=== PATIENT | female | born 1955 | race Caucasian/White ===

== ENCOUNTER 2016-10-18 09:25 | Inpatient (IN) | payer OTHER, MEDICARE ==
[2016-10-18] VITALS (17 sets, daily range): BP systolic 113–183; BP diastolic 75–126; PULSE 92–142; RESP 14–24; TEMP 97.6; O2SAT 98–100
[~2016-10-18] VITALS: Ht 157.5 cm; Wt 59.6 kg
[2016-10-18] MEDS ORDERED: ROCURONIUM INJ 50 MG/5 ML VIAL ONE (09:30)
[2016-10-18] MEDS ORDERED: ETOMIDATE 20 MG/10 ML VIAL ONE (09:30)
[2016-10-18] MEDS ORDERED: PIPERACIL-TAZO 4.5 GM PREMIX 100 ML IV STA (09:40)
[2016-10-18] MEDS ORDERED: SODIUM CHLOR 0.9% 1000 ML INJ 1,000 ML IV SCH (09:40)
[2016-10-18] MEDS ORDERED: VANCOMYCIN INJ 1,000 MG in SODIUM CHLOR 0.9% 250 ML INJ 250 ML IV STA (09:40)
[2016-10-18] MEDS ORDERED: NALOXONE HCL 2 MG/2 ML VIAL IV ONE (09:45)
[2016-10-18] MEDS ORDERED: SODIUM CHLORIDE 0.9% FLUSH 5 ML FLUSH IVF PRN ×2 (09:45)
[2016-10-18] MEDS ORDERED: ETOMIDATE 20 MG/10 ML VIAL IVP ONE (09:45)
[2016-10-18 10:07] LABS: I-STAT POTASSIUM 4.4 MMOL/L (3.5-4.9)
--- NOTE | 2016-10-18 10:07 | RADRPT ---
EXAM DATE/TIME: 10/18/2016 09:43 [facility] COMPARISON: No previous studies available for comparison. INDICATIONS : Post intubation. MEDICAL HISTORY : Unobtainable. SURGICAL HISTORY : Unobtainable. ENCOUNTER: Initial ACUITY: 1 day PAIN SCORE: Non-responsive. LOCATION: Bilateral chest FINDINGS: Hyperinflation. Endotracheal tube tip terminates 1.8 cm above the da. NG tube tip terminates in t he stomach. No consolidation or effusion. Heart size normal. Osseous structures are intact. CONCLUSION: Clear lungs. Evangelist Hurley MD on October 18, 2016 at 10:05 Board Certified Radiologist. This report was verified electronically.
[2016-10-18] MEDS ORDERED: IOHEXOL 350 MG/ML 10 ML VIAL (for RAD DIAG) IV ONE (10:08)
[2016-10-18 10:20] LABS: APTT (PATIENT) 26.6 SEC (24.3-30.1); PROTHROMBIN TIME - PATIENT 11.1 SEC (9.8-11.6)
[2016-10-18 10:22] LABS: AUTOMATED NEUTROPHIL # 17.2 TH/MM3 (1.8-7.7); BASOPHIL # 0.2 TH/MM3 (0-0.2); BASOPHIL % 1.2 % (0.0-2.0); EOSINOPHIL % 0.2 % (0.0-4.0); HEMATOCRIT 49.2 % (35.0-46.0); HEMO FLAGS DIFF FINAL; LYMPH % 5.5 % (9.0-44.0); LYMPHOCYTE # 1.1 TH/MM3 (1.0-4.8); MEAN CELL VOLUME 97.1 FL (80.0-100.0); MEAN CORPUSCULAR HEMOGLOBIN 32.8 PG (27.0-34.0); MEAN CORPUSCULAR HGB CONC 33.7 % (32.0-36.0); MONO % 5.6 % (0.0-8.0); NEUT % 87.5 % (16.0-70.0); PLATELET COUNT 502 TH/MM3 (150-450); RED BLOOD COUNT 5.07 MIL/MM3 (4.00-5.30); RED CELL DISTRIBUTION WIDTH 13.3 % (11.6-17.2); WHITE BLOOD COUNT 19.6 TH/MM3 (4.0-11.0)
[2016-10-18 10:25] LABS: ALT (GPT) 35 U/L (10-53)
[2016-10-18 10:28] LABS: AST (GOT) 49 U/L (15-37)
--- NOTE | 2016-10-18 10:29 | RADRPT ---
EXAM DATE/TIME: 10/18/2016 10:00 [facility] COMPARISON: No previous studies available for comparison. INDICATIONS : Altered mental status. RADIATION DOSE: 56.35 CTDIvol (mGy) MEDICAL HISTORY : Non-responsive. SURGICAL HISTORY : Non-responsive. ENCOUNTER: Initial ACUITY: 1 day PAIN SCALE: Non-responsive LOCATION: cranial TECHNIQUE: Multiple contiguous axial images were obtained of the head. Using automated exposure control and adj ustment of the mA and/or kV according to patient size, radiation dose was kept as low as reasonably a chievable to obtain optimal diagnostic quality images. FINDINGS: CEREBRUM: The ventricles are normal for age. No evidence of midline shift, mass lesion, hemorrhage or acute in farction. No extra-axial fluid collections are seen. POSTERIOR FOSSA: The cerebellum and brainstem are intact. The 4th ventricle is midline. The cerebellopontine angle i s unremarkable. EXTRACRANIAL: The visualized portion of the orbits is intact. SKULL: The calvaria is intact. No evidence of skull fracture. CONCLUSION: Normal examination. Eavngelist Hurley MD on October 18, 2016 at 10:27 Board Certified Radiologist. This report was verified electronically.
[2016-10-18 10:37] LABS: ACETAMINOPHEN LESS THAN 2.0 MCG/ML (10.0-30.0)
[2016-10-18 10:38] LABS: ALKALINE PHOSPHATASE 103 U/L (45-117); CREATINE KINASE 397 U/L (26-192); INDIRECT BILIRUBIN 0.5 MG/DL (0.0-0.8); TOTAL BILIRUBIN ADULT 0.6 MG/DL (0.2-1.0)
--- NOTE | 2016-10-18 10:39 | RADRPT ---
EXAM DATE/TIME: 10/18/2016 10:08 [facility] COMPARISON: No previous studies available for comparison. INDICATIONS : Evaluate for aortic dissection. IV CONTRAST: 75 cc Omnipaque 350 (iohexol) IV RADIATION DOSE: 6.45 CTDIvol (mGy) MEDICAL HISTORY : Non-responsive. SURGICAL HISTORY : Non-responsive. ENCOUNTER: Initial ACUITY: 1 day PAIN SCALE: Non-responsive LOCATION: Abdomen TECHNIQUE: Volumetric scanning was performed using a multi-row detector CT scanner. The data was post processed with a variety of visualization algorithms including full volume maximum intensity projection, multi -planar sliding thin slab reformation, curved planar reformation, and surface rendering techniques. Using automated exposure control and adjustment of the mA and/or kV according to patient size, radiat ion dose was kept as low as reasonably achievable to obtain optimal diagnostic quality images. FINDINGS: LUNGS: There is a mild infiltrate left lower lobe and mild atelectasis at the right lung base. MEDIASTINUM: No abnormally enlarged lymph nodes by CT criteria. No axillary or hilar abnormalities are identified. ABDOMEN: The liver and spleen are free of focal defects however there is mild nodular hepatic contour and left lobe hypertrophy. Cirrhosis suspected.. The gallbladder and pancreas demonstrate no abnormality. The adrenal glands are normal. The kidneys demonstrate no evidence of solid renal mass or hydronephrosis . No free fluid or abdominal masses are identified. No para-aortic adenopathy is seen. Cholelithiasis is identified. PELVIS: No evidence of free fluid or pelvic mass. No abnormally enlarged inguinal or retroperitoneal lymph no karie are present. The bladder is unremarkable. THORACIC AORTA: The thoracic aortic root is normal with normal branching of the great vessels. There is no evidence of aneurysm or dissection. ABDOMINAL AORTA: There is no aneurysm or dissection. Celiac, superior mesenteric artery, inferior mesenteric artery an d renal arteries are patent bilaterally. There is mild atherosclerotic plaquing identified throughout the abdomen and pelvis. PELVIC VESSELS: The internal iliac and external iliac vessels are patent without aneurysm or stenosis. CONCLUSION: 1. No evidence for aortic dissection. 2. Tree in bud infiltrate left lower lobe. Evangelist Hurley MD on October 18, 2016 at 10:34 Board Certified Radiologist. This report was verified electronically.
[2016-10-18 10:40] LABS: BLOOD GAS BASE EXCESS -7.4 mmol/L (-2-2); BLOOD GAS CARBOXYHEMOGLOBIN 1.8 % (0-4); BLOOD GAS HCO3 18 mmol/L (22-26); BLOOD GAS METHEMOGLOBIN 1.9 % (0-2); BLOOD GAS O2 HGB SATURATION 96 % (90-100); BLOOD GAS OXYGEN CONTENT 22.3 Vol % (12.0-20.0); BLOOD GAS PCO2 35 mmHg (38-42); BLOOD GAS PO2 250 mmHG (61-120); BLOOD GAS TOTAL HGB 16.2 G/DL (12.0-16.0); TEMP CORR TO 98.6
[2016-10-18 10:41] LABS: CRITICAL VALUE NO; DRAW SITE RT RADIAL; FIO2 50 %; NUMBER OF ARTERIAL PUNCTURES 1; OXYGEN DEVICE VENTILATOR; STAT YES; ULNAR PULSE PRESENT; VENT SETTINGS AC14/500/PEEP5
[2016-10-18] MEDS ORDERED: HEPARIN SODIUM - IV 10,000 UNITS/10 ML VIAL IV ONE (10:45)
[2016-10-18 10:53] LABS: CKMB 13.9 NG/ML (0.5-3.6)
[2016-10-18] MEDS ORDERED: DEXTROSE 50% IN WATER 50 ML VIAL(D50) IV PUSH PRN (11:00)
[2016-10-18] MEDS ORDERED: POTASSIUM PHOSPHATE MONOBASIC 500 MG TAB PO/TUBE PRN (11:00)
[2016-10-18] MEDS ORDERED: MAGNESIUM SULFATE INJ 4 GM in SODIUM CHLORIDE 0.9% INJ 92 ML IV PRN (11:00)
[2016-10-18] MEDS ORDERED: SODIUM PHOSPHATE INJ 30 MMOL in SODIUM CHLOR 0.9% 250 ML INJ 240 ML IV PRN (11:00)
[2016-10-18] MEDS ORDERED: MISCELLANEOUS NURSING INFORMATION XX SCH (11:00)
[2016-10-18] MEDS ORDERED: MAGNESIUM OXIDE 400 MG TAB PO PRN (11:00)
[2016-10-18] MEDS ORDERED: POTASSIUM CL 40 MEQ/30 ML LIQ UDC PO/TUBE PRN ×2 (11:00)
[2016-10-18] MEDS ORDERED: MAGNESIUM SULFATE INJ 2 GM in SODIUM CHLORIDE 0.9% INJ 96 ML IV PRN (11:00)
[2016-10-18] MEDS ORDERED: ONDANSETRON HCL 4 MG/2 ML VIAL IV PRN (11:00)
[2016-10-18] MEDS ORDERED: CHLORHEXIDINE GLUCONATE 2 % 1 PACK (2 CLOTHS) TOP PRN (11:00)
[2016-10-18] MEDS ORDERED: POTASSIUM CHLOR 40 MEQ PREMIX 100 ML IV PRN ×2 (11:00)
[2016-10-18] MEDS ORDERED: SODIUM CHLORIDE 0.9% FLUSH 5 ML FLUSH IV FLUSH PRN (11:00)
[2016-10-18] MEDS ORDERED: POTASSIUM PHOSPHATE MONOBASIC 500 MG TAB PO PRN (11:00)
[2016-10-18] MEDS ORDERED: POTASSIUM PHOSPHATE INJ 30 MMOL in SODIUM CHLOR 0.9% 250 ML INJ 250 ML IV PRN (11:00)
[2016-10-18] MEDS ORDERED: METOPROLOL TARTRATE 5 MG/5 ML VIAL IV PUSH ONE ×2 (11:15→17:00)
[2016-10-18 11:19] LABS: BACTERIA, URINE RARE /hpf; BLOOD, URINE SMALL (NEG); COMMENT (UR) CATH-CULTURE IND; CULTURE IF INDICATED CATH CULTURE IND; GLUCOSE,URINE NEG (NEG); HYALINE CAST, URINE 7 /lpf (RARE); KETONE, URINE TRACE mg/dL (NEG); MUCUS URINE FEW /lpf (OCC); NITRITE,URINE NEG (NEG); PH, URINE 6.5 (5.0-8.5); SQUAMOUS EPITHELIAL CELL URINE 1 /hpf (0-5); URINE COLOR LIGHT-YELLOW (YELLW/STRAW)
[2016-10-18 11:31] LABS: AMPHETAMINE, URINE NEG (NEG); BARBITURATES, URINE NEG (NEG); COCAINE, URINE NEG (NEG)
[2016-10-18] MEDS: PROPOFOL 1000 MG/100 ML INJ 100 ML IV SCH (11:45)
--- NOTE | 2016-10-18 11:48 | PD ---
HPI Chief Complaint: Altered Mental Status Time Seen by Provider: 09:40 Travel History International Travel<30 days: No Contact w/Intl Traveler<30days: No Traveled to known affect area: No History of Present Illness HPI Patient is a 61-year-old female presents emergency department via EMS with altered mental status. Patient found by a friend unresponsive in her home this morning. Unknown when she was last seen normal. Vital signs stable per EMS en route, but GCS 3. Friends state that she apparently wears morphine patches, but no patches were found on patient. Pupils 3 per EMS. No Narcan administered prior to arrival. EMS noted dried vomitus around the mouth and hair. No family present at this time. [facility] Past Medical History Medical History: Unable to Obtain Influenza Vaccination: No ?: Unknown Past Surgical History Surgical History: Unable to Obtain Social History Alcohol Use: No (UNKNOWN) Tobacco Use: No (UNKNOWN ) Substance Use: No (UNKNOWN) Allergies-Medications (Allergen,Severity, Reaction): Coded Allergies: UNOBTAINABLE (Unverified , 10/18/16) Review of Systems ROS Limitations: Clinical Condition, Altered Mental Status Physical Exam Exam Limitations: Clinical Condition, Altered Mental Status Narrative GENERAL: Adult female appearing older than stated age, thin in no acute distress SKIN: Warm and dry. HEAD: Atraumatic. Normocephalic. EYES: Pupils equal and round. 2-3 mm, reactive bilaterally. No scleral icterus. No injection or drainage. ENT: Poor dentition. No gag reflex. NECK: Supple CARDIOVASCULAR: Regular rate and rhythm. No murmur appreciated. Hypertensive. RESPIRATORY: No accessory muscle use. Clear to auscultation. Breath sounds equal bilaterally. GASTROINTESTINAL: Abdomen soft, non-tender, nondistended. MUSCULOSKELETAL: No obvious deformities. No clubbing. No cyanosis. No edema. NEUROLOGICAL: GCS 3. No gag reflex. PSYCHIATRIC: Deferred given mental status Data Data Last Documented VS Vital Signs Date Time Temp Pulse Resp B/P Pulse Ox O2 Delivery O2 Flow Rate FiO2 10/18/16 10:39 119 14 183/126 99 Ventilator 50 10/18/16 09:28 97.6 Orders Etomidate Inj (Amidate Inj) (10/18/16 09:30) Rocuronium Inj (Zemuron Inj) (10/18/16 09:30) Electrocardiogram (10/18/16 09:40) Alcohol (Ethanol) (10/18/16 09:40) Ammonia (10/18/16 09:40) Complete Blood Count With Diff (10/18/16 09:40) Creatine Kinase (Cpk) (10/18/16 09:40) Drug Screen, Random Urine (10/18/16 09:40) Prothrombin Time / Inr (Pt) (10/18/16 09:40) Act Partial Throm Time (Ptt) (10/18/16 09:40) Salicylates (Aspirin) (10/18/16 09:40) Troponin I (10/18/16 09:40) Tylenol (Acetaminophen) (10/18/16 09:40) Thyroid Stimulating Hormone (10/18/16 09:40) Lactic Acid Sepsis Protocol (10/18/16 09:40) Urinalysis - C+S If Indicated (10/18/16 09:40) Arterial Blood Gas (Abg) (10/18/16 09:40) Blood Culture (10/18/16 09:40) Chest, Single Ap (10/18/16 09:40) Ct Brain W/O Iv Contrast(Rout) (10/18/16 09:40) Ecg Monitoring (10/18/16 09:40) Iv Access Insert/Monitor (10/18/16 09:40) Oximetry (10/18/16 09:40) Urinary Catheter Insert/Apply (10/18/16 09:40) Naloxone Inj (Narcan Inj) (10/18/16 09:45) Sodium Chloride 0.9% Flush (Ns Flush) (10/18/16 09:45) Sodium Chlor 0.9% 1000 Ml Inj (Ns 1000 M (10/18/16 09:40) Ng Gastric Tube Insert/Monitor (10/18/16 09:40) Etomidate Inj (Amidate Inj) (10/18/16 09:45) Sodium Chloride 0.9% Flush (Ns Flush) (10/18/16 09:45) Restraints Non-Violent JOHN.Q3H (10/18/16 09:40) Lipase (10/18/16 09:40) Vancomycin Inj (Vancomycin Inj) (10/18/16 09:40) Piperacil-Tazo 4.5 Gm Premix (Zosyn 4.5 (10/18/16 09:40) Cta Thor Abd Aorta W Iv C W3d (10/18/16 09:45) I-Stat Profile (10/18/16 09:45) I-Stat Creatinine (10/18/16 09:45) Iohexol 350 Inj (Omnipaque 350 Inj) (10/18/16 10:08) Hepatic Functional Panel (10/18/16 09:35) CKMB (10/18/16 09:35) CKMB% (10/18/16 09:35) Heparin Infusion JOHN.Q1H (10/18/16 10:42) Heparin Inj (Heparin Inj) (10/18/16 10:45) Heparin Inj (Heparin Inj) (10/18/16 16:45) Heparin Inj (Heparin Inj) (10/18/16 16:45) Heparin-D5w Inj (Heparin-D5w Inj) (10/18/16 10:45) Cbc No Diff, Includes Plts (10/21/16 06:00) Act Partial Throm Time (Ptt) (10/18/16 17:42) Occult Blood (Hemoccult) Stool (10/18/16 10:42) Electrocardiogram (10/18/16 ) Admit Order (Ed Use Only) (10/18/16 11:00) Labs Laboratory Tests Test 10/18/16 10/18/16 10/18/16 09:35 10:30 10:50 White Blood Count 19.6 TH/MM3 Red Blood Count 5.07 MIL/MM3 Hemoglobin 16.6 GM/DL Bedside Hemoglobin 18.0 G/DL Hematocrit 49.2 % Bedside Hematocrit 53.0 % Mean Corpuscular Volume 97.1 FL Mean Corpuscular Hemoglobin 32.8 PG Mean Corpuscular Hemoglobin 33.7 % Concent Red Cell Distribution Width 13.3 % Platelet Count 502 TH/MM3 Mean Platelet Volume 7.3 FL Neutrophils (%) (Auto) 87.5 % Lymphocytes (%) (Auto) 5.5 % Monocytes (%) (Auto) 5.6 % Eosinophils (%) (Auto) 0.2 % Basophils (%) (Auto) 1.2 % Neutrophils # (Auto) 17.2 TH/MM3 Lymphocytes # (Auto) 1.1 TH/MM3 Monocytes # (Auto) 1.1 TH/MM3 Eosinophils # (Auto) 0.0 TH/MM3 Basophils # (Auto) 0.2 TH/MM3 CBC Comment DIFF FINAL Differential Comment Prothrombin Time 11.1 SEC Prothromb Time International 1.0 RATIO Ratio Activated Partial 26.6 SEC Thromboplast Time Bedside Sodium 131 MMOL/L Bedside Potassium 4.4 MMOL/L Bedside Chloride 105 MMOL/L Bedside Blood Urea Nitrogen 13 MG/DL Bedside Creatinine 1.3 MG/DL Bedside Glucose 142 MG/DL Total Bilirubin 0.6 MG/DL Direct Bilirubin 0.1 MG/DL Indirect Bilirubin 0.5 MG/DL Aspartate Amino Transf 49 U/L (AST/SGOT) Alanine Aminotransferase 35 U/L (ALT/SGPT) Alkaline Phosphatase 103 U/L Total Creatine Kinase 397 U/L Creatine Kinase MB 13.9 NG/ML Creatine Kinase MB % 3.5 % Troponin I 4.80 NG/ML Total Protein 7.6 GM/DL Albumin 3.9 GM/DL Lipase 145 U/L Thyroid Stimulating Hormone 0.269 uIU/ML 3rd Gen Salicylates Level 4.5 MG/DL Acetaminophen Level LESS THAN 2.0 MCG/ML Ethyl Alcohol Level LESS THAN 3 MG/DL Blood Gas Puncture Site RT RADIAL Blood Gas Patient Temperature 98.6 Blood Gas HCO3 18 mmol/L Blood Gas Base Excess -7.4 mmol/L Blood Gas Oxygen Saturation 96 % Arterial Blood pH 7.32 Arterial Blood Partial 35 mmHg Pressure CO2 Arterial Blood Partial 250 mmHG Pressure O2 Arterial Blood Oxygen Content 22.3 Vol % Arterial Blood 1.8 % Carboxyhemoglobin Arterial Blood Methemoglobin 1.9 % Blood Gas Hemoglobin 16.2 G/DL Oxygen Delivery Device VENTILATOR Blood Gas Ventilator Setting AC14/500/PEEP5 Blood Gas Inspired Oxygen 50 % Urine Color LIGHT-YELLOW Urine Turbidity CLEAR Urine pH 6.5 Urine Specific [place] 1.050 Urine Protein 30 mg/dL Urine Glucose (UA) NEG mg/dL Urine Ketones TRACE mg/dL Urine Occult Blood SMALL Urine Nitrite NEG Urine Bilirubin NEG Urine Urobilinogen LESS THAN 2.0 MG/DL Urine Leukocyte Esterase NEG Urine RBC 3 /hpf Urine WBC 5 /hpf Urine Squamous Epithelial 1 /hpf Cells Urine Bacteria RARE /hpf Urine Hyaline Casts 7 /lpf Urine Mucus FEW /lpf Microscopic Urinalysis Comment CATH-CULTURE IND Urine Opiates Screen NEG Urine Barbiturates Screen NEG Urine Amphetamines Screen NEG Urine Benzodiazepines Screen POS Urine Cocaine Screen NEG Urine Cannabinoids Screen NEG MDM Medical Decision Making Medical Screen Exam Complete: Yes Emergency Medical Condition: Yes Medical Record Reviewed: Yes Differential Diagnosis 61-year-old female here with altered mental status, unknown when she was last seen normal. Patient is GCS 3. Differential includes ICH, ischemic CVA, elect to light abnormality, hyperammonemia, alcohol intoxication, overdose, benzodiazepine versus opioid versus other, arrhythmia, electrolyte abnormality, ACS. No evidence of hypoxic versus hypercapnic respiratory failure at this time. Narrative Course Patient met by myself upon emergency department arrival. Placed on monitor, IV established and blood obtained. Given her pupils are 2-3 mm she was given 2 mg of Narcan with no improvement. Patient remains GCS 3 with no gag reflex. Intubated by myself, please see procedure note. Patient tolerated procedure well. Post procedure chest x-ray shows endotracheal tube in good position. OG and Garces were placed. Twelve-lead EKG was obtained showing sinus rhythm with ST elevation in leads V2, V3, V4. No reciprocal changes were seen. STEMI alert was activated given her altered mental status and inability to tell me whether she is or is not having chest pain. With her altered mental status or for she would be anticoagulated we would need a head CT in addition to a CT dissection study to rule out dissection because of her altered mental status. Patient was expedited to CT. CT of the brain was negative. CT of the chest abdomen and pelvis were unremarkable. Patient was given heparin bolus and drip. On CT she did also have a lower lobe pulmonary infiltrate and so was covered with vancomycin and Zosyn. This very well may be aspiration related given her vomitus on the face and hair. I spoke with Dr. Cruz of cardiology, and given patient's clinical picture, we decided to obtain troponin and stat echocardiogram as her EKG does not show any evolving changes, no reciprocal changes and is not classic for STEMI. A stat bedside echo was performed, results remain pending at the time this dictation, but preliminarily she does appear to have some apical hypokinesis but this does not appear to be focal to anterior vessel distribution. Decision made with myself, Dr. Cruz, and Dr. Purvis and svp business development to monitor her and treat her medically. Patient therefore was not brought to the cardiac catheterization lab. She was given 1 L normal saline bolus. Laboratory workup notable for WBC 19.6, hemoglobin 8.0, CPK 397, CK-MB percentage 3.5, troponin 4.8. Positive benzodiazepines in the urine. Critical Care Narrative Aggregate critical care time was 55 minutes. Time to perform other separately billable procedures was not included in the critical care time. My time did not include minutes spent treating any other patients simultaneously or on activities that did not directly contribute to the patient's treatment. The services I provided to this patient were to treat and/or prevent clinically significant deterioration that could result in: Neurologic decompensation, cardiopulmonary decompensation, , disability I provided critical care services requiring my management, as noted below: Chart data review, documentation time, medication orders and management, vital sign assessments/reviewing monitor data, ordering and reviewing lab tests, ordering and interpreting/reviewing x-rays and diagnostic studies, care of the patient and discussion of the patient with the admitting physicians. Procedures Procedure Narrative Risks and benefits were not discussed as patient is altered procedure was deemed emergent INTUBATION: The patient was put in optimal position for the procedure. Rapid sequence intubation was initiated by me using 15 milligrams of etomidate IV and 55 milligrams of rocuronium IV. The patient was intubated with a 7-5 cuffed endotracheal tube. Tube placement was confirmed by visualization of the tube and balloon passing through the cords, capnometry and subsequent chest x-ray. Breath sounds were equal and well aerated bilaterally postintubation. No breath sounds over stomach. Patient tolerated procedure well. Sepsis Criteria SIRS Criteria (2 or more): Heart rate over 90, RR > 20 or PaCO2 < 32, WBC > 09030, < 4000 or > 10% bands Sepsis Criteria (SIRS+source): Infect source susp/known Criteria Outcome: Meets SIRS criteria, Meets sepsis criteria Diagnosis Primary Impression: Altered mental status Qualified Code: R40.2431 - [place] coma scale total score 3-8, in the field ( EMT or ambulance) Additional Impressions: Leukocytosis Qualified Code: D72.829 - Leukocytosis, unspecified type Left lower lobe pneumonia Qualified Code: J18.1 - Pneumonia of left lower lobe due to infectious organism ST elevation OR (STEMI) Qualified Code: I21.3 - ST elevation myocardial infarction (STEMI), unspecified artery Elevated troponin Sepsis Qualified Code: A41.9 - Sepsis, due to unspecified organism Admitting Information Admitting Physician Requests: Admit Elba Gonzalez MD Oct 18, 2016 11:48
--- NOTE | 2016-10-18 11:51 | EC ---
Study Study Date:10/18/2016 STUDY CONCLUSIONS SUMMARY - Left ventricle: The cavity size was normal. Wall thickness was normal. Systolic function was mildly to moderately reduced. The estimated ejection fraction was in the range of 40% to 45%. Diffuse hypokinesis in all mid to distal territories. There is also some thinning suggestive of a more chronic process. - Mitral valve: Mildly calcified annulus. If LV function is below 40, please consider prescribing an ACEI or ARB or document rationale for non-use. PROCEDURE DATA STUDY STATUS: Elective. Procedure: Transthoracic echocardiography. Image quality was good. Scanning was performed from the parasternal, apical, and subcostal acoustic windows. Study completion: The patient tolerated the procedure well. Transthoracic echocardiography. M-mode, complete 2D, complete spectral Doppler, and color Doppler. Patient status: Inpatient. CARDIAC ANATOMY LEFT VENTRICLE: The cavity size was normal. Wall thickness was normal. Systolic function was mildly to moderately reduced. The estimated ejection fraction was in the range of 40% to 45%. Diffuse hypokinesis in all mid to distal territories. There is also some thinning suggestive of a more chronic process. AORTIC VALVE: Trileaflet; normal thickness leaflets. Doppler: Transvalvular velocity was within the normal range. There was no stenosis. No regurgitation. AORTA: Aortic root: The aortic root was normal in size. MITRAL VALVE: Mildly calcified annulus. Doppler: Transvalvular velocity was within the normal range. There was no evidence for stenosis. Trace to mild regurgitation. LEFT ATRIUM: The atrium was normal in size. RIGHT VENTRICLE: The cavity size was normal. Wall thickness was normal. PULMONIC VALVE: Doppler: Transvalvular velocity was within the normal range. There was no evidence for stenosis. No regurgitation. TRICUSPID VALVE: Structurally normal valve. Doppler: Transvalvular velocity was within the normal range. No regurgitation. PULMONARY ARTERY: The main pulmonary artery was normal-sized. Systolic pressure was within the normal range. RIGHT ATRIUM: The atrium was normal in size. PERICARDIUM: There was no pericardial effusion. SYSTEMIC VEINS: Inferior vena cava: The vessel was normal in size. BASIC MEASUREMENTS ADULT NORMAL Left ventricle LV internal dimension, ED, chordal level, 43.1 mm 43-52 PLAX LV internal dimension, ES, chordal level, 36.5 mm 23-38 PLAX Fractional shortening, chordal level, PLAX *15 % >29 LV posterior wall thickness, ED 9.63 mm IVS/LVPW ratio, ED 1.24 <1.3 Ventricular septum Septal thickness, ED 11.9 mm Aortic valve Leaflet separation 22 mm 15-26 Right ventricle RV internal dimension, ED, PLAX *15.4 mm 19-38 BASIC MEASUREMENTS ADULT NORMAL Aortic valve Leaflet separation 22 mm 15-26 Aorta Root diameter, ED 28 mm 20-37 Left atrium Anterior-posterior dimension, ES 36 mm 19-40 LA/aortic root ratio 1.29 LEGEND: Mean values are shown as u=mean value. Asterisk (*) mcnamara values outside specified normal range. Prepared and signed by Cait Cruz [id number]
[2016-10-18] MEDS: INSULIN NovoLIN REGULAR SUPPLEMENTAL SCALE SQ SCH ×2 (12:00→19:30)
[2016-10-18] MEDS: HEPARIN-D5W INJ 250 ML IV SCH (12:26)
--- NOTE | 2016-10-18 12:40 | HHI.HP ---
[facility] Service Critical Care Medicine Primary Care Physician Unknown Admission Diagnosis AMS, acute resp failure, STEMI Diagnosis: Chief Complaint: altered mental status Travel History International Travel<30 Days: No Contact w/Intl Traveler <30 Da: No Traveled to Known Affected Are: No History of Present Illness This is a 61-year-old female with an unknown past medical history who was found down and unresponsive by a friend this morning. We do not know when she was last seen normal. We do not know anything about her past medical history. Per EMS, her vital signs were stable. Initially she was a GCS of 3 on scene. Narcan did not improve her mental status. There are significant dried emesis around her mouth. She was brought in by EMS and was intubated. In the emergency department, it was noted that the patient had significant ST elevations in lead V2 through V4. Cardiology was stat consulted. A stat echo was performed. Her labs are remarkable for a troponin of almost 5, but a normal MB ratio. A white count of 19,000. The patient is intubated and obtunded, and unable to provide any history. Critical care medicines were consulted to evaluate and manage her altered mental status, her possible acute coronary syndrome. Review of Systems ROS Limitations: Clinical Condition, Intubated, Altered Mental Status, Unresponsive Past Family Social History Allergies: Coded Allergies: UNOBTAINABLE (Unverified , 10/18/16) Past Medical History Unknown and unobtainable secondary to patient's clinical condition Past Surgical History Unknown and unobtainable secondary to patient's clinical condition Reported Medications Unknown and unobtainable secondary to patient's clinical condition Active Ordered Medications See MAR Family History Unknown and unobtainable secondary to patient's clinical condition Social History Unknown and unobtainable secondary to patient's clinical condition Physical Exam Vital Signs Vital Signs Date Time Temp Pulse Resp B/P Pulse Ox O2 Delivery O2 Flow Rate FiO2 10/18/16 11:46 97 19 157/100 100 50 10/18/16 10:39 119 14 183/126 99 Ventilator 50 10/18/16 10:24 100 100 10/18/16 09:45 98 50 10/18/16 09:45 50 10/18/16 09:36 142 24 168/119 100 10/18/16 09:28 97.6 125 24 180/90 98 Physical Exam GENERAL: Middle-aged female, appears older than stated age, intubated, sedated, very critically ill. HEENT: Normocephalic. Atraumatic. Pupils 3-4 mm, minimally reactive, equal, conjugate. Mucous membranes are moist NECK: Trachea is midline. There is no JVD. Orotracheally intubated CHEST: Equal chest rise. Clear to auscultation. CARDIOVASCULAR: Normal rate, regular rhythm. S1 and S2 without appreciable murmurs. ABDOMEN: Common nontender, nondistended. No guarding. MUSCULOSKELETAL: No peripheral edema. Distal pulses 2+. NEUROLOGICAL: RASS -3. CAM +. GCS 6 (E1V1M4). Moves all extremity spontaneously. Does not follow commands. Does not withdraw to pain. Does not open eyes to painful stimuli. Laboratory Laboratory Tests Test 10/18/16 10/18/16 10/18/16 09:35 10:30 10:50 White Blood Count 19.6 Red Blood Count 5.07 Hemoglobin 16.6 Bedside Hemoglobin 18.0 Hematocrit 49.2 Bedside Hematocrit 53.0 Mean Corpuscular Volume 97.1 Mean Corpuscular Hemoglobin 32.8 Mean Corpuscular Hemoglobin 33.7 Concent Red Cell Distribution Width 13.3 Platelet Count 502 Mean Platelet Volume 7.3 Neutrophils (%) (Auto) 87.5 Lymphocytes (%) (Auto) 5.5 Monocytes (%) (Auto) 5.6 Eosinophils (%) (Auto) 0.2 Basophils (%) (Auto) 1.2 Neutrophils # (Auto) 17.2 Lymphocytes # (Auto) 1.1 Monocytes # (Auto) 1.1 Eosinophils # (Auto) 0.0 Basophils # (Auto) 0.2 CBC Comment DIFF FINAL Differential Comment Prothrombin Time 11.1 Prothromb Time International 1.0 Ratio Activated Partial 26.6 Thromboplast Time Bedside Sodium 131 Bedside Potassium 4.4 Bedside Chloride 105 Bedside Blood Urea Nitrogen 13 Bedside Creatinine 1.3 Bedside Glucose 142 Total Bilirubin 0.6 Direct Bilirubin 0.1 Indirect Bilirubin 0.5 Aspartate Amino Transf 49 (AST/SGOT) Alanine Aminotransferase 35 (ALT/SGPT) Alkaline Phosphatase 103 Total Creatine Kinase 397 Creatine Kinase MB 13.9 Creatine Kinase MB % 3.5 Troponin I 4.80 Total Protein 7.6 Albumin 3.9 Lipase 145 Thyroid Stimulating Hormone 0.269 3rd Gen Salicylates Level 4.5 Acetaminophen Level LESS THAN 2.0 Ethyl Alcohol Level LESS THAN 3 Blood Gas Puncture Site RT RADIAL Blood Gas Patient Temperature 98.6 Blood Gas HCO3 18 Blood Gas Base Excess -7.4 Blood Gas Oxygen Saturation 96 Arterial Blood pH 7.32 Arterial Blood Partial 35 Pressure CO2 Arterial Blood Partial 250 Pressure O2 Arterial Blood Oxygen Content 22.3 Arterial Blood 1.8 Carboxyhemoglobin Arterial Blood Methemoglobin 1.9 Blood Gas Hemoglobin 16.2 Oxygen Delivery Device VENTILATOR Blood Gas Ventilator Setting AC14/500/PEEP5 Blood Gas Inspired Oxygen 50 Urine Color LIGHT-YELLOW Urine Turbidity CLEAR Urine pH 6.5 Urine Specific [place] 1.050 Urine Protein 30 Urine Glucose (UA) NEG Urine Ketones TRACE Urine Occult Blood SMALL Urine Nitrite NEG Urine Bilirubin NEG Urine Urobilinogen LESS THAN 2.0 Urine Leukocyte Esterase NEG Urine RBC 3 Urine WBC 5 Urine Squamous Epithelial 1 Cells Urine Bacteria RARE Urine Hyaline Casts 7 Urine Mucus FEW Microscopic Urinalysis Comment CATH-CULTURE IND Urine Opiates Screen NEG Urine Barbiturates Screen NEG Urine Amphetamines Screen NEG Urine Benzodiazepines Screen POS Urine Cocaine Screen NEG Urine Cannabinoids Screen NEG Date/Time Procedure Status Source Growth 10/18/16 10:50 Urine Culture Received Urine Catheterized Urine Pending Result Diagram: 10/18/16 0935 Assessment and Plan Assessment and Plan Assessment: This is a 61-year-old female with an unknown past medical history who was found down for an unknown period of time. Per report, both EMS and the ER, she has remained hemodynamically stable throughout her time. There is no evidence that she had any prior ACLS or cardiac event. I had a long conversation with Dr. Cruz, on-call body make up artist. We both agreed that given the unknown clinical course, the atypical EKG findings, the echo which is equivocal, and a normal MB ratio, the risk-benefit ratio of left heart catheterization emergently probably weighs in favor of conservative measures and against emergent catheterization. For her altered mental status, certainly metabolic causes such as sepsis or hepatic dysfunction should be considered. From an infectious etiology, viral or bacterial meningitis could also be a cause , however, given that we are treating her conservatively for possible acute coronary syndrome, I do not think that the risk-benefit ratio of a diagnostic lumbar puncture is warranted at this time while she is on therapeutic heparin for her acute coronary syndrome. If this is still a diagnostic possibility after we have investigated her acute coronary syndrome, we will pursue lumbar puncture at that time. We will also attempt to obtain any health records from the patient. For now, she remains very critically ill. Active problems: Acute coronary syndrome Acute encephalopathyunknown type Acute hypoxic and hypercarbic respiratory failure Plan: Admit to the ICU Trend troponins every 6 --heparin infusion for ACS, goal PTT 60 - 80 Goal heart rate less than 90 Continue heparin infusion for possible acute coronary syndrome Cardiology following Every hour neuro checks Portable EEG Propofol as needed for vent synchrony and sedation. Goal RASS -1 We will hold long-acting sedating meds Mckay culture including blood, urine, sputum Continue vancomycin with pharmacy dosing We will switch from Zosyn to Rocephin 2 g IV every 12 for meningitic empiric coverage We will add Flagyl to cover anaerobes in the setting of probable aspiration Daily CBC, BMP check ammonia level We will give her an aspirin now and start 325 mg daily Nothing by mouth for now Strict I's and O's with Garces catheter placement for accurate monitoring SCDs for DVT prophylaxis, Protonix for GI prophylaxis. She remains critically ill. This patient remains critically ill with one or more organ systems which are or may become a threat to life. I have spent in excess of 50 minutes discontinuously in the care and management of this patient. This time is exclusive of procedures, and includes, but is not limited to, evaluation of the patient, review of the medical record, discussions with family, consultants, nursing staff, or respiratory therapy, and documentation in the medical record. Code Status Full Code Discussed Condition With Dr. Cruz, Dr. Loc Thakur,Edgardo Lopez MD Oct 18, 2016 12:40
--- NOTE | 2016-10-18 13:02 | MB ---
cc: DEX SALGUERO MD DATE OF CONSULTATION: 10/18/2016 REASON FOR CONSULTATION: Possible STEMI alert HISTORY OF PRESENT ILLNESS Ms. Stanton is a 61-year-old female who was found down by a neighbor. They called 911 and she was brought to the emergency room. The patient is not responsive, intubated on the ventilator. Thus, she is unable to give any history. OUTPATIENT MEDICATIONS, FAMILY HISTORY, SOCIAL HISTORY, REVIEW OF SYSTEMS: Unobtainable, secondary to altered mental status. PHYSICAL EXAMINATION Vital signs: Initially heart rate 125, respiratory rate 24, blood pressure 180/90. GENERAL: She is a thin female, who is in no apparent distress on the ventilator. LUNGS: Some scattered rhonchi. CARDIOVASCULAR: She has a normal S1-S2. There are no murmurs, rubs, or gallops. ABDOMEN: Soft. EXTREMITIES: Free from edema. The left leg is moving, otherwise she is fairly flaccid. CTA of the aorta shows no evidence for aortic dissection and there is left lower lobe infiltrate. LABORATORY VALUES: Significant for white count of 19.6, hemoglobin of 18, hematocrit of 49. The creatinine is 1.3 with a troponin of 4.8. The CK total is 397 with MB of 13.9 and MB% of 3.5. EKG shows sinus tachycardia with a short NE interval. There is NE depression and notched J-waves with anterior ST elevation. IMPRESSION Elevated troponin and abnormal EKG. The patient was found down without a clear etiology. The head CT and aortic CT were negative for an etiology for the patient's current situation. Her cardiac enzymes have shown an elevated troponin with a negative MB percent. The EKG changes are not typical for ST elevation [place], rather more consistent with pericarditis type of pattern. Given her unknown down time, altered mental status with low GCS score, and atypical EKG changes for STEMI, I have requested a stat echocardiogram. At this point I think conservative measures with ICU evaluation and possible cool protocol may be more appropriate. Dex Salguero M.D. ALMA/CHRISTY /11:13 AM /12:52 PM
--- NOTE | 2016-10-18 13:40 | EKG ---
Date Performed: 10/18/2016 Time Performed: 09:43:03 PTAGE: 61 years EKG: SINUS TACHYCARDIA SEPTAL MYOCARDIAL INFARCTION ST ELEVATION, CONSIDER ANTERIOR INJURY AC JYOTI CA THERE IS NO PRIOR TRACING FOR COMPARISON SO IN THE ABSENSE OF RECIPROCAL CHANGE THE ANTEROL ATERAL ST ELEVATION IS LESS DIAGNOSTIC BUT IT IS CLEARLY CONSISTENT WITH AN ST SEGMENT ELEVATION INFA RCTION AND CLINICAL CORRELATION WILL BE IMPORTANT. THE PATIENT ALSO HAS EVIDENCE OF RIGHT ATRIAL STRA IN SO PULMONARY EMBOLIS SHOULD BE CONSIDERED AND EXCLUDED IN THE SETTING OF THE SINUS TACHYCARDIA. NO PREVIOUS TRACING DOCTOR: Anita Guevara Interpretating Date/Time 10/18/2016 13:36:23
--- NOTE | 2016-10-18 13:40 | EKG ---
Date Performed: 10/18/2016 Time Performed: 10:47:49 PTAGE: 61 years EKG: SINUS TACHYCARDIA RIGHT ATRIAL ENLARGEMENT ST ELEVATION CONSISTENT WITH INJURY, PERICARDITI S, OR EARLY REPOLARIZATION NONSPECIFIC ST & T-WAVE ABNORMALITY ABNORMAL ECG Compared to PREVIOUS TRACING , there has been no significant serial change. Clinical correlation jania ins important. PREVIOUS TRACIN10/18/2016 09.43 DOCTOR: Anita Guevara Interpretating Date/Time 10/18/2016 13:37:08
[2016-10-18] MEDS ORDERED: PIPERACIL-TAZO 3.375 GM PREMIX 50 ML IV SCH (15:15)
[2016-10-18] MEDS ORDERED: Vancomycin Consult Pharmacy 1 EA OTHER SCH (15:15)
[2016-10-18] MEDS ORDERED: ASPIRIN 325 MG TAB PO ONE (15:30)
[2016-10-18 16:20] LABS: CKMB 22.1 NG/ML (0.5-3.6)
[2016-10-18] MEDS: RESP: ALBUTEROL 2.5 MG/IPRATROPIUM 0.5 MG NEB (SCH) INH ×2 (16:41→22:04)
[2016-10-18] MEDS ORDERED: HEPARIN SODIUM - IV 10,000 UNITS/10 ML VIAL IV PRN ×2 (16:45)
[2016-10-18] MEDS: cefTRIAXone INJ 2,000 MG in SODIUM CHLORIDE 0.9% INJ 100 ML IV SCH (17:00)
[2016-10-18] MEDS: metroNIDAZOLE 500 MG INJ 100 ML IV SCH ×2 (17:12→23:32)
[2016-10-18 19:45] LABS: APTT (PATIENT) 54.7 SEC (24.3-30.1)
[2016-10-18] MEDS: CHLORHEXIDINE 0.12% (ORAL KIT) 15 ML CUP MT SCH (20:00)
[2016-10-18] MEDS ORDERED: NOREPINEPHRINE-DEXTROSE DRIP 250 ML IV ONE (20:44)
[2016-10-18] MEDS: DOCUSATE SODIUM 50 MG/SENNA 8.6 MG TAB PO SCH (21:00)
[2016-10-18] MEDS: SODIUM CHLORIDE 0.9% FLUSH 5 ML FLUSH IV FLUSH SCH (21:00)
[2016-10-18] MEDS: POLYETHYLENE GLYCOL 17 GM PKG PO SCH (21:00)
[2016-10-18] MEDS ORDERED: NOREPINEPHRINE-DEXTROSE DRIP 250 ML IV SCH (21:15)
[2016-10-18] MEDS ORDERED: TERBUTALINE INJ 1 MG/ML AMP SQ PRN (21:15)
[2016-10-18] MEDS ORDERED: LACTULOSE SYRUP 20 GM/30 ML CUP PO ONE (21:15)
[2016-10-18] MEDS ORDERED: SODIUM CHLOR 0.9% 250 ML INJ 250 ML IV ONE (21:15)
[2016-10-18 21:24] LABS: LACTIC ACID GHOST NOT REPORTABLE
[2016-10-18] MEDS ORDERED: fentaNYL DRIP 250 ML IV SCH (21:30)
[2016-10-18 21:39] LABS: AMPHETAMINE, URINE NEG (NEG); BARBITURATES, URINE NEG (NEG); COCAINE, URINE NEG (NEG)
[2016-10-18 22:40] LABS: AUTOMATED NEUTROPHIL # 16.5 TH/MM3 (1.8-7.7); BASOPHIL # 0.1 TH/MM3 (0-0.2); BASOPHIL % 0.3 % (0.0-2.0); EOSINOPHIL % 0.1 % (0.0-4.0); HEMATOCRIT 48.3 % (35.0-46.0); HEMO FLAGS DIFF FINAL; LYMPH % 6.6 % (9.0-44.0); LYMPHOCYTE # 1.2 TH/MM3 (1.0-4.8); MEAN CELL VOLUME 96.8 FL (80.0-100.0); MEAN CORPUSCULAR HEMOGLOBIN 32.7 PG (27.0-34.0); MEAN CORPUSCULAR HGB CONC 33.8 % (32.0-36.0); MONO % 5.3 % (0.0-8.0); NEUT % 87.7 % (16.0-70.0); PLATELET COUNT 465 TH/MM3 (150-450); RED BLOOD COUNT 4.99 MIL/MM3 (4.00-5.30); RED CELL DISTRIBUTION WIDTH 13.5 % (11.6-17.2); WHITE BLOOD COUNT 18.8 TH/MM3 (4.0-11.0)
[2016-10-18 22:50] LABS: APTT (PATIENT) 75.2 SEC (24.3-30.1); INTERNATIONAL NORMALIZED RATIO 1.1 RATIO; PROTHROMBIN TIME - PATIENT 12.4 SEC (9.8-11.6)
[2016-10-18 22:56] LABS: ALKALINE PHOSPHATASE 88 U/L (45-117); ALT (GPT) 42 U/L (10-53); ANION GAP 15 MEQ/L (5-15); AST (GOT) 83 U/L (15-37); BICARBONATE 19.1 MEQ/L (21.0-32.0); BLOOD UREA NITROGEN 18 MG/DL (7-18); CHLORIDE 108 MEQ/L (98-107); CREATINE KINASE 707 U/L (26-192); GLOMERULAR FILTRATION RATE 40 ML/MIN (>89); POTASSIUM 3.4 MEQ/L (3.5-5.1); SODIUM (NA) 142 MEQ/L (136-145); TOTAL BILIRUBIN ADULT 0.7 MG/DL (0.2-1.0)
[2016-10-18 23:05] LABS: BLOOD GAS VENOUS BASE EXCESS -8.5 mmol/L (-2-2); BLOOD GAS VENOUS HCO3 17 mmol/L (22-26); BLOOD GAS VENOUS O2 CONTENT 14.9 Vol % (9.0-17.0); BLOOD GAS VENOUS O2 HGB SAT 63 % (70-76); BLOOD GAS VENOUS PCO2 40 mmHg (44-48); BLOOD GAS VENOUS PO2 41 mmHg (35-40); BLOOD GAS VENOUS pH 7.26 (7.360-7.400); CRITICAL VALUE YES; OXYGEN DEVICE VENTILATOR; TEMP CORR TO 98.6
[2016-10-18 23:06] LABS: DRAW SITE CENTRAL LINE; FIO2 40 %; STAT NO; VENT SETTINGS PRVC/AC/500/
[2016-10-18 23:12] LABS: CKMB 25.5 NG/ML (0.5-3.6)
[2016-10-18] MEDS ORDERED: ROCURONIUM INJ 50 MG/5 ML VIAL IV ONE (23:15)
[2016-10-18] MEDS ORDERED: POTASSIUM CHLOR 20 MEQ PREMIX 100 ML IV ONE (23:15)
[2016-10-18] MEDS ORDERED: SODIUM BICARBONATE 8.4% INJ 50 ML ONE (23:22)
[2016-10-18] MEDS ORDERED: SODIUM BICARBONATE 8.4% INJ 50 MEQ/50 ML SYR ONE (23:22)
--- NOTE | 2016-10-18 23:26 | RADRPT ---
EXAM DATE/TIME: 10/18/2016 23:06 [facility] COMPARISON: CHEST SINGLE AP, October 18, 2016, 9:43. INDICATIONS : Pleasse evaluate for central line placement. MEDICAL HISTORY : None. SURGICAL HISTORY : None. ENCOUNTER: Initial ACUITY: 1 day PAIN SCORE: Non-responsive. LOCATION: Bilateral chest FINDINGS: 2 portable frontal views of the chest show a left-sided central line. Tip at the cavoatrial junction. No pneumothorax. Endotracheal tube tip is approximately 3 cm proximal to the da. Nasogastric tub e is coiled within the fundus of the stomach. Tiny bilateral pleural effusions. No discrete infiltrat es. Heart is normal in size. CONCLUSION: 1. Lines and tubes as detailed above without pneumothorax. 2. Tiny bilateral pleural effusions. Sandoval Purvis Jr., MD on October 18, 2016 at 23:23 Board Certified Radiologist. This report was verified electronically.
[2016-10-18] MEDS: LACTATED RINGER'S 1000 ML INJ 1,000 ML IV SCH (23:35)
[2016-10-18] MEDS ORDERED: SODIUM CHLORID 0.9% 500 ML INJ 500 ML IV ONE (23:45)
[2016-10-18] MEDS ORDERED: SODIUM BICARBONATE 8.4% INJ 50 MEQ/50 ML SYR IV PUSH ONE (23:45)
[2016-10-19] VITALS (20 sets, daily range): BP systolic 72–174; BP diastolic 50–98; PULSE 89–135; RESP 16–32; TEMP 96–98.8; O2SAT 98–100
--- NOTE | 2016-10-19 00:58 | PD.PROCEDR ---
Procedure Note Procedure DATE: 10/18/16 around 9:30PM CENTRAL LINE PLACEMENT: Left internal jugular vein. Ultrasound-guided INDICATION: Central venous access CONSENT Residual was done emergently as patient had no measurable cuff blood pressure and very poor perfusion and was in need of emergent IV access. DESCRIPTION OF THE PROCEDURE The patient was placed in supine position, Trendelenburg. The skin was cleansed with Chloraprep 3. Additional barrier precautions included large sterile drape, sterile gloves, sterile gown, face mask, and hat. 1 % lidocaine was used for local anesthesia. Under direct ultrasound guidance and on single attempt, the vein was accessed with an introducer needle. The guide wire was advanced and the tract was dilated. Using Seldinger technique a 7 German 20 cm antimicrobial coated triple-lumen catheter was advanced to a depth of 18 centimeters. The guide wire was removed. All ports had good return of dark venous blood and flushed easily with saline. The central line was secured with 2.0 silk. A sterile dressing with antibiotic disc was applied. ESTIMATED BLOOD LOSS: Minimal COMPLICATIONS: No apparent complications. STAT chest x-ray demonstrates as Dr. central venous line position without apparent complication. Thalia Ng MD Oct 19, 2016 00:58
--- NOTE | 2016-10-19 01:18 | PD.PROCEDR ---
Procedure Note Procedure DATE: 10/18/16 PROCEDURE: Left femoral arterial catheter placement INDICATION: Shock DETAILS OF PROCEDURE The patient was placed in supine position. The skin was cleansed with Chloraprep. Additional barrier precautions included large sterile drape, sterile gloves, sterile gown, face mask, and hat. 1% lidocaine was used for local anesthesia. Under direct ultrasound guidance and on the first attempt, the artery was accessed with an introducer needle. The guide wire was advanced. Using Seldinger technique 16 gauge arterial catheter was placed. The guide wire was removed. The catheter was connected to a transducer line and flushed with saline. The video monitor displayed normal arterial wave forms. The catheter was secured with 2-0 silk. A sterile dressing with antibiotic disc was applied. ESTIMATED BLOOD LOSS: minimal COMPLICATIONS: None Thalia Ng MD Oct 19, 2016 01:18
[2016-10-19] MEDS ORDERED: NITROGLYCERIN 2% OINT 1 GM PACKET TOPICAL SCH (02:30)
[2016-10-19] MEDS: CHLORHEXIDINE GLUCONATE 2 % 1 PACK (2 CLOTHS) TOP SCH (04:00)
[2016-10-19] MEDS: RESP: ALBUTEROL 2.5 MG/IPRATROPIUM 0.5 MG NEB (SCH) INH ×4 (04:15→22:15)
[2016-10-19 04:33] LABS: HEMATOCRIT 43.1 % (35.0-46.0); MEAN CELL VOLUME 98.2 FL (80.0-100.0); MEAN CORPUSCULAR HEMOGLOBIN 32.8 PG (27.0-34.0); MEAN CORPUSCULAR HGB CONC 33.4 % (32.0-36.0); PLATELET COUNT 357 TH/MM3 (150-450); RED BLOOD COUNT 4.39 MIL/MM3 (4.00-5.30); RED CELL DISTRIBUTION WIDTH 13.5 % (11.6-17.2); REVIEW FLAG FINAL; WHITE BLOOD COUNT 18.3 TH/MM3 (4.0-11.0)
[2016-10-19] MEDS ORDERED: SODIUM CHLOR 0.9% 250 ML INJ 250 ML IV ONE ×2 (04:45→05:45)
--- NOTE | 2016-10-19 04:53 | HHI.CCPN ---
Subjective Remarks/Hospital Course Called to patients bedside due to diaphoresis, oliguria with urine output less than 15 mL per hour for last 2 hours. (previously recorded 750 for last shift, hourly urine output before 2 hours ago unknown). She was tachypneic on mechanical ventilation with respiratory rate in the 30s and was profoundly diaphoretic, peripherally cool. Was able to palpate a pulse but unable to obtain blood pressure measurement. Emergently placed left central venous line bolused NS 250 mL IV and started levophed at 5 mcg/m and SBP was in 130s. Place left femoral art line and placed on Gamal Trac monitoring and CVP monitoring. Bedside cardiac ultrasound demonstrated LV dysfunction but RV appeared dynamic with inadequate filling. No significant pericardial effusion. EKG with anterior lateral ST elevation as seen previously and T wave inversions. CVP 6, CI 2.7 SVV 20, poor skin turgor, dry mucous membranes, collapsible IJ pointed towards volume responsiveness despite elevated BNP and diagnosis of UT. She responded to initial NS 250 bolus at which point levophed was weaned completely off. Started on gentle fluids with LR 100 ml/hr and UOP subsequently 50 ml/hr. CBC demonstrates stable hgb without evidence of bleeding. Being managed conservatively for subacute STEMI with ASA/heparin drip. Troponin increased, CK fraction remains normal. Objective Vital Signs Date Time Temp Pulse Resp B/P Pulse Ox O2 Delivery O2 Flow Rate FiO2 10/19/16 04:15 99 40 10/19/16 04:00 97 10/18/16 11:46 19 10/18/16 10:39 Ventilator 10/18/16 09:28 97.6 Result Diagram: 10/19/16 0410 10/18/16 9416 Other Results Laboratory Tests Test 10/18/16 10/18/16 10:30 22:55 Blood Gas Puncture Site RT RADIAL CENTRAL LINE Blood Gas Patient Temperature 98.6 98.6 Blood Gas HCO3 18 mmol/L (22-26) Blood Gas Base Excess -7.4 mmol/L (-2-2) Blood Gas Oxygen Saturation 96 % (90-100) Arterial Blood pH 7.32 (7.380-7.420) Arterial Blood Partial 35 mmHg (38-42) Pressure CO2 Arterial Blood Partial 250 mmHG Pressure O2 (61-120) Arterial Blood Oxygen Content 22.3 Vol % (12.0-20.0) Arterial Blood 1.8 % (0-4) Carboxyhemoglobin Arterial Blood Methemoglobin 1.9 % (0-2) Blood Gas Hemoglobin 16.2 G/DL (12.0-16.0) Oxygen Delivery Device VENTILATOR VENTILATOR Blood Gas Ventilator Setting AC14/500/PEEP5 PRVC/AC/500/ Blood Gas Inspired Oxygen 50 % 40 % Venous Blood pH 7.26 (7.360-7.400) Venous Blood Partial Pressure 40 mmHg (44-48) CO2 Venous Blood Partial Pressure 41 mmHg (35-40) O2 Venous Blood HCO3 17 mmol/L (22-26) Venous Blood Oxygen Saturation 63 % (70-76) Venous Blood Oxygen Content 14.9 Vol % (9.0-17.0) Venous Blood Base Excess -8.5 mmol/L (-2-2) Thalia Ng MD Oct 19, 2016 04:53 HEENT: Normocephalic. Atraumatic. Pupils 3-4 mm, minimally reactive, equal, conjugate. Mucous membranes are moist NECK: Trachea is midline. There is no JVD. Orotracheally intubated CHEST: Equal chest rise. Clear to auscultation. CARDIOVASCULAR: Normal rate, regular rhythm. S1 and S2 without appreciable murmurs. ABDOMEN: Common nontender, nondistended. No guarding. MUSCULOSKELETAL: No peripheral edema. Distal pulses 2+. NEUROLOGICAL: RASS -3. CAM +. GCS 6 (E1V1M4). Moves all extremity spontaneously. Does not follow commands. Does not withdraw to pain. Does not open eyes to painful stimuli. A/P Assessment and Plan Assessment: This is a 61-year-old female with an unknown past medical history who was found down for an unknown period of time. Per report, both EMS and the ER, she has remained hemodynamically stable throughout her time. There is no evidence that she had any prior ACLS or cardiac event. I had a long conversation with Dr. Cruz, on-call childrens club attendant. We both agreed that given the unknown clinical course, the atypical EKG findings, the echo which is equivocal, and a normal MB ratio, the risk-benefit ratio of left heart catheterization emergently probably weighs in favor of conservative measures and against emergent catheterization. For her altered mental status, certainly metabolic causes such as sepsis or hepatic dysfunction should be considered. From an infectious etiology, viral or bacterial meningitis could also be a cause , however, given that we are treating her conservatively for possible acute coronary syndrome, I do not think that the risk-benefit ratio of a diagnostic lumbar puncture is warranted at this time while she is on therapeutic heparin for her acute coronary syndrome. If this is still a diagnostic possibility after we have investigated her acute coronary syndrome, we will pursue lumbar puncture at that time. We will also attempt to obtain any health records from the patient. For now, she remains very critically ill. Active problems: Acute coronary syndrome Acute encephalopathyunknown type Acute hypoxic and hypercarbic respiratory failure Plan: Admit to the ICU Trend troponins every 6 --heparin infusion for ACS, goal PTT 60 - 80 Goal heart rate less than 90 Continue heparin infusion for possible acute coronary syndrome Cardiology following Every hour neuro checks Portable EEG Propofol as needed for vent synchrony and sedation. Goal RASS -1 We will hold long-acting sedating meds Mckay culture including blood, urine, sputum Continue vancomycin with pharmacy dosing We will switch from Zosyn to Rocephin 2 g IV every 12 for meningitic empiric coverage We will add Flagyl to cover anaerobes in the setting of probable aspiration Daily CBC, BMP check ammonia level We will give her an aspirin now and start 325 mg daily Nothing by mouth for now Strict I's and O's with Garces catheter placement for accurate monitoring SCDs for DVT prophylaxis, Protonix for GI prophylaxis. She remains critically ill. This patient remains critically ill with one or more organ systems which are or may become a threat to life. I have spent in excess of 50 minutes discontinuously in the care and management of this patient. This time is exclusive of procedures, and includes, but is not limited to, evaluation of the patient, review of the medical record, discussions with family, consultants, nursing staff, or respiratory therapy, and documentation in the medical record. Thalia gN MD Oct 19, 2016 04:53
[2016-10-19] MEDS: metroNIDAZOLE 500 MG INJ 100 ML IV SCH ×4 (04:57→23:05)
[2016-10-19 05:05] LABS: APTT (PATIENT) 123.2 SEC (24.3-30.1)
[2016-10-19 05:12] LABS: CKMB 28.1 NG/ML (0.5-3.6)
[2016-10-19 05:23] LABS: BICARBONATE 19.5 MEQ/L (21.0-32.0); POTASSIUM 3.6 MEQ/L (3.5-5.1)
[2016-10-19] MEDS: INSULIN NovoLIN REGULAR SUPPLEMENTAL SCALE SQ SCH ×4 (05:25→17:54)
[2016-10-19] MEDS: PROPOFOL 1000 MG/100 ML INJ 100 ML IV SCH (05:40)
[2016-10-19] MEDS: cefTRIAXone INJ 2,000 MG in SODIUM CHLORIDE 0.9% INJ 100 ML IV SCH ×2 (05:41→20:07)
--- NOTE | 2016-10-19 06:59 | RADRPT ---
EXAM DATE/TIME: 10/19/2016 05:22 [facility] COMPARISON: CHEST SINGLE AP, October 18, 2016, 23:06. INDICATIONS : Respiratory failure. MEDICAL HISTORY : None. SURGICAL HISTORY : None. ENCOUNTER: Subsequent ACUITY: 2 days PAIN SCORE: Non-responsive. LOCATION: Bilateral chest FINDINGS: A single portable frontal view of the chest omits the left costophrenic angle. Endotracheal tube tip is 3 cm from the da. Left-sided central line in good position. Nasogastric tube courses off the i nferior portion of the film. No pneumothorax. Patchy consolidation within the left lung base is new. A tiny right effusion. Left effusion cannot be assessed. Heart is normal in size. CONCLUSION: 1. Lines and tubes. 2. No infiltrate left lower lobe. 3. Tiny effusions. Sandoval Purvis Jr., MD on October 19, 2016 at 6:55 Board Certified Radiologist. This report was verified electronically.
[2016-10-19] MEDS: CHLORHEXIDINE 0.12% (ORAL KIT) 15 ML CUP MT SCH ×2 (08:15→20:26)
[2016-10-19 08:41] LABS: APTT (PATIENT) 54.1 SEC (24.3-30.1)
[2016-10-19] MEDS: SODIUM CHLORIDE 0.9% FLUSH 5 ML FLUSH IV FLUSH SCH ×2 (08:41→20:24)
[2016-10-19] MEDS: DOCUSATE SODIUM 50 MG/SENNA 8.6 MG TAB PO SCH ×2 (08:46→20:23)
[2016-10-19] MEDS: POLYETHYLENE GLYCOL 17 GM PKG PO SCH ×2 (08:46→20:23)
[2016-10-19] MEDS ORDERED: PANTOPRAZOLE SODIUM 40 MG VIAL IV SCH (09:00)
[2016-10-19] MEDS ORDERED: ASPIRIN 325 MG TAB PO SCH (09:00)
[2016-10-19] MEDS ORDERED: LORazepam 2 MG/ML VIAL ONE (11:29)
[2016-10-19 11:51] LABS: CKMB 21.2 NG/ML (0.5-3.6)
[2016-10-19] MEDS ORDERED: levETIRAcetam 1000 MG INJ 100 ML IV ONE (12:00)
[2016-10-19] MEDS ORDERED: LORazepam 2 MG/ML VIAL IV ONE (12:00)
[2016-10-19] MEDS ORDERED: METOPROLOL TARTRATE 5 MG/5 ML VIAL ONE (12:01)
[2016-10-19] MEDS: VANCOMYCIN 1,000 MG/NS 250 ML IV SCH ×2 (12:09)
--- NOTE | 2016-10-19 12:37 | HHI.CCPN ---
Subjective Remarks/Hospital Course Hospital Course: This is a 61-year-old female with an unknown past medical history who was found down and unresponsive by a friend this morning. We do not know when she was last seen normal. We do not know anything about her past medical history. Per EMS, her vital signs were stable. Initially she was a GCS of 3 on scene. Narcan did not improve her mental status. There are significant dried emesis around her mouth. She was brought in by EMS and was intubated. In the emergency department, it was noted that the patient had significant ST elevations in lead V2 through V4. Cardiology was stat consulted. A stat echo was performed. Her labs are remarkable for a troponin of almost 5, but a normal MB ratio. A white count of 19,000. The patient is intubated and obtunded, and unable to provide any history. Critical care medicines were consulted to evaluate and manage her altered mental status, her possible acute coronary syndrome. 1:2: Called to patients bedside due to diaphoresis, oliguria with urine output less than 15 mL per hour for last 2 hours. (previously recorded 750 for last shift, hourly urine output before 2 hours ago unknown). She was tachypneic on mechanical ventilation with respiratory rate in the 30s and was profoundly diaphoretic, peripherally cool. Was able to palpate a pulse but unable to obtain blood pressure measurement. Emergently placed left central venous line bolused NS 250 mL IV and started levophed at 5 mcg/m and SBP was in 130s. Place left femoral art line and placed on Gamal Trac monitoring and CVP monitoring. Bedside cardiac ultrasound demonstrated LV dysfunction but RV appeared dynamic with inadequate filling. No significant pericardial effusion. EKG with anterior lateral ST elevation as seen previously and T wave inversions. CVP 6, CI 2.7 SVV 20, poor skin turgor, dry mucous membranes, collapsible IJ pointed towards volume responsiveness despite elevated BNP and diagnosis of CT. She responded to initial NS 250 bolus at which point levophed was weaned completely off. Started on gentle fluids with LR 100 ml/hr and UOP subsequently 50 ml/hr. CBC demonstrates stable hgb without evidence of bleeding. Being managed conservatively for subacute STEMI with ASA/heparin drip. Troponin increased, CK fraction remains normal. Subjective: 1/2: worsening instability overnight, but clinically appears to be volume responsive. troponins uptrending. still persistently GCS 6 and significantly encephalopathic. battery technician at bedside for portable EEG, prelim possible ictal activity. Objective Vital Signs Date Time Temp Pulse Resp B/P Pulse Ox O2 Delivery O2 Flow Rate FiO2 10/19/16 08:00 110 10/19/16 08:00 40 10/19/16 07:43 99 10/19/16 05:00 97.0 10/19/16 04:00 10/18/16 11:46 19 10/18/16 10:39 Ventilator Result Diagram: 10/19/16 0410 10/19/16 0410 Other Results Laboratory Tests Test 10/18/16 22:55 Blood Gas Puncture Site CENTRAL LINE Blood Gas Patient Temperature 98.6 Venous Blood pH 7.26 (7.360-7.400) Venous Blood Partial Pressure 40 mmHg (44-48) CO2 Venous Blood Partial Pressure 41 mmHg (35-40) O2 Venous Blood HCO3 17 mmol/L (22-26) Venous Blood Oxygen Saturation 63 % (70-76) Venous Blood Oxygen Content 14.9 Vol % (9.0-17.0) Venous Blood Base Excess -8.5 mmol/L (-2-2) Oxygen Delivery Device VENTILATOR Blood Gas Ventilator Setting PRVC/AC/500/ Blood Gas Inspired Oxygen 40 % Objective Remarks GENERAL: Middle-aged female, appears older than stated age, intubated, sedated, critically ill. HEENT: Normocephalic. Atraumatic. Pupils 3-4 mm, minimally reactive, equal, conjugate. Mucous membranes are moist NECK: Trachea is midline. There is no JVD. Orotracheally intubated CHEST: Equal chest rise. Clear to auscultation. CARDIOVASCULAR: Normal rate, regular rhythm. S1 and S2 without appreciable murmurs. ABDOMEN: Common nontender, nondistended. No guarding. MUSCULOSKELETAL: No peripheral edema. Distal pulses 2+. NEUROLOGICAL: RASS -3. CAM +. GCS 6 ([id number]). Moves all extremity spontaneously. Does not follow commands. Does not withdraw to pain. Does not open eyes to painful stimuli. A/P Assessment and Plan Assessment: This is a 61-year-old female with a reported history in the medical record of alcoholic cirrhosis, hypothyroidism, chronic morphine use who was found down for an unknown period of time. Her course has been complicated by acute coronary syndrome and myocardial infarction and now persistent encephalopathy. Certainly, with these preliminary possible ictal findings on EEG , status epilepticus could be a cause of her encephalopathy. I will consult neurology and additionally give her ativan 2mg iv x 1 now and keppra 1gm iv x 1 now. We will continue frequent neuro checks. I will discuss with cardiology: I do think she needs a left heart catheterizaiton at some point, but now given possible ongoing active seizures, I think it may be prudent to hold off until she is more stable. From a hemodynamic standpoint, she is still volume responsive, and I think we should continue gentle ivf hydration as long as it continues to improve hemodynamics. Per Dr. Ng' repeat bedside echocardiogram , RV function still remains preserved and hyperdynamic, and she responds to a straight-leg raise, so I think it is safe to continue fluid resuscitation. For now, she remains very critically ill. Active problems: Possible seizures Chronic opiate use Acute coronary syndrome Acute encephalopathyunknown type Alcoholic Cirrhosis Acute hypoxic and hypercarbic respiratory failure Plan: --q1h neuro checks --ativan 2mg iv x1 now and prn for any witnessed seizure activity --keppra 1gm iv x 1 now. then keppra 500mg iv q12h -- neurology consult for possible seizures and altered mental status --will work towards obtaining MRI brain. this may not be possible if we cannot determine if she is safe to undergo MRI. -- will f/u formal EEG results. -- RASS goal 0. -- propofol and fentanyl as needed for goal RASS. -- hold long-acting sedating meds. Trend troponins every 6 --ASA 325mg daily --heparin infusion for ACS, goal PTT 60 - 80 Goal heart rate less than 90 Cardiology following --C when more stable, will continue to discuss with cardiology --500cc LR bolus for fluid responsive hypotension --continue LR @ 125cc/hr mivf. --Vent bundle --low tidal volume ventilation targeting 6cc/kg IBW --wean fio2 for goal Spo2 > 90% --does not meet SBT criteria today given encephalopathy. --nebs q6h and q2n prn --HOB at 30deg --place OG tube and start TF --BMP daily --nutrition consult --thiamine 100mg iv daily --ammonia 35. unlikely to be the cause of her encephalopathy blood, sputum, urine cultures 10/18: pending. Continue vancomycin with pharmacy dosing Rocephin 2 g IV every 12 for meningitic empiric coverage Flagyl to cover anaerobes in the setting of probable aspiration Daily CBC, BMP Strict I's and O's with Garces catheter placement for accurate monitoring SCDs for DVT prophylaxis, Protonix for GI prophylaxis. She remains critically ill. This patient remains critically ill with one or more organ systems which are or may become a threat to life. I have spent in excess of 44 minutes discontinuously in the care and management of this patient. This time is exclusive of procedures, and includes, but is not limited to, evaluation of the patient, review of the medical record, discussions with family, consultants, nursing staff, or respiratory therapy, and documentation in the medical record. Edgardo Thakur MD Oct 19, 2016 12:37
--- NOTE | 2016-10-19 14:29 | PD.CARD.PN ---
Subjective Subjective Remarks sedated on vent Objective Medications Current Medications Medications (Trade) Dose Ordered Sig/Renita Route Start Time Stop Time Status Last Admin (Heparin Inj) 5,000 units UNSCH PRN IV 10/18/16 16:45 Heparin Sodium (Porcine) 2500 units 2,500 units UNSCH PRN IV 10/18/16 16:45 (Heparin-D5W Inj) 250 ml @ 0 mls/hr TITRATE IV 10/18/16 10:45 10/18/16 12:26 Magnesium Oxide 800 mg 800 mg UNSCH PRN PO 10/18/16 11:00 Magnesium Sulfate 4 gm/Sodium Chloride 100 ml @ 50 mls/hr UNSCH PRN IV 10/18/16 11:00 Magnesium Sulfate 2 gm/Sodium Chloride 100 ml @ 50 mls/hr UNSCH PRN IV 10/18/16 11:00 Potassium Chloride 100 ml @ 50 mls/hr Q2H PRN IV 10/18/16 11:00 Potassium Chloride 100 ml @ 50 mls/hr Q2H PRN IV 10/18/16 11:00 Potassium Chloride 100 ml @ 50 mls/hr Q2H PRN IV 10/18/16 11:00 (KCl 40 Meq Premix Inj) 100 ml @ 25 mls/hr UNSCH PRN IV 10/18/16 11:00 (KCl 40 Meq/30 ml Liq) 40 meq UNSCH PRN PO/TUBE 10/18/16 11:00 (KCl 40 Meq/30 ml Liq) 40 meq UNSCH PRN PO/TUBE 10/18/16 11:00 (K-Phos) 2,000 mg Q4H PRN PO 10/18/16 11:00 Potassium Phosphate 2000 mg 2,000 mg UNSCH PRN PO/TUBE 10/18/16 11:00 Potassium Phosphate 30 mmol/ Sodium Chloride 260 ml @ 42 mls/hr UNSCH PRN IV 10/18/16 11:00 (Sodium Phosphate Inj/NS 250 ml Inj) 250 ml @ 42 mls/hr UNSCH PRN IV 10/18/16 11:00 (D50w (Vial) Inj) 25 ml UNSCH PRN IV PUSH 10/18/16 11:00 Insulin Human Regular 1 1 Q6HR SQ 10/18/16 12:00 (Diprivan 1000 Mg/100ml Inj) 100 ml @ 0 mls/hr TITRATE IV 10/18/16 11:00 10/19/16 05:40 (NS Flush) 2 ml UNSCH PRN IV FLUSH 10/18/16 11:00 (NS Flush) 2 ml BID IV FLUSH 10/18/16 21:00 10/19/16 08:41 (Protonix Inj) 40 mg DAILY IV 10/19/16 09:00 10/19/16 08:46 (Zofran Inj) 4 mg Q6H PRN IV 10/18/16 11:00 (Litzy-Colace) 2 tab BID PO 10/18/16 21:00 10/19/16 08:46 Miscellaneous Information 1 Q361D XX 10/18/16 11:00 (Chlorhexidine 2% Cloth) 3 pack Taper DAILY@04 TOP 10/19/16 04:00 10/15/17 03:59 10/19/16 04:00 (Chlorhexidine 2% Cloth) 3 pack UNSCH PRN TOP 10/18/16 11:00 (Peridex 0.12% Liq) 15 ml BID@08,20 MT 10/18/16 20:00 10/19/16 08:15 Polyethylene Glycol 17 gm 17 gm BID PO 10/18/16 21:00 10/19/16 08:46 Pharmacy Profile Note 0 ml @ 0 mls/hr UNSCH OTHER 10/18/16 15:15 Ceftriaxone Sodium 2000 mg/ Sodium Chloride 100 ml @ 200 mls/hr Q12H IV 10/18/16 17:00 10/19/16 05:41 (Flagyl 500 Mg Inj) 100 ml @ 100 mls/hr Q6H IV 10/18/16 16:00 10/19/16 10:09 Aspirin 325 mg 325 mg DAILY PO 10/19/16 09:00 10/19/16 08:46 (Vancomycin Inj/ NS 250 ml Inj) 250 ml @ 250 mls/hr Q24H IV 10/19/16 11:00 10/19/16 12:09 Miscellaneous Information SPECIFIC LAB TO BE DRAWN:VANCO TROUGH DATE... ONCE ONCE XX 10/21/16 10:45 10/21/16 10:46 (Levophed-Dextrose Drip) 250 ml @ 0 mls/hr TITRATE IV 10/18/16 21:15 10/19/16 05:53 Terbutaline Sulfate 1 mg 1 mg UNSCH PRN SQ 10/18/16 21:15 Fentanyl Citrate 250 ml @ 0 mls/hr TITRATE IV 10/18/16 21:30 Lactated Ringer's 1,000 ml @ 125 mls/hr Q8H IV 10/18/16 23:30 10/18/16 23:35 (Keppra 500 Mg Premix Inj) 100 ml @ 400 mls/hr Q12H IV 10/20/16 00:00 Vital Signs / I&O Vital Signs Date Time Temp Pulse Resp B/P Pulse Ox O2 Delivery O2 Flow Rate FiO2 10/19/16 12:15 99 40 10/19/16 08:00 110 10/19/16 08:00 40 10/19/16 07:43 99 40 10/19/16 05:13 40 10/19/16 05:00 97.0 10/19/16 04:15 99 40 10/19/16 04:00 96.0 10/19/16 04:00 97 10/19/16 03:00 95 10/19/16 03:00 95 112/80 146/72 10/19/16 02:00 93 126/80 147/76 10/19/16 01:40 98 40 10/19/16 01:13 40 10/19/16 01:00 89 129/86 160/75 10/19/16 00:00 95 139/98 174/85 10/18/16 23:30 40 10/18/16 23:12 99 40 10/18/16 23:01 101 10/18/16 23:00 101 10/18/16 23:00 100 113/87 145/75 10/18/16 22:19 99 40 10/18/16 21:30 103 125/96 10/18/16 20:05 98 40 10/18/16 19:30 40 10/18/16 19:30 107 10/18/16 16:00 106 10/18/16 15:40 98 40 I/O 10/18/16 10/18/16 10/18/16 10/19/16 10/19/16 10/19/16 07:00 15:00 23:00 07:00 15:00 23:00 Intake Total 1794 ml Output Total 446 ml Balance 1348 ml Intake Oral 0 ml IV Total 1794 ml Output Urine Total 346 ml Gastric Drainage Total 100 ml # Bowel Movements 0 Physical Exam GENERAL: Well developed, well nourished. No acute distress. HEENT: Jugular venous pressure is normal. CHEST: Lungs decreased and clear to auscultation bilaterally. Unlabored respiratory effort. CARDIAC: Regular rate and rhythm without S3, S4, or murmur. ABDOMEN: Soft, nontender, no hepatosplenomegaly. Bowel sounds present. EXTREMITIES: No clubbing, cyanosis, or edema. Laboratory Laboratory Tests Test 10/18/16 10/18/16 10/18/16 10/18/16 15:00 15:10 19:18 21:56 Urine Opiates Screen NEG Urine Barbiturates Screen NEG Urine Amphetamines Screen NEG Urine Benzodiazepines Screen POS Urine Cocaine Screen NEG Urine Cannabinoids Screen NEG Total Creatine Kinase 889 U/L 707 U/L Creatine Kinase MB 22.1 NG/ML 25.5 NG/ML Creatine Kinase MB % 2.5 % 3.6 % Troponin I 5.52 NG/ML 9.08 NG/ML Activated Partial 54.7 SEC 75.2 SEC Thromboplast Time Lactic Acid Level 3.2 mmol/L 2.6 mmol/L Ammonia 35 MCMOL/L Free Thyroxine 1.26 NG/DL White Blood Count 18.8 TH/MM3 Red Blood Count 4.99 MIL/MM3 Hemoglobin 16.3 GM/DL Hematocrit 48.3 % Mean Corpuscular Volume 96.8 FL Mean Corpuscular Hemoglobin 32.7 PG Mean Corpuscular Hemoglobin 33.8 % Concent Red Cell Distribution Width 13.5 % Platelet Count 465 TH/MM3 Mean Platelet Volume 7.9 FL Neutrophils (%) (Auto) 87.7 % Lymphocytes (%) (Auto) 6.6 % Monocytes (%) (Auto) 5.3 % Eosinophils (%) (Auto) 0.1 % Basophils (%) (Auto) 0.3 % Neutrophils # (Auto) 16.5 TH/MM3 Lymphocytes # (Auto) 1.2 TH/MM3 Monocytes # (Auto) 1.0 TH/MM3 Eosinophils # (Auto) 0.0 TH/MM3 Basophils # (Auto) 0.1 TH/MM3 CBC Comment DIFF FINAL Differential Comment Prothrombin Time 12.4 SEC Prothromb Time International 1.1 RATIO Ratio Sodium Level 142 MEQ/L Potassium Level 3.4 MEQ/L Chloride Level 108 MEQ/L Carbon Dioxide Level 19.1 MEQ/L Anion Gap 15 MEQ/L Blood Urea Nitrogen 18 MG/DL Creatinine 1.36 MG/DL Estimat Glomerular Filtration 40 ML/MIN Rate Random Glucose 127 MG/DL Calcium Level 8.8 MG/DL Total Bilirubin 0.7 MG/DL Aspartate Amino Transf 83 U/L (AST/SGOT) Alanine Aminotransferase 42 U/L (ALT/SGPT) Alkaline Phosphatase 88 U/L Total Protein 6.5 GM/DL Albumin 3.2 GM/DL B-Type Natriuretic Peptide 1551 PG/ML Test 10/18/16 10/19/16 10/19/16 10/19/16 22:55 04:10 08:00 10:26 Blood Gas Puncture Site CENTRAL LINE Blood Gas Patient Temperature 98.6 Venous Blood pH 7.26 Venous Blood Partial Pressure 40 mmHg CO2 Venous Blood Partial Pressure 41 mmHg O2 Venous Blood HCO3 17 mmol/L Venous Blood Oxygen Saturation 63 % Venous Blood Oxygen Content 14.9 Vol % Venous Blood Base Excess -8.5 mmol/L Oxygen Delivery Device VENTILATOR Blood Gas Ventilator Setting PRVC/AC/500/ Blood Gas Inspired Oxygen 40 % White Blood Count 18.3 TH/MM3 Red Blood Count 4.39 MIL/MM3 Hemoglobin 14.4 GM/DL Hematocrit 43.1 % Mean Corpuscular Volume 98.2 FL Mean Corpuscular Hemoglobin 32.8 PG Mean Corpuscular Hemoglobin 33.4 % Concent Red Cell Distribution Width 13.5 % Platelet Count 357 TH/MM3 Mean Platelet Volume 7.7 FL Activated Partial 123.2 SEC 54.1 SEC Thromboplast Time Sodium Level 146 MEQ/L Potassium Level 3.6 MEQ/L Chloride Level 111 MEQ/L Carbon Dioxide Level 19.5 MEQ/L Anion Gap 16 MEQ/L Blood Urea Nitrogen 17 MG/DL Creatinine 1.07 MG/DL Estimat Glomerular Filtration 52 ML/MIN Rate Random Glucose 135 MG/DL Lactic Acid Level 3.0 mmol/L Calcium Level 7.9 MG/DL Total Creatine Kinase 496 U/L 310 U/L Creatine Kinase MB 28.1 NG/ML 21.2 NG/ML Creatine Kinase MB % 5.7 % 6.8 % Troponin I 6.51 NG/ML 6.10 NG/ML Imaging Last 72 hours Impressions Aorta CTA 10/18/16 0945 Signed Impressions: Service Date/Time: Tuesday, October 18, 2016 10:08 - CONCLUSION: 1. No evidence for aortic dissection. 2. Tree in bud infiltrate left lower lobe. Evangelist Hurley MD Head CT 10/18/16 0940 Signed Impressions: Service Date/Time: Tuesday, October 18, 2016 10:00 - CONCLUSION: Normal examination. Evangelist Hurley MD Chest X-Ray 10/18/16 0940 Signed Impressions: Service Date/Time: Tuesday, October 18, 2016 09:43 - CONCLUSION: Clear lungs. Evangelist Hurley MD Chest X-Ray 10/18/16 0000 Signed Impressions: Service Date/Time: Tuesday, October 18, 2016 23:06 - CONCLUSION: 1. Lines and tubes as detailed above without pneumothorax. 2. Tiny bilateral pleural effusions. Sandoval Purvis Jr., MD Assessment and Plan Assessment and Plan NSTEMI- continue conservative measure - still not clear if primary or secondary DE, though negative CK MB% suggests not cardiac Cardiomyopathy- global HK with EF 40-45% - add metoprolol and lisinopril Resp Failure on vent AMS- Renal Insufficiency- Cait Cruz MD Oct 19, 2016 14:29
[2016-10-19] MEDS ORDERED: PILL SPLITTER OTHER PRN (14:45)
[2016-10-19] MEDS ORDERED: LISINOPRIL 5 MG TAB PO SCH (15:00)
--- NOTE | 2016-10-19 15:09 | PD.CONS ---
Consult Service Palliative Care . Consult Requested By Dr. Thakur . Primary Care Physician Unknown . Reason for Consultation a. To assist with evaluation and management of symptoms including: pain, dyspnea b. To assist medical decision maker(s) with: better understanding of current medical conditions; weighing benefits/burdens of medical treatment options; making medical treatment decisions. . HPI History of Present Illness Ms. Stanton is a 61-year-old female who presented to [facility] ED in [place] on 10/18/16 for evaluation of altered mental status. Patient was found unresponsive in her home by a friend who called EMS. It was unknown when she was last seen normal. Per EMS, the patient's vital signs were stable, GCS of 3 on scene. There was significant dried emesis around the patient's mouth and in her hair. Narcan was administered without neurological improvement. Patient was emergently intubated. Additional findings while in the ED include: * Vital signs: Pulse 125, respirations 24, BP 180/90, rectal temperature 97.6 * WBC: 19.6, hemoglobin 16.6, hematocrit 49.2, platelets 502, neutrophils 87.5% * Sodium: 131, potassium 4.4, chloride 105, glucose 142 * BUN: 13, creatinine 1.3 * Total bilirubin: 0.6, direct bilirubin 0.1, indirect bilirubin 0.5, AST 49, ALT 35, alkaline phosphatase 101 * Total creatine kinase: 397 * CK-MB: 13.9 * CK-MB%: 3.5 * Troponin: 4.80 * BNP: 340 * Total protein: 7.6, albumin 3.9 * Lipase: 145 * PT: 11.1, INR 1.0, APTT 26.6 * Toxicology: ethyl alcohol <3, + benzodiazepines * Urinalysis: Positive for occult blood, bacteria and mucus. * Urine culture: Pending. * Chest x-ray: Tiny bilateral pleural effusions * EKG: Sinus rhythm with ST elevations in leads V2, V3, V4. No reciprocal changes were seen. Twelve-lead EKG was obtained and showed sinus rhythm with ST elevation in leads V2, V3, V4. No reciprocal changes were seen. Given the patient's altered mental status and inability indicate whether or not she was experiencing chest pain, a STEMI alert was activated. CT of the brain was negative. Aorta CTA showed no evidence for aortic dissection. Patient was subsequently started on a heparin bolus and drip. On CT patient was noted to have a lower lobe pulmonary infiltrate possibly secondary to aspiration given the emesis on her face and hair. Cardiology, Dr. Cruz, was consulted. Given the patient's clinical picture, recommendations were made to obtain a troponin and staff echocardiogram as the patient's EKG did not show any evolving changes, no reciprocal changes and is not classic for STEMI. Echocardiogram with EF 40% to 45%. Patient was admitted for further evaluation and medical management. The following day the patient became became tachypneic (respirations 30) and was diaphoretic, peripherally cool. Decreased urine output. Unable to palpate a pulse but able to obtain a blood pressure measurement. A left central venous line was emergently placed The patient was bolused with 250mL normal saline and started levophed at 5 mcg/m. Placed left femoral art line and placed on Gamal Trac monitoring and CVP monitoring.A cardiac ultrasound, at bedside, demonstrated LV dysfunction but RV appeared dynamic with inadequate filling. No significant pericardial effusion. EKG with anterior lateral ST elevation as seen previously and T wave inversions. The patient responded to the normal saline bolus and Levophed was weaned. Patient becoming increasingly unstable overnight. Troponins trending upward. Patient remains encephalopathic, GCS 6. Palliative Care was consulted to assist with symptom management and to discuss with the patient/family the benefits and burdens of her current illnesses and the options regarding future care. . Review of Systems ROS Limitations: Clinical Condition (unable to participate and ROS), Intubated , Altered Mental Status Past Family Social History Coded Allergies: UNOBTAINABLE (Unverified , 10/18/16) Past Medical History EtOH Cirrhosis/liver failure Hepatitis C History of EtOH abuse and polysubstance abuse Hypothyroidism . Past Surgical History Rectal fistula repair 1980 Right wrist surgery Carpal tunnel surgery Tonsillectomy . . Current Medications Medications (Trade) Dose Ordered Sig/Renita Route Start Time Stop Time Status Last Admin (Heparin Inj) 5,000 units UNSCH PRN IV 10/18/16 16:45 Heparin Sodium (Porcine) 2500 units 2,500 units UNSCH PRN IV 10/18/16 16:45 (Heparin-D5W Inj) 250 ml @ 0 mls/hr TITRATE IV 10/18/16 10:45 10/18/16 12:26 Magnesium Oxide 800 mg 800 mg UNSCH PRN PO 10/18/16 11:00 Magnesium Sulfate 4 gm/Sodium Chloride 100 ml @ 50 mls/hr UNSCH PRN IV 10/18/16 11:00 Magnesium Sulfate 2 gm/Sodium Chloride 100 ml @ 50 mls/hr UNSCH PRN IV 10/18/16 11:00 Potassium Chloride 100 ml @ 50 mls/hr Q2H PRN IV 10/18/16 11:00 Potassium Chloride 100 ml @ 50 mls/hr Q2H PRN IV 10/18/16 11:00 Potassium Chloride 100 ml @ 50 mls/hr Q2H PRN IV 10/18/16 11:00 (KCl 40 Meq Premix Inj) 100 ml @ 25 mls/hr UNSCH PRN IV 10/18/16 11:00 (KCl 40 Meq/30 ml Liq) 40 meq UNSCH PRN PO/TUBE 10/18/16 11:00 (KCl 40 Meq/30 ml Liq) 40 meq UNSCH PRN PO/TUBE 10/18/16 11:00 (K-Phos) 2,000 mg Q4H PRN PO 10/18/16 11:00 Potassium Phosphate 2000 mg 2,000 mg UNSCH PRN PO/TUBE 10/18/16 11:00 Potassium Phosphate 30 mmol/ Sodium Chloride 260 ml @ 42 mls/hr UNSCH PRN IV 10/18/16 11:00 (Sodium Phosphate Inj/NS 250 ml Inj) 250 ml @ 42 mls/hr UNSCH PRN IV 10/18/16 11:00 (D50w (Vial) Inj) 25 ml UNSCH PRN IV PUSH 10/18/16 11:00 Insulin Human Regular 1 1 Q6HR SQ 10/18/16 12:00 (Diprivan 1000 Mg/100ml Inj) 100 ml @ 0 mls/hr TITRATE IV 10/18/16 11:00 10/19/16 05:40 (NS Flush) 2 ml UNSCH PRN IV FLUSH 10/18/16 11:00 (NS Flush) 2 ml BID IV FLUSH 10/18/16 21:00 10/19/16 08:41 (Protonix Inj) 40 mg DAILY IV 10/19/16 09:00 10/19/16 08:46 (Zofran Inj) 4 mg Q6H PRN IV 10/18/16 11:00 (Litzy-Colace) 2 tab BID PO 10/18/16 21:00 10/19/16 08:46 Miscellaneous Information 1 Q361D XX 10/18/16 11:00 (Chlorhexidine 2% Cloth) 3 pack Taper DAILY@04 TOP 10/19/16 04:00 10/15/17 03:59 10/19/16 04:00 (Chlorhexidine 2% Cloth) 3 pack UNSCH PRN TOP 10/18/16 11:00 (Peridex 0.12% Liq) 15 ml BID@08,20 MT 10/18/16 20:00 10/19/16 08:15 Polyethylene Glycol 17 gm 17 gm BID PO 10/18/16 21:00 10/19/16 08:46 Pharmacy Profile Note 0 ml @ 0 mls/hr UNSCH OTHER 10/18/16 15:15 Ceftriaxone Sodium 2000 mg/ Sodium Chloride 100 ml @ 200 mls/hr Q12H IV 10/18/16 17:00 10/19/16 05:41 (Flagyl 500 Mg Inj) 100 ml @ 100 mls/hr Q6H IV 10/18/16 16:00 10/19/16 10:09 Aspirin 325 mg 325 mg DAILY PO 10/19/16 09:00 10/19/16 08:46 (Vancomycin Inj/ NS 250 ml Inj) 250 ml @ 250 mls/hr Q24H IV 10/19/16 11:00 10/19/16 12:09 Miscellaneous Information SPECIFIC LAB TO BE DRAWN:VANCO TROUGH DATE... ONCE ONCE XX 10/21/16 10:45 10/21/16 10:46 (Levophed-Dextrose Drip) 250 ml @ 0 mls/hr TITRATE IV 10/18/16 21:15 10/19/16 05:53 Terbutaline Sulfate 1 mg 1 mg UNSCH PRN SQ 10/18/16 21:15 Fentanyl Citrate 250 ml @ 0 mls/hr TITRATE IV 10/18/16 21:30 Lactated Ringer's 1,000 ml @ 125 mls/hr Q8H IV 10/18/16 23:30 10/18/16 23:35 (Keppra 500 Mg Premix Inj) 100 ml @ 400 mls/hr Q12H IV 10/20/16 00:00 (Lopressor) 12.5 mg Q12HR PO/TUBE 10/19/16 21:00 (Prinivil) 2.5 mg DAILY PO 10/19/16 15:00 (Pill Splitter) 1 ea UNSCH PRN OTHER 10/19/16 14:45 Family History Grandmother had rest cancer. Mother had COPD and heart disease. Father's history positive for Parkinson's disease. . Substance Use Tobacco: 30- 40 pack-year smoking history Alcohol: History of EtOH abuse Prescription med abuse: None known Illicits: Remote history of intravenous drug use; cocaine use . Psychosocial History Patient was born in [place]. She lived in [place] and [place]. She was but is now . She has 3 adult children. 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 Spiritual/Cultural Factors Christianity galen . Ethical and Legal Issues Per [place] statutes, in the absence of written advanced directives healthcare proxy decision making fall to the majority of the patient's 3 adult children. . Physical Exam Vital Signs Date Time Temp Pulse Resp B/P Pulse Ox O2 Delivery O2 Flow Rate FiO2 10/19/16 12:15 99 40 10/19/16 08:00 110 10/19/16 08:00 40 10/19/16 07:43 99 40 10/19/16 05:13 40 10/19/16 05:00 97.0 10/19/16 04:15 99 40 10/19/16 04:00 96.0 10/19/16 04:00 97 10/19/16 03:00 95 10/19/16 03:00 95 112/80 146/72 10/19/16 02:00 93 126/80 147/76 10/19/16 01:40 98 40 10/19/16 01:13 40 10/19/16 01:00 89 129/86 160/75 10/19/16 00:00 95 139/98 174/85 10/18/16 23:30 40 10/18/16 23:12 99 40 10/18/16 23:01 101 10/18/16 23:00 101 10/18/16 23:00 100 113/87 145/75 10/18/16 22:19 99 40 10/18/16 21:30 103 125/96 10/18/16 20:05 98 40 10/18/16 19:30 40 10/18/16 19:30 107 10/18/16 16:00 106 10/18/16 15:40 98 40 . 10/18/16 10/19/16 19:00 07:00 Intake Total 1794 ml Output Total 446 ml Balance 1348 ml Intake Oral 0 ml IV Total 1794 ml Output Urine Total 346 ml Gastric Drainage Total 100 ml # Bowel Movements 0 . Exam CONSTITUTIONAL/GENERAL: This is an adequately nourished patient, in no apparent distress. TUBES/LINES/DRAINS: SKIN: No jaundice, rashes, or lesions. Ecchymoses on upper extremities. No wounds seen anteriorly. Skin temperature appropriate. Not diaphoretic. HEAD: Atraumatic. Normocephalic. EYES: Pupils equal and round and reactive. Extraocular motions intact. No scleral icterus. No injection or drainage. Fundi not examined. ENT: Hearing grossly normal. Nose without bleeding or purulent drainage. Throat without visible erythema, exudates, masses, or lesions. NECK: Trachea midline. Supple, nontender. No palpable thyroid enlargement or nodularity. CARDIOVASCULAR: Regular rate and rhythm without murmurs, gallops, or rubs. No JVD. Peripheral pulses symmetric. RESPIRATORY/CHEST: Symmetric, unlabored respirations. Clear to auscultation. Breath sounds equal bilaterally. No wheezes, rales, or rhonchi. GASTROINTESTINAL: Abdomen soft, non-tender, nondistended. No hepato-splenomegaly , or palpable masses. No guarding. Bowel sounds present. GENITOURINARY: Without palpable bladder distension. Garces catheter in place. MUSCULOSKELETAL: Extremities without clubbing, cyanosis, or edema. No joint tenderness or effusion noted. No calf tenderness. No mottling or clubbing. LYMPHATICS: No palpable cervical or supraclavicular adenopathy. NEUROLOGICAL: Awake and alert. Motor and sensory grossly within normal limits. Follows commands. Cognitively sharp. Moves all extremities. PSYCHIATRIC: No obvious anxiety/depression. no apparent hallucinations or other psychotic thought process. Diagnostic Tests Laboratory Laboratory Tests Test 10/18/16 10/18/16 10/18/16 10/18/16 09:35 10:30 10:50 15:00 White Blood Count 19.6 TH/MM3 (4.0-11.0) Red Blood Count 5.07 MIL/MM3 (4.00-5.30) Hemoglobin 16.6 GM/DL (11.6-15.3) Bedside Hemoglobin 18.0 G/DL (12.0-17.0) Hematocrit 49.2 % (35.0-46.0) Bedside Hematocrit 53.0 % (38.0-51.0) Mean Corpuscular Volume 97.1 FL (80.0-100.0) Mean Corpuscular Hemoglobin 32.8 PG (27.0-34.0) Mean Corpuscular Hemoglobin 33.7 % Concent (32.0-36.0) Red Cell Distribution Width 13.3 % (11.6-17.2) Platelet Count 502 TH/MM3 (150-450) Mean Platelet Volume 7.3 FL (7.0-11.0) Neutrophils (%) (Auto) 87.5 % (16.0-70.0) Lymphocytes (%) (Auto) 5.5 % (9.0-44.0) Monocytes (%) (Auto) 5.6 % (0.0-8.0) Eosinophils (%) (Auto) 0.2 % (0.0-4.0) Basophils (%) (Auto) 1.2 % (0.0-2.0) Neutrophils # (Auto) 17.2 TH/MM3 (1.8-7.7) Lymphocytes # (Auto) 1.1 TH/MM3 (1.0-4.8) Monocytes # (Auto) 1.1 TH/MM3 (0-0.9) Eosinophils # (Auto) 0.0 TH/MM3 (0-0.4) Basophils # (Auto) 0.2 TH/MM3 (0-0.2) CBC Comment DIFF FINAL Differential Comment Prothrombin Time 11.1 SEC (9.8-11.6) Prothromb Time International 1.0 RATIO Ratio Activated Partial 26.6 SEC Thromboplast Time (24.3-30.1) Bedside Sodium 131 MMOL/L (138-146) Bedside Potassium 4.4 MMOL/L (3.5-4.9) Bedside Chloride 105 MMOL/L (98-109) Bedside Blood Urea Nitrogen 13 MG/DL (8-26) Bedside Creatinine 1.3 MG/DL (0.6-1.0) Bedside Glucose 142 MG/DL (60-95) Total Bilirubin 0.6 MG/DL (0.2-1.0) Direct Bilirubin 0.1 MG/DL (0.0-0.2) Indirect Bilirubin 0.5 MG/DL (0.0-0.8) Aspartate Amino Transf 49 U/L (15-37) (AST/SGOT) Alanine Aminotransferase 35 U/L (10-53) (ALT/SGPT) Alkaline Phosphatase 103 U/L (45-117) Total Creatine Kinase 397 U/L (26-192) Creatine Kinase MB 13.9 NG/ML (0.5-3.6) Creatine Kinase MB % 3.5 % (0.0-4.0) Troponin I 4.80 NG/ML (0.02-0.05) B-Type Natriuretic Peptide 340 PG/ML (0-100) Total Protein 7.6 GM/DL (6.4-8.2) Albumin 3.9 GM/DL (3.4-5.0) Lipase 145 U/L (73-393) Thyroid Stimulating Hormone 0.269 uIU/ML 3rd Gen (0.358-3.740) Salicylates Level 4.5 MG/DL (2.8-20.0) Acetaminophen Level LESS THAN 2.0 MCG/ML (10.0-30.0) Ethyl Alcohol Level LESS THAN 3 MG/DL (0-5) Blood Gas Puncture Site RT RADIAL Blood Gas Patient Temperature 98.6 Blood Gas HCO3 18 mmol/L (22-26) Blood Gas Base Excess -7.4 mmol/L (-2-2) Blood Gas Oxygen Saturation 96 % (90-100) Arterial Blood pH 7.32 (7.380-7.420) Arterial Blood Partial 35 mmHg (38-42) Pressure CO2 Arterial Blood Partial 250 mmHG Pressure O2 (61-120) Arterial Blood Oxygen Content 22.3 Vol % (12.0-20.0) Arterial Blood 1.8 % (0-4) Carboxyhemoglobin Arterial Blood Methemoglobin 1.9 % (0-2) Blood Gas Hemoglobin 16.2 G/DL (12.0-16.0) Oxygen Delivery Device VENTILATOR Blood Gas Ventilator Setting AC14/500/PEEP5 Blood Gas Inspired Oxygen 50 % Urine Color LIGHT-YELLOW (YELLW/STRAW) Urine Turbidity CLEAR (CLEAR) Urine pH 6.5 (5.0-8.5) Urine Specific Bruni 1.050 (1.002-1.035) Urine Protein 30 mg/dL (NEG-TRACE) Urine Glucose (UA) NEG mg/dL (NEG) Urine Ketones TRACE mg/dL (NEG) Urine Occult Blood SMALL (NEG) Urine Nitrite NEG (NEG) Urine Bilirubin NEG (NEG) Urine Urobilinogen LESS THAN 2.0 MG/DL (LESS THAN 2.0) Urine Leukocyte Esterase NEG (NEG) Urine RBC 3 /hpf (0-3) Urine WBC 5 /hpf (0-5) Urine Squamous Epithelial 1 /hpf (0-5) Cells Urine Bacteria RARE /hpf (NONE) Urine Hyaline Casts 7 /lpf (RARE) Urine Mucus FEW /lpf (OCC) Microscopic Urinalysis Comment CATH-CULTURE IND Urine Opiates Screen NEG (NEG) NEG (NEG) Urine Barbiturates Screen NEG (NEG) NEG (NEG) Urine Amphetamines Screen NEG (NEG) NEG (NEG) Urine Benzodiazepines Screen POS (NEG) POS (NEG) Urine Cocaine Screen NEG (NEG) NEG (NEG) Urine Cannabinoids Screen NEG (NEG) NEG (NEG) Test 10/18/16 10/18/16 10/18/16 10/18/16 15:10 19:18 21:56 22:55 Total Creatine Kinase 889 U/L 707 U/L (26-192) (26-192) Creatine Kinase MB 22.1 NG/ML 25.5 NG/ML (0.5-3.6) (0.5-3.6) Creatine Kinase MB % 2.5 % (0.0-4.0) 3.6 % (0.0-4.0) Troponin I 5.52 NG/ML 9.08 NG/ML (0.02-0.05) (0.02-0.05) Activated Partial 54.7 SEC 75.2 SEC Thromboplast Time (24.3-30.1) (24.3-30.1) Lactic Acid Level 3.2 mmol/L 2.6 mmol/L (0.4-2.0) (0.4-2.0) Ammonia 35 MCMOL/L (11-32) Free Thyroxine 1.26 NG/DL (0.76-1.46) White Blood Count 18.8 TH/MM3 (4.0-11.0) Red Blood Count 4.99 MIL/MM3 (4.00-5.30) Hemoglobin 16.3 GM/DL (11.6-15.3) Hematocrit 48.3 % (35.0-46.0) Mean Corpuscular Volume 96.8 FL (80.0-100.0) Mean Corpuscular Hemoglobin 32.7 PG (27.0-34.0) Mean Corpuscular Hemoglobin 33.8 % Concent (32.0-36.0) Red Cell Distribution Width 13.5 % (11.6-17.2) Platelet Count 465 TH/MM3 (150-450) Mean Platelet Volume 7.9 FL (7.0-11.0) Neutrophils (%) (Auto) 87.7 % (16.0-70.0) Lymphocytes (%) (Auto) 6.6 % (9.0-44.0) Monocytes (%) (Auto) 5.3 % (0.0-8.0) Eosinophils (%) (Auto) 0.1 % (0.0-4.0) Basophils (%) (Auto) 0.3 % (0.0-2.0) Neutrophils # (Auto) 16.5 TH/MM3 (1.8-7.7) Lymphocytes # (Auto) 1.2 TH/MM3 (1.0-4.8) Monocytes # (Auto) 1.0 TH/MM3 (0-0.9) Eosinophils # (Auto) 0.0 TH/MM3 (0-0.4) Basophils # (Auto) 0.1 TH/MM3 (0-0.2) CBC Comment DIFF FINAL Differential Comment Prothrombin Time 12.4 SEC (9.8-11.6) Prothromb Time International 1.1 RATIO Ratio Sodium Level 142 MEQ/L (136-145) Potassium Level 3.4 MEQ/L (3.5-5.1) Chloride Level 108 MEQ/L (98-107) Carbon Dioxide Level 19.1 MEQ/L (21.0-32.0) Anion Gap 15 MEQ/L (5-15) Blood Urea Nitrogen 18 MG/DL (7-18) Creatinine 1.36 MG/DL (0.50-1.00) Estimat Glomerular Filtration 40 ML/MIN (>89) Rate Random Glucose 127 MG/DL (74-106) Calcium Level 8.8 MG/DL (8.5-10.1) Total Bilirubin 0.7 MG/DL (0.2-1.0) Aspartate Amino Transf 83 U/L (15-37) (AST/SGOT) Alanine Aminotransferase 42 U/L (10-53) (ALT/SGPT) Alkaline Phosphatase 88 U/L (45-117) Total Protein 6.5 GM/DL (6.4-8.2) Albumin 3.2 GM/DL (3.4-5.0) B-Type Natriuretic Peptide 1551 PG/ML (0-100) Blood Gas Puncture Site CENTRAL LINE Blood Gas Patient Temperature 98.6 Venous Blood pH 7.26 (7.360-7.400) Venous Blood Partial Pressure 40 mmHg (44-48) CO2 Venous Blood Partial Pressure 41 mmHg (35-40) O2 Venous Blood HCO3 17 mmol/L (22-26) Venous Blood Oxygen Saturation 63 % (70-76) Venous Blood Oxygen Content 14.9 Vol % (9.0-17.0) Venous Blood Base Excess -8.5 mmol/L (-2-2) Oxygen Delivery Device VENTILATOR Blood Gas Ventilator Setting [facility]/AC/500/ Blood Gas Inspired Oxygen 40 % Test 10/19/16 10/19/16 10/19/16 04:10 08:00 10:26 White Blood Count 18.3 TH/MM3 (4.0-11.0) Red Blood Count 4.39 MIL/MM3 (4.00-5.30) Hemoglobin 14.4 GM/DL (11.6-15.3) Hematocrit 43.1 % (35.0-46.0) Mean Corpuscular Volume 98.2 FL (80.0-100.0) Mean Corpuscular Hemoglobin 32.8 PG (27.0-34.0) Mean Corpuscular Hemoglobin 33.4 % Concent (32.0-36.0) Red Cell Distribution Width 13.5 % (11.6-17.2) Platelet Count 357 TH/MM3 (150-450) Mean Platelet Volume 7.7 FL (7.0-11.0) Activated Partial 123.2 SEC 54.1 SEC Thromboplast Time (24.3-30.1) (24.3-30.1) Sodium Level 146 MEQ/L (136-145) Potassium Level 3.6 MEQ/L (3.5-5.1) Chloride Level 111 MEQ/L (98-107) Carbon Dioxide Level 19.5 MEQ/L (21.0-32.0) Anion Gap 16 MEQ/L (5-15) Blood Urea Nitrogen 17 MG/DL (7-18) Creatinine 1.07 MG/DL (0.50-1.00) Estimat Glomerular Filtration 52 ML/MIN (>89) Rate Random Glucose 135 MG/DL (74-106) Lactic Acid Level 3.0 mmol/L (0.4-2.0) Calcium Level 7.9 MG/DL (8.5-10.1) Total Creatine Kinase 496 U/L 310 U/L (26-192) (26-192) Creatine Kinase MB 28.1 NG/ML 21.2 NG/ML (0.5-3.6) (0.5-3.6) Creatine Kinase MB % 5.7 % (0.0-4.0) 6.8 % (0.0-4.0) Troponin I 6.51 NG/ML 6.10 NG/ML (0.02-0.05) (0.02-0.05) . Result Diagram: 10/19/16 0410 10/19/16 0410 Microbiology Microbiology Date/Time Procedure Status Source Growth 10/18/16 10:50 Urine Culture - Preliminary Resulted Urine Catheterized Urine NO GROWTH IN 24 HOURS. 10/18/16 15:10 Aerobic Blood Culture - Preliminary Resulted Blood Peripheral NO GROWTH IN 1 DAY 10/18/16 15:10 Anaerobic Blood Culture - Preliminary Resulted Blood Peripheral NO GROWTH IN 1 DAY 10/18/16 15:20 Aerobic Blood Culture - Preliminary Resulted Blood Peripheral NO GROWTH IN 1 DAY 10/18/16 15:20 Anaerobic Blood Culture - Preliminary Resulted Blood Peripheral NO GROWTH IN 1 DAY 10/19/16 04:22 Gram Stain - Final Resulted Sputum Endotracheal 10/19/16 04:22 Sputum Culture Resulted Sputum Endotracheal Pending . Imaging Last 48 hours Impressions Aorta CTA 10/18/16 6726 Signed Impressions: Service Date/Time: Tuesday, October 18, 2016 10:08 - CONCLUSION: 1. No evidence for aortic dissection. 2. Tree in bud infiltrate left lower lobe. Evangelist Hurley MD Head CT 10/18/16 0948 Signed Impressions: Service Date/Time: Tuesday, October 18, 2016 10:00 - CONCLUSION: Normal examination. Evangelist Hurley MD Chest X-Ray 10/18/16 0940 Signed Impressions: Service Date/Time: Tuesday, October 18, 2016 09:43 - CONCLUSION: Clear lungs. Evangelist Hurley MD Chest X-Ray 10/18/16 0000 Signed Impressions: Service Date/Time: Tuesday, October 18, 2016 23:06 - CONCLUSION: 1. Lines and tubes as detailed above without pneumothorax. 2. Tiny bilateral pleural effusions. Sandoval Purvis Jr., MD . Procedures 10/18/16: Intubation 10/18/16: NG tube placement 10/19/16: Left IJ central venous access 10/19/16: Left femoral arterial catheter placement . Patient/Family Conference Present at Family Conference: NA Issues Discussed: * FULL CODE * Decision making: Per [place] statutes, in the absence of written advanced directives healthcare proxy decision making would fall to the majority of the patient's 3 adult children. * Goals: Aggressive goals * Palliative care will continue to follow this patient had her hospitalization to establish trust, this was symptom management and clarification of medical treatment goals. . Assessment and Plan Disease Oriented Problem List: (1) Leukocytosis (2) ST elevation MS (STEMI) (3) Sepsis (4) Altered mental status (5) Elevated troponin (6) Left lower lobe pneumonia Symptom Scale: (1) Pain (2) Dyspnea Pertinent Non-Medical Issues Psychosocial:Patient was born in [place]. She lived in [place] and [place]. She was but is now . She has 3 adult children. 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 Spiritual: Christianity galen. Legal: Per [place] statutes, in the absence of written advanced directives healthcare proxy decision making would fall to the majority of the patient's 3 adult children. Ethical issues impacting care: No known ethical issues impacting care at this time. . Important Contacts Possible contacts: Sole Rhodes, friend: [phone] Thank you for the opportunity to participate in the care of Ms. Stanton. . Attestation To help prompt me to consider important information that might be impacting today's encounter and assessment, information from prior notes written by myself or my colleagues may have been "brought forward" into today's note. My signature on this note, however, is an attestation that I personally performed the exam, history, and/or decision-making noted today, and, unless otherwise indicated, the interactions with patient, family, and staff as well as the review of records all occurred today. I also attest that the listed assessment and stated plan reflect my best clinical judgment today based on the combination of historical information, prior notes, and today's exam/ interactions. When time spent is documented, it refers only to time spent today by the signer, or if indicated, combined time spent today by collaborating physician/nurse practitioner. . Moon Boyd Oct 19, 2016 15:09
--- NOTE | 2016-10-19 15:25 | HHI.HCPN ---
Palliative care consulted to assist with goals of care for Ms. Stanton. Through review of patient's medical record, patient is also known as Chikis Molina. Confirmed through SS #, , etc. Was able to obtain further contact information for potential family through past medical records in [facility] and [facility] as patient was previously on hospice service in 2009. Ms. Stanton has 3 adult children, Quyen Molina (daughter), Carolyn Molina (daughter), and Matthew Molina (son). Spoke with daughter Quyen who also confirmed patient being known as Chikis Molina as well. Quyen states she is the most involved with her mother at this time although she has been in contact with her sister, Carolyn, who has also been involved of patient's medical condition. Quyen provided the following contact information for her siblings. Palliative care to speak with family to determine if all children wish to be involved in medical decision making and further address goals of care. Quyen (daughter): #[phone]-- wishes to be involved in medical decision making Carolyn(daughter): #[phone]-- possibly incorrect number as unable to reach-- will need to confirm with Quyen and/or Matthew of correct number Matthew (son): #[phone]-- unable to reach and unable to leave a message at this time No known written advanced directives, in absence of advanced directives, per [place] statutes, medical proxy decision making would fall to the majority of patient's children who are readily available and wish to participate in decision making. Palliative care will speak with family to determine legal proxy(ies) and further clarify goals of care. Tyra Purvis, FLOAT PHLEBOTOMIST Oct 19, 2016 15:25
[2016-10-19 15:57] LABS: APTT (PATIENT) 42.5 SEC (24.3-30.1)
--- NOTE | 2016-10-19 16:50 | HHI.HCPN ---
Palliative care consult received. Discussed with Dr. Thakur. Patient was in radiology when attempted to visit. Spoke with daughter, Quyen to provide medical update and arrange family conference call. Quyen wishes to participate in serving as health care proxy decision making and understands according to [place] law we still need to allow her siblings to participate should they choose. Daughter is appropriately tearful. She is going to speak with her siblings. Carolyn and Matthew to coordinate a time for conference call. Palliative care has attempted to call Matthew and Carolyn, unable to leave messages. Will further clarify goals once we are able to determine if all 3 children wish to participate in decision making. Consult will be completed . STEPHANIE BENTON Oct 19, 2016 16:50
--- NOTE | 2016-10-19 17:20 | RADRPT ---
EXAM DATE/TIME: 10/19/2016 16:31 [facility] COMPARISON: CT BRAIN W/O CONTRAST, October 18, 2016, 10:00. INDICATIONS : Seizures. MEDICAL HISTORY : Diabetes mellitus type 2. Cirrhosis. Hypothyroidism. SURGICAL HISTORY : Fusion, lumbar. Carpal tunnel. ENCOUNTER: Subsequent ACUITY: 2 day PAIN SCORE: Nonresponsive. LOCATION: head TECHNIQUE: Multiplanar, multisequence MRI of the brain was performed without contrast. FINDINGS: CEREBRUM: The ventricles are normal for age. No evidence of midline shift, mass lesion, hemorrhage or acute in farction. No extraaxial fluid collections are seen. The pituitary gland and suprasellar cistern are normal in configuration. WHITE MATTER: No significant signal abnormalities are seen in the white matter. POSTERIOR FOSSA: The cerebellum and brainstem are intact. The 4th ventricle is midline. The cerebellopontine angle is unremarkable. The cerebellar tonsils are normal in position. DIFFUSION IMAGING: No focal areas of restricted diffusion are seen. No evidence of acute infarction. EXTRACRANIAL: There is mucoperiosteal thickening of the visualized sinuses, especially ethmoid and maxillary. CONCLUSION: Noncontrast MRI appearance of the brain within normal limits for a patient this age. No acute intracr anial abnormality is demonstrated. Sinus disease noted. Lucas Montes MD on October 19, 2016 at 17:17 Board Certified Radiologist. This report was verified electronically.
--- NOTE | 2016-10-19 17:54 | EKG ---
Date Performed: 10/18/2016 Time Performed: 11:11:45 PTAGE: 61 years EKG: SINUS TACHYCARDIA WITH SHORT PA INTERVAL ST ELEVATION CONSISTENT WITH INJURY, PERICARDITIS, OR EARLY REPOLARIZATION NONSPECIFIC ST & T-WAVE ABNORMALITY. Since previous tracing, no significant change noted ABNORMAL ECG PREVIOUS TRACING : 10/18/2016 10.47 DOCTOR: Cait Cruz Interpretating Date/Time 10/19/2016 17:52:21
[2016-10-19] MEDS: SODIUM CHLORIDE 0.9% IV SCH (19:02)
[2016-10-19] MEDS: ACYCLOVIR IV SCH (19:02)
--- NOTE | 2016-10-19 19:08 | HHI.PR ---
Objective Vital Signs Date Time Temp Pulse Resp B/P Pulse Ox O2 Delivery O2 Flow Rate FiO2 10/19/16 17:12 99 40 10/19/16 16:15 100 100 10/19/16 16:00 98 10/19/16 16:00 98.8 98 16 99/62 99 125/59 10/19/16 12:15 99 40 10/19/16 12:00 98.8 114 27 72/56 99 97/50 10/19/16 12:00 114 10/19/16 08:00 110 10/19/16 08:00 40 10/19/16 07:43 99 40 10/19/16 05:13 40 10/19/16 05:00 97.0 10/19/16 04:15 99 40 10/19/16 04:00 96.0 10/19/16 04:00 97 10/19/16 03:00 95 10/19/16 03:00 95 112/80 146/72 10/19/16 02:00 93 126/80 147/76 10/19/16 01:40 98 40 10/19/16 01:13 40 10/19/16 01:00 89 129/86 160/75 10/19/16 00:00 95 139/98 174/85 10/18/16 23:30 40 10/18/16 23:12 99 40 10/18/16 23:01 101 10/18/16 23:00 101 10/18/16 23:00 100 113/87 145/75 10/18/16 22:19 99 40 10/18/16 21:30 103 125/96 10/18/16 20:05 98 40 10/18/16 19:30 40 10/18/16 19:30 107 I/O 10/18/16 10/18/16 10/18/16 10/19/16 10/19/16 10/19/16 06:59 14:59 22:59 06:59 14:59 22:59 Intake Total 1794 ml Output Total 446 ml Balance 1348 ml Intake Oral 0 ml IV Total 1794 ml Output Urine Total 346 ml Gastric Drainage Total 100 ml # Bowel Movements 0 Result Diagram: 10/19/1640910/19/16409 Assessment and Plan Assessment and Plan eeg shows sharps not quite pleds will cover with acyclovir and if does not awaken of sedation will need LP and anticoagulants will need to be dced add ampicillin steroid dose Al Su MD Oct 19, 2016 19:08
[2016-10-19] MEDS ORDERED: methylPREDNISolone SOD SUCC 125 MG/2 ML VIAL IV PUSH ONE (19:15)
--- NOTE | 2016-10-19 19:56 | MG ---
cc: JANNY CAMPA Lab No: Date: Age: Sex: F Race: ELECTROENCEPHALOGRAM NUMBER [id number] INTRODUCTION Fentanyl. Diprivan. Hyperventilation not performed. Found unconscious. Vancomycin. Keppra. DESCRIPTION The recording shows diffuse 4 Hz slowing with some sharp wave seen over the midline head region not quite periodic but abnormal. Photic stimulation was performed without significant posterior driving. These sharp waves can occur at about every 2 seconds at some intervals, other times not for 10 seconds. IMPRESSION Some abnormally sharp waves not quite PLEDs but increased epileptiform or increased seizure risk. Herpes encephalitis could be entertained. The patient has been started on acyclovir. MD EDUARDO Alexis/ERASMO /6:58 PM /7:51 PM
--- NOTE | 2016-10-19 20:08 | MB ---
cc: JANNY CAMPA DATE OF CONSULTATION: 10/19/2016 REASON FOR CONSULTATION: HISTORY OF PRESENT ILLNESS: The patient is a 61 year-old woman who was brought in yesterday, found unresponsive at home, possibly flailing her arm, it is unclear. She wears a morphine patch, although no patches were found on the patient. She had dried vomitus around her mouth, was subsequently intubated. She was given a sedation vacation earlier today and sat up, opened her eyes, and then put back on sedatives, now she has been off sedatives for about an hour. She just had an MRI done which I reviewed and was normal without contrast. We do not have any history on her here. She is sedated at this time. She is on Keppra 500 b.i.d., Lopressor, vancomycin, Protonix, 325 of aspirin, ceftriaxone. PHYSICAL EXAMINATION: There were no carotid bruits. Heart: Regular rhythm. I did not detect murmur. Neurologic: Pupils were equal. Deep nasal stimulation has an appropriate response bilaterally. Dolls appear to be normal. Toes are downgoing bilaterally. Tone is normal throughout. There is no ankle clonus. DTRs are trace. LABORATORY DATA: White count is 18,000, hematocrit 43, platelet count 357. Urine drug screen was essentially negative, except positive for benzos. Basic metabolic profile essentially normal. GFR 52, glucose 135. CPK 300. Troponin positive at 6, T4 normal, TSH 0.27. Albumin normal. LFTs normal. Ammonia level normal. MRI of the brain, I reviewed that as normal. CT scan of the brain was normal. EEG: Evidently showed some abnormal activity and Keppra was started. Will review that. I did talk with her daughter and she said she does not know if she was ill for the last few days but she was not taking her usual morphine. PLAN: I think just to cover her until she wakes up, will give her a dose of acyclovir. MD EDUARDO Alexis/CHRISTY /6:22 PM /8:00 PM
[2016-10-19] MEDS: AMPICILLIN INJ 2,000 MG in SODIUM CHLORIDE 0.9% INJ 100 ML IV SCH (20:25)
[2016-10-19] MEDS ORDERED: METOPROLOL TARTRATE 25 MG TAB PO/TUBE SCH (21:00)
[2016-10-19] MEDS: levETIRAcetam 500MG PREMIX INJ 100 ML IV SCH (23:04)
[2016-10-19] MEDS: HEPARIN-D5W INJ 250 ML IV SCH (23:04)
[2016-10-20] VITALS (14 sets, daily range): BP systolic 143–186; BP diastolic 78–104; PULSE 74–123; RESP 26; TEMP 98.6–99.4; O2SAT 99–100
[2016-10-20] MEDS: AMPICILLIN INJ 2,000 MG in SODIUM CHLORIDE 0.9% INJ 100 ML IV SCH ×7 (01:21→23:56)
[2016-10-20] MEDS: LACTATED RINGER'S 1000 ML INJ 1,000 ML IV SCH ×2 (01:23→21:56)
[2016-10-20] MEDS: PROPOFOL 1000 MG/100 ML INJ 100 ML IV SCH ×3 (01:40→20:24)
[2016-10-20] MEDS: CHLORHEXIDINE GLUCONATE 2 % 1 PACK (2 CLOTHS) TOP SCH (04:00)
[2016-10-20] MEDS: metroNIDAZOLE 500 MG INJ 100 ML IV SCH ×4 (04:14→21:55)
[2016-10-20] MEDS: ACYCLOVIR IV SCH ×3 (04:14→20:25)
[2016-10-20] MEDS: SODIUM CHLORIDE 0.9% IV SCH ×3 (04:14→20:25)
[2016-10-20] MEDS: RESP: ALBUTEROL 2.5 MG/IPRATROPIUM 0.5 MG NEB (SCH) INH ×4 (04:20→20:41)
[2016-10-20] MEDS ORDERED: METOPROLOL TARTRATE 5 MG/5 ML VIAL IV PUSH ONE (04:45)
[2016-10-20] MEDS: cefTRIAXone INJ 2,000 MG in SODIUM CHLORIDE 0.9% INJ 100 ML IV SCH ×2 (05:14→18:10)
[2016-10-20 06:03] LABS: MEAN CELL VOLUME 97.4 FL (80.0-100.0); MEAN CORPUSCULAR HEMOGLOBIN 32.5 PG (27.0-34.0); MEAN CORPUSCULAR HGB CONC 33.3 % (32.0-36.0); PLATELET COUNT 257 TH/MM3 (150-450); RED BLOOD COUNT 3.39 MIL/MM3 (4.00-5.30); RED CELL DISTRIBUTION WIDTH 13.3 % (11.6-17.2); REVIEW FLAG FINAL; WHITE BLOOD COUNT 15.7 TH/MM3 (4.0-11.0)
[2016-10-20 06:07] LABS: APTT (PATIENT) 37.4 SEC (24.3-30.1)
[2016-10-20 06:12] LABS: BICARBONATE 23.1 MEQ/L (21.0-32.0)
[2016-10-20] MEDS: INSULIN NovoLIN REGULAR SUPPLEMENTAL SCALE SQ SCH ×4 (06:47→23:56)
--- NOTE | 2016-10-20 07:34 | HHI.PR ---
Objective Vital Signs Date Time Temp Pulse Resp B/P Pulse Ox O2 Delivery O2 Flow Rate FiO2 10/20/16 07:20 99 40 10/20/16 04:28 115 26 155/91 99 186/96 10/20/16 04:22 100 40 10/20/16 03:00 88 10/20/16 03:00 98.9 88 26 158/86 99 10/20/16 01:33 100 40 10/19/16 23:56 40 10/19/16 23:00 120 32 151/83 99 10/19/16 23:00 135 10/19/16 22:15 99 40 10/19/16 21:00 113 10/19/16 21:00 113 26 146/94 99 10/19/16 20:42 99 40 10/19/16 20:00 40 10/19/16 19:00 98.6 96 26 132/88 99 126/74 10/19/16 19:00 96 10/19/16 17:12 99 40 10/19/16 16:15 100 100 10/19/16 16:00 98 10/19/16 16:00 98.8 98 16 99/62 99 125/59 10/19/16 12:15 99 40 10/19/16 12:00 98.8 114 27 72/56 99 97/50 10/19/16 12:00 114 10/19/16 08:00 110 10/19/16 08:00 40 10/19/16 07:43 99 40 I/O 10/19/16 10/19/16 10/19/16 10/20/16 10/20/16 10/20/16 06:59 14:59 22:59 06:59 14:59 22:59 Intake Total 1794 ml 2612 ml 2237 ml Output Total 446 ml 245 ml 480 ml Balance 1348 ml 2367 ml 1757 ml Intake Oral 0 ml 0 ml IV Total 1794 ml 2612 ml 2237 ml Output Urine Total 346 ml 245 ml 380 ml Gastric Drainage Total 100 ml 100 ml # Bowel Movements 0 0 0 Result Diagram: 10/20/1652610/20/16526 Objective Remarks pupil = moves rle flexed to pain not left some ?extnsor bue to pain just off sedatives last pm sat up in bed and purposeful arms but no eye contactand no follow commands accto nurse Assessment and Plan Assessment and Plan eeg shows sharps not quite pleds will cover with acyclovir abt and do LP steroid dose recheck abg some hypoxia on last abg? Al Su MD Oct 20, 2016 07:34
--- NOTE | 2016-10-20 08:11 | PD.CARD.PN ---
Subjective Subjective Remarks Not responsive on vent- sedation off Objective Medications Current Medications Medications (Trade) Dose Ordered Sig/Renita Route Start Time Stop Time Status Last Admin Magnesium Oxide 800 mg 800 mg UNSCH PRN PO 10/18/16 11:00 Magnesium Sulfate 4 gm/Sodium Chloride 100 ml @ 50 mls/hr UNSCH PRN IV 10/18/16 11:00 Magnesium Sulfate 2 gm/Sodium Chloride 100 ml @ 50 mls/hr UNSCH PRN IV 10/18/16 11:00 Potassium Chloride 100 ml @ 50 mls/hr Q2H PRN IV 10/18/16 11:00 Potassium Chloride 100 ml @ 50 mls/hr Q2H PRN IV 10/18/16 11:00 Potassium Chloride 100 ml @ 50 mls/hr Q2H PRN IV 10/18/16 11:00 (KCl 40 Meq Premix Inj) 100 ml @ 25 mls/hr UNSCH PRN IV 10/18/16 11:00 (KCl 40 Meq/30 ml Liq) 40 meq UNSCH PRN PO/TUBE 10/18/16 11:00 (KCl 40 Meq/30 ml Liq) 40 meq UNSCH PRN PO/TUBE 10/18/16 11:00 (K-Phos) 2,000 mg Q4H PRN PO 10/18/16 11:00 Potassium Phosphate 2000 mg 2,000 mg UNSCH PRN PO/TUBE 10/18/16 11:00 Potassium Phosphate 30 mmol/ Sodium Chloride 260 ml @ 42 mls/hr UNSCH PRN IV 10/18/16 11:00 (Sodium Phosphate Inj/NS 250 ml Inj) 250 ml @ 42 mls/hr UNSCH PRN IV 10/18/16 11:00 (D50w (Vial) Inj) 25 ml UNSCH PRN IV PUSH 10/18/16 11:00 Insulin Human Regular 1 1 Q6HR SQ 10/18/16 12:00 10/20/16 06:47 (Diprivan 1000 Mg/100ml Inj) 100 ml @ 0 mls/hr TITRATE IV 10/18/16 11:00 10/20/16 01:40 (NS Flush) 2 ml UNSCH PRN IV FLUSH 10/18/16 11:00 (NS Flush) 2 ml BID IV FLUSH 10/18/16 21:00 10/19/16 20:24 (Zofran Inj) 4 mg Q6H PRN IV 10/18/16 11:00 (Litzy-Colace) 2 tab BID PO 10/18/16 21:00 10/19/16 20:23 Miscellaneous Information 1 Q361D XX 10/18/16 11:00 (Chlorhexidine 2% Cloth) 3 pack Taper DAILY@04 TOP 10/19/16 04:00 10/15/17 03:59 10/20/16 04:00 (Chlorhexidine 2% Cloth) 3 pack UNSCH PRN TOP 10/18/16 11:00 (Peridex 0.12% Liq) 15 ml BID@08,20 MT 10/18/16 20:00 10/19/16 20:26 Polyethylene Glycol 17 gm 17 gm BID PO 10/18/16 21:00 10/19/16 20:23 Pharmacy Profile Note 0 ml @ 0 mls/hr UNSCH OTHER 10/18/16 15:15 Ceftriaxone Sodium 2000 mg/ Sodium Chloride 100 ml @ 200 mls/hr Q12H IV 10/18/16 17:00 10/20/16 05:14 Metronidazole 100 ml @ 100 mls/hr Q6H IV 10/18/16 16:00 10/20/16 04:14 (Vancomycin Inj/ NS 250 ml Inj) 250 ml @ 250 mls/hr Q24H IV 10/19/16 11:00 10/19/16 12:09 Miscellaneous Information SPECIFIC LAB TO BE DRAWN:VANCO TROUGH DATE... ONCE ONCE XX 10/21/16 10:45 10/21/16 10:46 (Levophed-Dextrose Drip) 250 ml @ 0 mls/hr TITRATE IV 10/18/16 21:15 10/19/16 05:53 Terbutaline Sulfate 1 mg 1 mg UNSCH PRN SQ 10/18/16 21:15 Fentanyl Citrate 250 ml @ 0 mls/hr TITRATE IV 10/18/16 21:30 Lactated Ringer's 1,000 ml @ 125 mls/hr Q8H IV 10/18/16 23:30 10/20/16 01:23 (Keppra 500 Mg Premix Inj) 100 ml @ 400 mls/hr Q12H IV 10/20/16 00:00 10/19/16 23:04 (Lopressor) 12.5 mg Q12HR PO/TUBE 10/19/16 21:00 10/19/16 20:23 Miscellaneous 1 ea 1 ea UNSCH PRN OTHER 10/19/16 14:45 Acyclovir Sodium 522 mg/Sodium Chloride 100 ml @ 100 mls/hr Q8H IV 10/19/16 20:00 10/20/16 04:14 (Ampicillin Inj/ NS Inj) 100 ml @ 400 mls/hr Q4H IV 10/19/16 20:00 10/20/16 05:14 (Protonix) 40 mg DAILY PO 10/20/16 09:00 (SoluMEDROL INJ) 500 mg Q24H IV 10/20/16 08:00 10/23/16 07:59 Vital Signs / I&O Vital Signs Date Time Temp Pulse Resp B/P Pulse Ox O2 Delivery O2 Flow Rate FiO2 10/20/16 07:20 99 40 10/20/16 04:28 115 26 155/91 99 186/96 10/20/16 04:22 100 40 10/20/16 03:00 88 10/20/16 03:00 98.9 88 26 158/86 99 10/20/16 01:33 100 40 10/19/16 23:56 40 10/19/16 23:00 120 32 151/83 99 10/19/16 23:00 135 10/19/16 22:15 99 40 10/19/16 21:00 113 10/19/16 21:00 113 26 146/94 99 10/19/16 20:42 99 40 10/19/16 20:00 40 10/19/16 19:00 98.6 96 26 132/88 99 126/74 10/19/16 19:00 96 10/19/16 17:12 99 40 10/19/16 16:15 100 100 10/19/16 16:00 98 10/19/16 16:00 98.8 98 16 99/62 99 125/59 10/19/16 12:15 99 40 10/19/16 12:00 98.8 114 27 72/56 99 97/50 10/19/16 12:00 114 I/O 10/19/16 10/19/16 10/19/16 10/20/16 10/20/16 10/20/16 07:00 15:00 23:00 07:00 15:00 23:00 Intake Total 1794 ml 2612 ml 2237 ml Output Total 446 ml 245 ml 480 ml Balance 1348 ml 2367 ml 1757 ml Intake Oral 0 ml 0 ml IV Total 1794 ml 2612 ml 2237 ml Output Urine Total 346 ml 245 ml 380 ml Gastric Drainage Total 100 ml 100 ml # Bowel Movements 0 0 0 Physical Exam GENERAL: Well developed, well nourished. No acute distress. HEENT: Jugular venous pressure is normal. CHEST: Lungs decreased and clear to auscultation bilaterally. Unlabored respiratory effort. CARDIAC: Regular rate and rhythm without S3, S4, or murmur. ABDOMEN: Soft, nontender, no hepatosplenomegaly. Bowel sounds present. EXTREMITIES: No clubbing, cyanosis, or edema. Laboratory Laboratory Tests Test 10/19/16 10/19/16 10/20/16 10:26 15:00 05:27 Total Creatine Kinase 310 U/L Creatine Kinase MB 21.2 NG/ML Creatine Kinase MB % 6.8 % Troponin I 6.10 NG/ML Activated Partial 42.5 SEC 37.4 SEC Thromboplast Time White Blood Count 15.7 TH/MM3 Red Blood Count 3.39 MIL/MM3 Hemoglobin 11.0 GM/DL Hematocrit 33.0 % Mean Corpuscular Volume 97.4 FL Mean Corpuscular Hemoglobin 32.5 PG Mean Corpuscular Hemoglobin 33.3 % Concent Red Cell Distribution Width 13.3 % Platelet Count 257 TH/MM3 Mean Platelet Volume 7.9 FL Sodium Level 144 MEQ/L Potassium Level 3.0 MEQ/L Chloride Level 111 MEQ/L Carbon Dioxide Level 23.1 MEQ/L Anion Gap 10 MEQ/L Blood Urea Nitrogen 18 MG/DL Creatinine 0.77 MG/DL Estimat Glomerular Filtration 76 ML/MIN Rate Random Glucose 158 MG/DL Calcium Level 7.7 MG/DL Assessment and Plan Assessment and Plan NSTEMI- continue conservative measure - likely secondary KS -poor/not a revascularization candidate with AMS Cardiomyopathy- global HK with EF 40-45% - on metoprolol and lisinopril Resp Failure on vent AMS- ok to stop heparin and aspirin for LP, per neuro request Renal Insufficiency- Cait Cruz MD Oct 20, 2016 08:11
[2016-10-20] MEDS: METOPROLOL TARTRATE 50 MG TAB PO/TUBE SCH ×2 (08:33→20:25)
[2016-10-20] MEDS: CHLORHEXIDINE 0.12% (ORAL KIT) 15 ML CUP MT SCH ×2 (08:34→20:26)
[2016-10-20] MEDS: PANTOPRAZOLE SOD 40 MG DELAYED RELEASE TAB PO SCH (09:00)
--- NOTE | 2016-10-20 09:06 | HHI.CCPN ---
Subjective Remarks/Hospital Course Hospital Course: This is a 61-year-old female with an unknown past medical history who was found down and unresponsive by a friend this morning. We do not know when she was last seen normal. We do not know anything about her past medical history. Per EMS, her vital signs were stable. Initially she was a GCS of 3 on scene. Narcan did not improve her mental status. There are significant dried emesis around her mouth. She was brought in by EMS and was intubated. In the emergency department, it was noted that the patient had significant ST elevations in lead V2 through V4. Cardiology was stat consulted. A stat echo was performed. Her labs are remarkable for a troponin of almost 5, but a normal MB ratio. A white count of 19,000. The patient is intubated and obtunded, and unable to provide any history. Critical care medicines were consulted to evaluate and manage her altered mental status, her possible acute coronary syndrome. 1:2: Called to patients bedside due to diaphoresis, oliguria with urine output less than 15 mL per hour for last 2 hours. (previously recorded 750 for last shift, hourly urine output before 2 hours ago unknown). She was tachypneic on mechanical ventilation with respiratory rate in the 30s and was profoundly diaphoretic, peripherally cool. Was able to palpate a pulse but unable to obtain blood pressure measurement. Emergently placed left central venous line bolused NS 250 mL IV and started levophed at 5 mcg/m and SBP was in 130s. Place left femoral art line and placed on Gamal Trac monitoring and CVP monitoring. Bedside cardiac ultrasound demonstrated LV dysfunction but RV appeared dynamic with inadequate filling. No significant pericardial effusion. EKG with anterior lateral ST elevation as seen previously and T wave inversions. CVP 6, CI 2.7 SVV 20, poor skin turgor, dry mucous membranes, collapsible IJ pointed towards volume responsiveness despite elevated BNP and diagnosis of PA. She responded to initial NS 250 bolus at which point levophed was weaned completely off. Started on gentle fluids with LR 100 ml/hr and UOP subsequently 50 ml/hr. CBC demonstrates stable hgb without evidence of bleeding. Being managed conservatively for subacute STEMI with ASA/heparin drip. Troponin increased, CK fraction remains normal. Subjective: 1/2: worsening instability overnight, but clinically appears to be volume responsive. troponins uptrending. still persistently GCS 6 and significantly encephalopathic. health care technician at bedside for portable EEG, prelim possible ictal activity. 10/20: persistent encephalopathy. hemodynamics have stabilized. now withdraws x 4 , does not open eyes. Dr. Leal added acyclovir and ampicillin last night. recommends LP, which I agree with, now that we have stabilized out from a cardiovascular standpoint. heparin drip on hold. Objective Vital Signs Date Time Temp Pulse Resp B/P Pulse Ox O2 Delivery O2 Flow Rate FiO2 10/20/16 07:20 99 40 10/20/16 04:28 115 26 155/91 186/96 10/20/16 03:00 98.9 10/18/16 10:39 Ventilator Intake and Output 10/19/16 10/19/16 10/20/16 08:00 16:00 00:00 Intake Total 1794 ml 2612 ml Output Total 446 ml 245 ml Balance 1348 ml 2367 ml Result Diagram: 10/20/16 0527 10/20/16 0527 Other Results Microbiology Date/Time Procedure Status Source Growth 10/18/16 10:50 Urine Culture - Final Complete Urine Catheterized Urine NO GROWTH IN 48 HOURS. Objective Remarks GENERAL: Middle-aged female, appears older than stated age, intubated, sedated, critically ill. HEENT: Normocephalic. Atraumatic. Pupils 3-4 mm, minimally reactive, equal, conjugate. Mucous membranes are moist NECK: Trachea is midline. There is no JVD. Orotracheally intubated CHEST: Equal chest rise. Clear to auscultation. CARDIOVASCULAR: tachycardic rate, regular rhythm. S1 and S2 without appreciable murmurs. ABDOMEN: Common nontender, nondistended. No guarding. MUSCULOSKELETAL: No peripheral edema. Distal pulses 2+. NEUROLOGICAL: RASS -3. CAM +. GCS 7 ([id number]). Moves all extremity spontaneously. withdraws to painful stimuli in all 4 extremities. not purposeful. +cough +gag +corneals. Does not open eyes to painful stimuli. A/P Assessment and Plan Assessment: This is a 61-year-old female with a reported history in the medical record of alcoholic cirrhosis, hypothyroidism, chronic morphine use who was found down for an unknown period of time. Her course has been complicated by acute coronary syndrome and myocardial infarction and now persistent encephalopathy. Agree with the plan for LP today. Agree with added acyclovir and ampicillin. We will hold heparin infusion and aspirin today. we will repeat PTT at noon, and if it is baseline, will proceed with LP. She remains very critically ill. Active problems: Possible seizures Chronic opiate use Acute coronary syndrome Acute encephalopathyunknown type Alcoholic Cirrhosis Acute hypoxic and hypercarbic respiratory failure Plan: --q1h neuro checks --ativan 2mg iv prn for any witnessed seizure activity --keppra 500mg iv q12h -- neurology following: Dr. Leal -- 10/19 MRI brain: no acute findings. -- EEG 10/19: epileptiform discharges with spikes, no overt ictal activity. -- RASS goal 0. -- propofol and fentanyl as needed for goal RASS. -- hold long-acting sedating meds. -- LP today. trop's downtrending. ok to stop checking. --ASA 325mg daily, currently on hold for LP, will resume after. --heparin infusion on hold for LP Goal heart rate less than 90 Cardiology following: Dr. Cruz [facility] more stable --continue LR @ 125cc/hr mivf. -- metop 50mg po q8h -- metop 5mg iv q4h prn for HR > 90 or SBP > 160 --Vent bundle --low tidal volume ventilation targeting 6cc/kg IBW --wean fio2 for goal Spo2 > 90% --does not meet SBT criteria today given encephalopathy. --nebs q6h and q2n prn --HOB at 30deg --start TF, Jevity 1.5, goal of 60. --Nutrition consult --BMP daily --thiamine 100mg iv daily --ammonia 35. unlikely to be the cause of her encephalopathy, but will start Lactulose 30mg po qid as a trial to see if this improves mentation. blood, sputum, urine cultures 10/18: pending. Continue vancomycin with pharmacy dosing Rocephin 2 g IV every 12 for meningitic empiric coverage Flagyl to cover anaerobes in the setting of probable aspiration --ampicillin and acyclovir to cover listeria and HSV empirically. Daily CBC, BMP Strict I's and O's with Garces catheter placement for accurate monitoring SCDs for DVT prophylaxis, Protonix for GI prophylaxis. She remains critically ill. This patient remains critically ill with one or more organ systems which are or may become a threat to life. I have spent in excess of 39 minutes discontinuously in the care and management of this patient. This time is exclusive of procedures, and includes, but is not limited to, evaluation of the patient, review of the medical record, discussions with family, consultants, nursing staff, or respiratory therapy, and documentation in the medical record. Edgardo Thakur MD Oct 20, 2016 09:05
[2016-10-20] MEDS: SODIUM CHLORIDE 0.9% FLUSH 5 ML FLUSH IV FLUSH SCH ×2 (10:33→20:26)
[2016-10-20 10:45] LABS: BLOOD GAS BASE EXCESS -2.9 mmol/L (-2-2); BLOOD GAS CARBOXYHEMOGLOBIN 1.3 % (0-4); BLOOD GAS HCO3 20 mmol/L (22-26); BLOOD GAS METHEMOGLOBIN 1.1 % (0-2); BLOOD GAS O2 HGB SATURATION 98 % (90-100); BLOOD GAS OXYGEN CONTENT 14.9 Vol % (12.0-20.0); BLOOD GAS PCO2 25 mmHg (38-42); BLOOD GAS PO2 197 mmHg (61-120); BLOOD GAS TOTAL HGB 10.5 G/DL (12.0-16.0); TEMP CORR TO 98.6
[2016-10-20 10:46] LABS: CRITICAL VALUE YES; DRAW SITE ART LINE; FIO2 40 %; OXYGEN DEVICE VENTILATOR; VENT SETTINGS PRVC/AC
[2016-10-20 10:47] LABS: STAT YES
[2016-10-20] MEDS: LACTULOSE SYRUP 20 GM/30 ML CUP PO SCH ×4 (11:15→20:25)
[2016-10-20] MEDS: POLYETHYLENE GLYCOL 17 GM PKG PO SCH ×2 (11:15→20:25)
[2016-10-20] MEDS: DOCUSATE SODIUM 50 MG/SENNA 8.6 MG TAB PO SCH ×2 (11:16→20:25)
--- NOTE | 2016-10-20 11:16 | PD.CONS ---
Consult Service Palliative Care. . Consult Requested By Dr. Thakur . Primary Care Physician Unknown . Reason for Consultation a. To assist with evaluation and management of symptoms including: pain, dyspnea b. To assist medical decision maker(s) with: better understanding of current medical conditions; weighing benefits/burdens of medical treatment options; making medical treatment decisions. . (STEPHANIE BENTON) HPI History of Present Illness Ms. Stanton is a 61-year-old female with past medical history of alcoholic liver cirrhosis, hepatitis C, hypothyroidism. Patient was previously on [place] [facility] hospice for liver failure in 2009. No written advanced directives found in hospice records. Patient presented to [facility] ED in [place] on 10/18/16 for evaluation of altered mental status. Patient was found unresponsive in her home by a friend who called EMS. It was unknown when she was last seen normal. Per EMS, the patient's vital signs were stable, GCS of 3 on scene. There was significant dried emesis around the patient's mouth and in her hair. Narcan was administered without neurological improvement. Patient was emergently intubated. Additional findings while in the ED include: * Vital signs: Pulse 125, respirations 24, BP 180/90, rectal temperature 97.6 * WBC: 19.6, hemoglobin 16.6, hematocrit 49.2, platelets 502, neutrophils 87.5% * Sodium: 131, potassium 4.4, chloride 105, glucose 142 * BUN: 13, creatinine 1.3 * Total bilirubin: 0.6, direct bilirubin 0.1, indirect bilirubin 0.5, AST 49, ALT 35, alkaline phosphatase 101 * Total creatine kinase: 397 * CK-MB: 13.9 * CK-MB%: 3.5 * Troponin: 4.80 * BNP: 340 * Total protein: 7.6, albumin 3.9 * Lipase: 145 * PT: 11.1, INR 1.0, APTT 26.6 * Toxicology: ethyl alcohol <3, + benzodiazepines * Urinalysis: Positive for occult blood, bacteria and mucus. * Urine culture: Pending. * Chest x-ray: Tiny bilateral pleural effusions * EKG: Sinus rhythm with ST elevations in leads V2, V3, V4. No reciprocal changes were seen. Given the patient's altered mental status and inability indicate whether or not she was experiencing chest pain, STEMI alert was activated. CT of the brain was negative. Aorta CTA showed no evidence for aortic dissection. Patient was subsequently started on a heparin bolus and drip. On CT patient was noted to have a lower lobe pulmonary infiltrate possibly secondary to aspiration given the emesis on her face and hair. Cardiology, Dr. Cruz, was consulted. Given the patient's clinical picture, recommendations were made to obtain a troponin and echocardiogram as the patient's EKG did not show any evolving changes, no reciprocal changes and is not classic for STEMI. Echocardiogram with EF 40% to 45%. Troponin elevated 4.80, 5.52, 9.08 sequentially. Patient was admitted for further evaluation and medical management. On 10/19/15 patient had decreased urine output, unable to palpate a pulse but able to obtain a blood pressure measurement. A left central venous line was emergently placed for IV bolus and pressor support started. Placed left femoral art line, placed on Gamal Trac monitoring and CVP monitoring. Cardiac ultrasound, at bedside demonstrated LV dysfunction but RV appeared dynamic with inadequate filling, no significant pericardial effusion. EKG with anterior lateral ST elevation as seen previously and T wave inversions. The patient responded to the normal saline bolus and Levophed was weaned. Troponin remains elevated. She is not a candidate for revascularization per cardiology. Patient remains encephalopathic off sedation. Dr. Su, neurology was consulted for encephalopathy and possible seizure. EEG showed sharp waves not quite PLEDs but increased epileptiform or increased seizure risk , herpes encephalitis could be entertained. Patient was started on acyclovir. LP recommended, aspirin and heparin have been stopped for LP. Palliative Care was consulted to assist with symptom management and to discuss with the patient/family the benefits and burdens of her current illnesses and the options regarding future care. . (STEPHANIE BENTON) Review of Systems ROS Limitations: Intubated, Altered Mental Status Constitutional: COMPLAINS OF: Fatigue, Change in appetite, Generalized weakness Hematologic/Lymphatics: COMPLAINS OF: Bruising (STEPHANIE BENTON) Past Family Social History Coded Allergies: *MDRO Multi-Drug Resistant Organism (Verified Adverse Reaction, Unknown, MRSA, 11/09/16) MRSA (sputum)-10/19/16 MRSA PCR Screen POSITIVE - 10/23/16 Past Medical History Alcoholic cirrhosis Liver failure Hepatitis C History of EtOH abuse and polysubstance abuse Hypothyroidism Asthma . Past Surgical History Rectal fistula repair 1980 Right wrist surgery Carpal tunnel surgery Tonsillectomy . Reported Medications No known medications on admission as patient was unresponsive. Family lives out of town. . Current Medications Medications (Trade) Dose Ordered Sig/Renita Route Start Time Stop Time Status Last Admin Magnesium Oxide 800 mg 800 mg UNSCH PRN PO 10/18/16 11:00 Magnesium Sulfate 4 gm/Sodium Chloride 100 ml @ 50 mls/hr UNSCH PRN IV 10/18/16 11:00 Magnesium Sulfate 2 gm/Sodium Chloride 100 ml @ 50 mls/hr UNSCH PRN IV 10/18/16 11:00 Potassium Chloride 100 ml @ 50 mls/hr Q2H PRN IV 10/18/16 11:00 Potassium Chloride 100 ml @ 50 mls/hr Q2H PRN IV 10/18/16 11:00 Potassium Chloride 100 ml @ 50 mls/hr Q2H PRN IV 10/18/16 11:00 (KCl 40 Meq Premix Inj) 100 ml @ 25 mls/hr UNSCH PRN IV 10/18/16 11:00 (KCl 40 Meq/30 ml Liq) 40 meq UNSCH PRN PO/TUBE 10/18/16 11:00 (KCl 40 Meq/30 ml Liq) 40 meq UNSCH PRN PO/TUBE 10/18/16 11:00 (K-Phos) 2,000 mg Q4H PRN PO 10/18/16 11:00 Potassium Phosphate 2000 mg 2,000 mg UNSCH PRN PO/TUBE 10/18/16 11:00 Potassium Phosphate 30 mmol/ Sodium Chloride 260 ml @ 42 mls/hr UNSCH PRN IV 10/18/16 11:00 (Sodium Phosphate Inj/NS 250 ml Inj) 250 ml @ 42 mls/hr UNSCH PRN IV 10/18/16 11:00 (D50w (Vial) Inj) 25 ml UNSCH PRN IV PUSH 10/18/16 11:00 Insulin Human Regular 1 1 Q6HR SQ 10/18/16 12:00 10/20/16 06:47 (Diprivan 1000 Mg/100ml Inj) 100 ml @ 0 mls/hr TITRATE IV 10/18/16 11:00 10/20/16 01:40 (NS Flush) 2 ml UNSCH PRN IV FLUSH 10/18/16 11:00 (NS Flush) 2 ml BID IV FLUSH 10/18/16 21:00 10/19/16 20:24 (Zofran Inj) 4 mg Q6H PRN IV 10/18/16 11:00 (Litzy-Colace) 2 tab BID PO 10/18/16 21:00 10/19/16 20:23 Miscellaneous Information 1 Q361D XX 10/18/16 11:00 (Chlorhexidine 2% Cloth) 3 pack Taper DAILY@04 TOP 10/19/16 04:00 10/15/17 03:59 10/20/16 04:00 (Chlorhexidine 2% Cloth) 3 pack UNSCH PRN TOP 10/18/16 11:00 (Peridex 0.12% Liq) 15 ml BID@08,20 MT 10/18/16 20:00 10/20/16 08:34 Polyethylene Glycol 17 gm 17 gm BID PO 10/18/16 21:00 10/19/16 20:23 Pharmacy Profile Note 0 ml @ 0 mls/hr UNSCH OTHER 10/18/16 15:15 Ceftriaxone Sodium 2000 mg/ Sodium Chloride 100 ml @ 200 mls/hr Q12H IV 10/18/16 17:00 10/20/16 05:14 Metronidazole 100 ml @ 100 mls/hr Q6H IV 10/18/16 16:00 10/20/16 04:14 (Vancomycin Inj/ NS 250 ml Inj) 250 ml @ 250 mls/hr Q24H IV 10/19/16 11:00 10/19/16 12:09 Miscellaneous Information SPECIFIC LAB TO BE DRAWN:VANCO TROUGH DATE... ONCE ONCE XX 10/21/16 10:45 10/21/16 10:46 (Levophed-Dextrose Drip) 250 ml @ 0 mls/hr TITRATE IV 10/18/16 21:15 10/19/16 05:53 Terbutaline Sulfate 1 mg 1 mg UNSCH PRN SQ 10/18/16 21:15 Fentanyl Citrate 250 ml @ 0 mls/hr TITRATE IV 10/18/16 21:30 Lactated Ringer's 1,000 ml @ 125 mls/hr Q8H IV 10/18/16 23:30 10/20/16 01:23 (Keppra 500 Mg Premix Inj) 100 ml @ 400 mls/hr Q12H IV 10/20/16 00:00 10/19/16 23:04 Miscellaneous 1 ea 1 ea UNSCH PRN OTHER 10/19/16 14:45 Acyclovir Sodium 522 mg/Sodium Chloride 100 ml @ 100 mls/hr Q8H IV 10/19/16 20:00 10/20/16 04:14 (Ampicillin Inj/ NS Inj) 100 ml @ 400 mls/hr Q4H IV 10/19/16 20:00 10/20/16 08:34 (Protonix) 40 mg DAILY PO 10/20/16 09:00 (SoluMEDROL INJ) 500 mg Q24H IV 10/20/16 08:00 10/23/16 07:59 (Lopressor) 50 mg Q12HR PO/TUBE 10/20/16 09:00 10/20/16 08:33 (Lopressor Inj) 5 mg Q4H PRN IV PUSH 10/20/16 09:00 (Lactulose Liq) 30 ml QID PO 10/20/16 09:00 . Family History Grandmother had breast cancer. Mother had COPD and heart disease. Father's history positive for Parkinson's disease. Daughter with PCOS. . Substance Use Tobacco: currently 1/2 PPD. Has smoked most all her life. Alcohol: Prior alcohol use from old admissions report she historically drank about a pint of vodka / day. Prescription med abuse: unknown. Illicits: unknown. . Psychosocial History Lives in [place]. 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 . Spiritual/Cultural Factors Scientologist galen. . (STEPHANIE BENTON) Living Will: Never completed Health Care Surrogate: Never completed Durable Power of Body Maker: Never completed Ethical and Legal Issues No known written advanced directives. According to [place] statutes health care prxy decision making falls to the majority of adult children. She has 2 daughters and 1 son (Matthew Leon Desirae). . (STEPHANIE BENTON) Physical Exam Vital Signs Date Time Temp Pulse Resp B/P Pulse Ox O2 Delivery O2 Flow Rate FiO2 10/20/16 07:20 99 40 10/20/16 04:28 115 26 155/91 99 186/96 10/20/16 04:22 100 40 10/20/16 03:00 88 10/20/16 03:00 98.9 88 26 158/86 99 10/20/16 01:33 100 40 10/19/16 23:56 40 10/19/16 23:00 120 32 151/83 99 10/19/16 23:00 135 10/19/16 22:15 99 40 10/19/16 21:00 113 10/19/16 21:00 113 26 146/94 99 10/19/16 20:42 99 40 10/19/16 20:00 40 10/19/16 19:00 98.6 96 26 132/88 99 126/74 10/19/16 19:00 96 10/19/16 17:12 99 40 10/19/16 16:15 100 100 10/19/16 16:00 98 10/19/16 16:00 98.8 98 16 99/62 99 125/59 10/19/16 12:15 99 40 10/19/16 12:00 98.8 114 27 72/56 99 97/50 10/19/16 12:00 114 10/19/16 10/20/16 19:00 07:00 Intake Total 2612 ml 2237 ml Output Total 245 ml 480 ml Balance 2367 ml 1757 ml Intake Oral 0 ml IV Total 2612 ml 2237 ml Output Urine Total 245 ml 380 ml Gastric Drainage Total 100 ml # Bowel Movements 0 0 Exam CONSTITUTIONAL/GENERAL: This is an adequately nourished patient, in no apparent distress. TUBES/LINES/DRAINS:ETT, OG, PIVs, Garces, bilateral soft wrist restraints, SCDs SKIN: No jaundice, rashes, or lesions. Ecchymoses on upper extremities. No wounds seen anteriorly. Skin temperature appropriate. Not diaphoretic. HEAD: Atraumatic. Normocephalic. EYES: Pupils equal and round and reactive. ENT: Unable to adequately assess hearing. Nose without bleeding or purulent drainage. Throat difficult to visualize due to tubes. NECK: Trachea midline. CARDIOVASCULAR: tachycardic. No JVD. Peripheral pulses symmetric. RESPIRATORY/CHEST: Symmetric, unlabored respirations on vent. Clear to auscultation. GASTROINTESTINAL: Abdomen soft, non-tender, mildly distended. No guarding. Bowel sounds present. GENITOURINARY: Without palpable bladder distension. Garces catheter in place. MUSCULOSKELETAL: Extremities without clubbing, cyanosis, or edema. No mottling or clubbing. LYMPHATICS: No palpable cervical or supraclavicular adenopathy. NEUROLOGICAL: Sedated in prep for LP. PSYCHIATRIC: Sedated in prep for LP. . (STEPHANIE BENTON) Diagnostic Tests Laboratory Laboratory Tests Test 10/18/16 10/18/16 10/18/16 10/18/16 09:35 10:30 10:50 15:00 White Blood Count 19.6 TH/MM3 (4.0-11.0) Red Blood Count 5.07 MIL/MM3 (4.00-5.30) Hemoglobin 16.6 GM/DL (11.6-15.3) Bedside Hemoglobin 18.0 G/DL (12.0-17.0) Hematocrit 49.2 % (35.0-46.0) Bedside Hematocrit 53.0 % (38.0-51.0) Mean Corpuscular Volume 97.1 FL (80.0-100.0) Mean Corpuscular Hemoglobin 32.8 PG (27.0-34.0) Mean Corpuscular Hemoglobin 33.7 % Concent (32.0-36.0) Red Cell Distribution Width 13.3 % (11.6-17.2) Platelet Count 502 TH/MM3 (150-450) Mean Platelet Volume 7.3 FL (7.0-11.0) Neutrophils (%) (Auto) 87.5 % (16.0-70.0) Lymphocytes (%) (Auto) 5.5 % (9.0-44.0) Monocytes (%) (Auto) 5.6 % (0.0-8.0) Eosinophils (%) (Auto) 0.2 % (0.0-4.0) Basophils (%) (Auto) 1.2 % (0.0-2.0) Neutrophils # (Auto) 17.2 TH/MM3 (1.8-7.7) Lymphocytes # (Auto) 1.1 TH/MM3 (1.0-4.8) Monocytes # (Auto) 1.1 TH/MM3 (0-0.9) Eosinophils # (Auto) 0.0 TH/MM3 (0-0.4) Basophils # (Auto) 0.2 TH/MM3 (0-0.2) CBC Comment DIFF FINAL Differential Comment Prothrombin Time 11.1 SEC (9.8-11.6) Prothromb Time International 1.0 RATIO Ratio Activated Partial 26.6 SEC Thromboplast Time (24.3-30.1) Bedside Sodium 131 MMOL/L (138-146) Bedside Potassium 4.4 MMOL/L (3.5-4.9) Bedside Chloride 105 MMOL/L (98-109) Bedside Blood Urea Nitrogen 13 MG/DL (8-26) Bedside Creatinine 1.3 MG/DL (0.6-1.0) Bedside Glucose 142 MG/DL (60-95) Total Bilirubin 0.6 MG/DL (0.2-1.0) Direct Bilirubin 0.1 MG/DL (0.0-0.2) Indirect Bilirubin 0.5 MG/DL (0.0-0.8) Aspartate Amino Transf 49 U/L (15-37) (AST/SGOT) Alanine Aminotransferase 35 U/L (10-53) (ALT/SGPT) Alkaline Phosphatase 103 U/L (45-117) Total Creatine Kinase 397 U/L (26-192) Creatine Kinase MB 13.9 NG/ML (0.5-3.6) Creatine Kinase MB % 3.5 % (0.0-4.0) Troponin I 4.80 NG/ML (0.02-0.05) B-Type Natriuretic Peptide 340 PG/ML (0-100) Total Protein 7.6 GM/DL (6.4-8.2) Albumin 3.9 GM/DL (3.4-5.0) Lipase 145 U/L (73-393) Thyroid Stimulating Hormone 0.269 uIU/ML 3rd Gen (0.358-3.740) Salicylates Level 4.5 MG/DL (2.8-20.0) Acetaminophen Level LESS THAN 2.0 MCG/ML (10.0-30.0) Ethyl Alcohol Level LESS THAN 3 MG/DL (0-5) Blood Gas Puncture Site RT RADIAL Blood Gas Patient Temperature 98.6 Blood Gas HCO3 18 mmol/L (22-26) Blood Gas Base Excess -7.4 mmol/L (-2-2) Blood Gas Oxygen Saturation 96 % (90-100) Arterial Blood pH 7.32 (7.380-7.420) Arterial Blood Partial 35 mmHg (38-42) Pressure CO2 Arterial Blood Partial 250 mmHG Pressure O2 (61-120) Arterial Blood Oxygen Content 22.3 Vol % (12.0-20.0) Arterial Blood 1.8 % (0-4) Carboxyhemoglobin Arterial Blood Methemoglobin 1.9 % (0-2) Blood Gas Hemoglobin 16.2 G/DL (12.0-16.0) Oxygen Delivery Device VENTILATOR Blood Gas Ventilator Setting AC14/500/PEEP5 Blood Gas Inspired Oxygen 50 % Urine Color LIGHT-YELLOW (YELLW/STRAW) Urine Turbidity CLEAR (CLEAR) Urine pH 6.5 (5.0-8.5) Urine Specific [place] 1.050 (1.002-1.035) Urine Protein 30 mg/dL (NEG-TRACE) Urine Glucose (UA) NEG mg/dL (NEG) Urine Ketones TRACE mg/dL (NEG) Urine Occult Blood SMALL (NEG) Urine Nitrite NEG (NEG) Urine Bilirubin NEG (NEG) Urine Urobilinogen LESS THAN 2.0 MG/DL (LESS THAN 2.0) Urine Leukocyte Esterase NEG (NEG) Urine RBC 3 /hpf (0-3) Urine WBC 5 /hpf (0-5) Urine Squamous Epithelial 1 /hpf (0-5) Cells Urine Bacteria RARE /hpf (NONE) Urine Hyaline Casts 7 /lpf (RARE) Urine Mucus FEW /lpf (OCC) Microscopic Urinalysis Comment CATH-CULTURE IND Urine Opiates Screen NEG (NEG) NEG (NEG) Urine Barbiturates Screen NEG (NEG) NEG (NEG) Urine Amphetamines Screen NEG (NEG) NEG (NEG) Urine Benzodiazepines Screen POS (NEG) POS (NEG) Urine Cocaine Screen NEG (NEG) NEG (NEG) Urine Cannabinoids Screen NEG (NEG) NEG (NEG) Test 10/18/16 10/18/16 10/18/16 10/18/16 15:10 19:18 21:56 22:55 Total Creatine Kinase 889 U/L 707 U/L (26-192) (26-192) Creatine Kinase MB 22.1 NG/ML 25.5 NG/ML (0.5-3.6) (0.5-3.6) Creatine Kinase MB % 2.5 % (0.0-4.0) 3.6 % (0.0-4.0) Troponin I 5.52 NG/ML 9.08 NG/ML (0.02-0.05) (0.02-0.05) Activated Partial 54.7 SEC 75.2 SEC Thromboplast Time (24.3-30.1) (24.3-30.1) Lactic Acid Level 3.2 mmol/L 2.6 mmol/L (0.4-2.0) (0.4-2.0) Ammonia 35 MCMOL/L (11-32) Free Thyroxine 1.26 NG/DL (0.76-1.46) White Blood Count 18.8 TH/MM3 (4.0-11.0) Red Blood Count 4.99 MIL/MM3 (4.00-5.30) Hemoglobin 16.3 GM/DL (11.6-15.3) Hematocrit 48.3 % (35.0-46.0) Mean Corpuscular Volume 96.8 FL (80.0-100.0) Mean Corpuscular Hemoglobin 32.7 PG (27.0-34.0) Mean Corpuscular Hemoglobin 33.8 % Concent (32.0-36.0) Red Cell Distribution Width 13.5 % (11.6-17.2) Platelet Count 465 TH/MM3 (150-450) Mean Platelet Volume 7.9 FL (7.0-11.0) Neutrophils (%) (Auto) 87.7 % (16.0-70.0) Lymphocytes (%) (Auto) 6.6 % (9.0-44.0) Monocytes (%) (Auto) 5.3 % (0.0-8.0) Eosinophils (%) (Auto) 0.1 % (0.0-4.0) Basophils (%) (Auto) 0.3 % (0.0-2.0) Neutrophils # (Auto) 16.5 TH/MM3 (1.8-7.7) Lymphocytes # (Auto) 1.2 TH/MM3 (1.0-4.8) Monocytes # (Auto) 1.0 TH/MM3 (0-0.9) Eosinophils # (Auto) 0.0 TH/MM3 (0-0.4) Basophils # (Auto) 0.1 TH/MM3 (0-0.2) CBC Comment DIFF FINAL Differential Comment Prothrombin Time 12.4 SEC (9.8-11.6) Prothromb Time International 1.1 RATIO Ratio Sodium Level 142 MEQ/L (136-145) Potassium Level 3.4 MEQ/L (3.5-5.1) Chloride Level 108 MEQ/L (98-107) Carbon Dioxide Level 19.1 MEQ/L (21.0-32.0) Anion Gap 15 MEQ/L (5-15) Blood Urea Nitrogen 18 MG/DL (7-18) Creatinine 1.36 MG/DL (0.50-1.00) Estimat Glomerular Filtration 40 ML/MIN (>89) Rate Random Glucose 127 MG/DL (74-106) Calcium Level 8.8 MG/DL (8.5-10.1) Total Bilirubin 0.7 MG/DL (0.2-1.0) Aspartate Amino Transf 83 U/L (15-37) (AST/SGOT) Alanine Aminotransferase 42 U/L (10-53) (ALT/SGPT) Alkaline Phosphatase 88 U/L (45-117) Total Protein 6.5 GM/DL (6.4-8.2) Albumin 3.2 GM/DL (3.4-5.0) B-Type Natriuretic Peptide 1551 PG/ML (0-100) Blood Gas Puncture Site CENTRAL LINE Blood Gas Patient Temperature 98.6 Venous Blood pH 7.26 (7.360-7.400) Venous Blood Partial Pressure 40 mmHg (44-48) CO2 Venous Blood Partial Pressure 41 mmHg (35-40) O2 Venous Blood HCO3 17 mmol/L (22-26) Venous Blood Oxygen Saturation 63 % (70-76) Venous Blood Oxygen Content 14.9 Vol % (9.0-17.0) Venous Blood Base Excess -8.5 mmol/L (-2-2) Oxygen Delivery Device VENTILATOR Blood Gas Ventilator Setting [facility]/AC/500/ Blood Gas Inspired Oxygen 40 % Test 10/19/16 10/19/16 10/19/16 10/19/16 04:10 08:00 10:26 15:00 White Blood Count 18.3 TH/MM3 (4.0-11.0) Red Blood Count 4.39 MIL/MM3 (4.00-5.30) Hemoglobin 14.4 GM/DL (11.6-15.3) Hematocrit 43.1 % (35.0-46.0) Mean Corpuscular Volume 98.2 FL (80.0-100.0) Mean Corpuscular Hemoglobin 32.8 PG (27.0-34.0) Mean Corpuscular Hemoglobin 33.4 % Concent (32.0-36.0) Red Cell Distribution Width 13.5 % (11.6-17.2) Platelet Count 357 TH/MM3 (150-450) Mean Platelet Volume 7.7 FL (7.0-11.0) Activated Partial 123.2 SEC 54.1 SEC 42.5 SEC Thromboplast Time (24.3-30.1) (24.3-30.1) (24.3-30.1) Sodium Level 146 MEQ/L (136-145) Potassium Level 3.6 MEQ/L (3.5-5.1) Chloride Level 111 MEQ/L (98-107) Carbon Dioxide Level 19.5 MEQ/L (21.0-32.0) Anion Gap 16 MEQ/L (5-15) Blood Urea Nitrogen 17 MG/DL (7-18) Creatinine 1.07 MG/DL (0.50-1.00) Estimat Glomerular Filtration 52 ML/MIN (>89) Rate Random Glucose 135 MG/DL (74-106) Lactic Acid Level 3.0 mmol/L (0.4-2.0) Calcium Level 7.9 MG/DL (8.5-10.1) Total Creatine Kinase 496 U/L 310 U/L (26-192) (26-192) Creatine Kinase MB 28.1 NG/ML 21.2 NG/ML (0.5-3.6) (0.5-3.6) Creatine Kinase MB % 5.7 % (0.0-4.0) 6.8 % (0.0-4.0) Troponin I 6.51 NG/ML 6.10 NG/ML (0.02-0.05) (0.02-0.05) Test 10/20/16 05:27 White Blood Count 15.7 TH/MM3 (4.0-11.0) Red Blood Count 3.39 MIL/MM3 (4.00-5.30) Hemoglobin 11.0 GM/DL (11.6-15.3) Hematocrit 33.0 % (35.0-46.0) Mean Corpuscular Volume 97.4 FL (80.0-100.0) Mean Corpuscular Hemoglobin 32.5 PG (27.0-34.0) Mean Corpuscular Hemoglobin 33.3 % Concent (32.0-36.0) Red Cell Distribution Width 13.3 % (11.6-17.2) Platelet Count 257 TH/MM3 (150-450) Mean Platelet Volume 7.9 FL (7.0-11.0) Activated Partial 37.4 SEC Thromboplast Time (24.3-30.1) Sodium Level 144 MEQ/L (136-145) Potassium Level 3.0 MEQ/L (3.5-5.1) Chloride Level 111 MEQ/L (98-107) Carbon Dioxide Level 23.1 MEQ/L (21.0-32.0) Anion Gap 10 MEQ/L (5-15) Blood Urea Nitrogen 18 MG/DL (7-18) Creatinine 0.77 MG/DL (0.50-1.00) Estimat Glomerular Filtration 76 ML/MIN (>89) Rate Random Glucose 158 MG/DL (74-106) Calcium Level 7.7 MG/DL (8.5-10.1) (STEPHANIE BENTON) Result Diagram: 10/20/1652610/20/16 05 Microbiology Microbiology Date/Time Procedure Status Source Growth 10/18/16 10:50 Urine Culture - Final Complete Urine Catheterized Urine NO GROWTH IN 48 HOURS. 10/18/16 15:10 Aerobic Blood Culture - Preliminary Resulted Blood Peripheral NO GROWTH IN 1 DAY 10/18/16 15:10 Anaerobic Blood Culture - Preliminary Resulted Blood Peripheral NO GROWTH IN 1 DAY 10/18/16 15:20 Aerobic Blood Culture - Preliminary Resulted Blood Peripheral NO GROWTH IN 1 DAY 10/18/16 15:20 Anaerobic Blood Culture - Preliminary Resulted Blood Peripheral NO GROWTH IN 1 DAY 10/19/16 04:22 Gram Stain - Final Resulted Sputum Endotracheal 10/19/16 04:22 Sputum Culture Resulted Sputum Endotracheal Pending . Imaging Last Impressions Chest X-Ray 10/19/16 0600 Signed Impressions: Service Date/Time: Wednesday, October 19, 2016 05:22 - CONCLUSION: 1. Lines and tubes. 2. No infiltrate left lower lobe. 3. Tiny effusions. Sandoval Purvis Jr., MD Brain MRI 10/19/16 0000 Signed Impressions: Service Date/Time: Wednesday, October 19, 2016 16:31 - CONCLUSION: Noncontrast MRI appearance of the brain within normal limits for a patient this age. No acute intracranial abnormality is demonstrated. Sinus disease noted. Lucas Montes MD Aorta CTA 10/18/16 0945 Signed Impressions: Service Date/Time: Tuesday, October 18, 2016 10:08 - CONCLUSION: 1. No evidence for aortic dissection. 2. Tree in bud infiltrate left lower lobe. Evangelist Hurley MD Head CT 10/18/16 0940 Signed Impressions: Service Date/Time: Tuesday, October 18, 2016 10:00 - CONCLUSION: Normal examination. Evangelist Hurley MD . Procedures 10/18/16: Intubation 10/18/16: NG tube placement 10/19/16: Left IJ central venous access 10/19/16: Left femoral arterial catheter placement . (STEPHANIE BENTON) Patient/Family Conference Present at Family Conference: Spoke with all 3 children (Yola, Carolyn and Matthew) via conference call. Family Conference Time (mins): 45 Family Conference Location: Telephone Issues Discussed: * Palliative care role, purpose, approach * Additional medical, psychosocial, and spiritual history * Patients general health, functional status, and cognitive changes in the months leading up to the current hospitalization * Patient/family understanding of the current medical problems * Patient/family understanding of prognosis * Patients goals of care as best understood from advance directives and/or conversations and/or values * Current medical treatment options and benefits/burdens of those options * Likely scenarios comparing ongoing aggressive care with a transition to comfort measures only * Questions answered to the best of my ability * Palliative care contact information provided (STEPHANIE BENTON) Assessment and Plan Disease Oriented Problem List: (1) Leukocytosis (2) ST elevation LA (STEMI) (3) Sepsis (4) Altered mental status (5) Elevated troponin (6) Left lower lobe pneumonia Symptom Scale: (1) Pain 0-10 Scale: Unable to quantify (2) Dyspnea 0-10 Scale: Unable to quantify Pertinent Non-Medical Issues Psychosocial:Patient was born in [place]. She lived in [place] and [place]. She was but is now . She has 3 adult children. 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 Spiritual: Scientologist galen. Legal: Per [place] statutes, in the absence of written advanced directives healthcare proxy decision making would fall to the majority of the patient's 3 adult children. Ethical issues impacting care: No known ethical issues impacting care at this time. . Important Contacts * Yola Molian(daughter): #[phone]-- wishes to be involved in medical decision making, serving as HCP for patient. * Matthew Molina (son): #[phone] - defers decision making at this time. Will be available to support Yola for decisions. * Carolyn Molina (daughter): #[phone] -- defers decision making at this time. Will be available to support Yola for decisions. * Sole Rhodes, friend: [phone] family is okay with her getting medical updates. . Prognosis Patient with history of liver disease admitted with STEMI not a candidate for revascularization, now with encephalopathy, LP pending difficult to prognosticate at this time. Will obtain additional information and continue to evaluate for better prognostication. . Code Status: No Code Plan * No known written advanced directives. According to [place] statutes health care prxy decision making falls to the majority of adult children. She has 2 daughters and 1 son (Matthew Leon, Yola). Matthew and Carolyn defer decision making at this time, will be available to support/ assist Yola with medical decisions as needed. Yola Molina, daughter will be serving as HCP decision maker. * NO CODE - DNR/DNI (if extubated family would not want her reintubated). * Desires continued aggressive care including LP for now. Family elects NO CODE based on patients previously stated wishes. * Palliative care number provided. * Palliative care will continue to follow to assist with symptom management and further clarification of treatment goals as needed. . (STEPHANIE BENTON) Thank you for the opportunity to participate in the care of Ms. Stanton. (STEPHANIE BENTON) Attestation To help prompt me to consider important information that might be impacting today's encounter and assessment, information from prior notes written by myself or my colleagues may have been "brought forward" into today's note. My signature on this note, however, is an attestation that I personally performed the exam, history, and/or decision-making noted today, and, unless otherwise indicated, the interactions with patient, family, and staff as well as the review of records all occurred today. I also attest that the listed assessment and stated plan reflect my best clinical judgment today based on the combination of historical information, prior notes, and today's exam/ interactions. When time spent is documented, it refers only to time spent today by the signer, or if indicated, combined time spent today by collaborating physician/nurse practitioner. (STEPHANIE BENTON) Collaborating MD Comments Chart reviewed. 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 Above TYPING ELEMENT MACHINE OPERATOR note reviewed and I concur. . (Kwadwo Hardy MD) STEPHANIE BENTON Oct 20, 2016 11:16 wKadwo Hardy MD Dec 05, 2016 13:55
[2016-10-20] MEDS: VANCOMYCIN 1,000 MG/NS 250 ML IV SCH ×2 (12:12)
[2016-10-20] MEDS: POTASSIUM CHLOR 20 MEQ PREMIX 100 ML IV PRN ×2 (12:13→15:28)
[2016-10-20] MEDS: METOPROLOL TARTRATE 5 MG/5 ML VIAL IV PUSH PRN ×3 (12:23→22:02)
[2016-10-20] MEDS: levETIRAcetam 500MG PREMIX INJ 100 ML IV SCH ×2 (12:48→23:56)
[2016-10-20 12:49] LABS: APTT (PATIENT) 29.9 SEC (24.3-30.1)
[2016-10-20 14:20] LABS: HDL CHOLESTEROL 65.9 MG/DL (40.0-60.0)
[2016-10-20 16:26] LABS: GROSS BLOOD TUBE #1 0 (0); GROSS BLOOD TUBE #2 0 (0); GROSS BLOOD TUBE #3 0 (0); SUPERNATE COLOR TUBE #1 CLEAR (CLEAR); SUPERNATE COLOR TUBE #2 CLEAR (CLEAR); SUPERNATE COLOR TUBE #3 CLEAR (CLEAR); VOLUME TUBE # 1 2.8 ML; VOLUME TUBE # 2 2.6 ML; WBC TUBE #1 4 /MM3 (0-10)
[2016-10-20 16:27] LABS: CSF LYMPHOCYTES 16 %; CSF MONOCYTES 78 %; CSF NEUTROPHILS 2 %; GROSS BLOOD TUBE #4 0 (0); SUPERNATE COLOR TUBE #4 CLEAR (CLEAR); VOLUME TUBE # 4 4.1 ML
--- NOTE | 2016-10-20 21:32 | PD.PROCEDR ---
Procedure Note Procedure Lumbar Puncture Diagnosis: altered mental status Indications: encephalopathy Consent: written consent was obtained Anesthesia: propofol iv, lidocaine 1% locally Description of the Procedure: The patient was placed in the supine, left lateral decubitus position. The patient was prepped and draped sterilely. 1% lidocaine was infiltrated subcutaneously. A 20g Quincke needle was inserted into the L3-4 interspace and advanced until CSF was obtained. Opening pressure was obtained. CSF was drained in 4 incremental vials. The needle was removed and a dressing was applied. The patient was returned to the supine position. Instructions were given to remain flat x 2 hours. There were no immediate complications noted. There was minimal EBL. The patient tolerated the procedure well. Opening Pressure: 20 cm H2O Amount of CSF removed: 10 mL Findings: clear CSF. I personally performed the procedure. Edgardo Thakur MD Oct 20, 2016 21:32
[2016-10-20] MEDS: HEPARIN SODIUM - SQ 10,000 UNITS/ML VIAL SQ SCH (21:57)
[2016-10-21] VITALS (17 sets, daily range): BP systolic 113–159; BP diastolic 44–96; PULSE 77–110; RESP 19–28; TEMP 98.5–98.9; O2SAT 98–99
--- NOTE | 2016-10-21 00:04 | EKG ---
Date Performed: 10/18/2016 Time Performed: 21:16:08 PTAGE: 61 years EKG: Sinus tachycardia Extensive T wave changes may be due to myocardial ischemia Abnormal ECG PREVIOUS TRACING : 10/18/2016 11.11 DOCTOR: Otis Barnes Interpretating Date/Time 10/20/2016 23:53:04
--- NOTE | 2016-10-21 00:04 | EKG ---
Date Performed: 10/18/2016 Time Performed: 23:19:26 PTAGE: 61 years EKG: Sinus tachycardia Possible right atrial abnormality Extensive ST-T changes may be due to my ocardial ischemia Abnormal ECG PREVIOUS TRACING : 10/18/2016 21.16 DOCTOR: Otis Barnes Interpretating Date/Time 10/20/2016 23:52:59
[2016-10-21] MEDS: LACTATED RINGER'S 1000 ML INJ 1,000 ML IV SCH ×2 (00:39→09:05)
[2016-10-21] MEDS: PROPOFOL 1000 MG/100 ML INJ 100 ML IV SCH ×3 (01:03→23:31)
[2016-10-21] MEDS: metroNIDAZOLE 500 MG INJ 100 ML IV SCH ×2 (03:59→09:19)
[2016-10-21] MEDS: SODIUM CHLORIDE 0.9% IV SCH ×3 (03:59→21:03)
[2016-10-21] MEDS: ACYCLOVIR IV SCH ×3 (03:59→21:03)
[2016-10-21] MEDS: AMPICILLIN INJ 2,000 MG in SODIUM CHLORIDE 0.9% INJ 100 ML IV SCH (03:59)
[2016-10-21] MEDS: CHLORHEXIDINE GLUCONATE 2 % 1 PACK (2 CLOTHS) TOP SCH (04:00)
[2016-10-21] MEDS: cefTRIAXone INJ 2,000 MG in SODIUM CHLORIDE 0.9% INJ 100 ML IV SCH (04:00)
[2016-10-21] MEDS: RESP: ALBUTEROL 2.5 MG/IPRATROPIUM 0.5 MG NEB (SCH) INH ×4 (04:30→21:40)
[2016-10-21 05:16] LABS: HEMATOCRIT 31.3 % (35.0-46.0); MEAN CELL VOLUME 97.3 FL (80.0-100.0); MEAN CORPUSCULAR HEMOGLOBIN 32.6 PG (27.0-34.0); MEAN CORPUSCULAR HGB CONC 33.5 % (32.0-36.0); PLATELET COUNT 236 TH/MM3 (150-450); RED BLOOD COUNT 3.22 MIL/MM3 (4.00-5.30); RED CELL DISTRIBUTION WIDTH 13.5 % (11.6-17.2); REVIEW FLAG FINAL; WHITE BLOOD COUNT 13.4 TH/MM3 (4.0-11.0)
[2016-10-21 05:42] LABS: BICARBONATE 21.7 MEQ/L (21.0-32.0); POTASSIUM 3.1 MEQ/L (3.5-5.1)
[2016-10-21] MEDS: INSULIN NovoLIN REGULAR SUPPLEMENTAL SCALE SQ SCH ×3 (05:52→17:49)
[2016-10-21] MEDS: FREE WATER G-TUBE SCH ×3 (06:00→17:46)
[2016-10-21] MEDS: HEPARIN SODIUM - SQ 10,000 UNITS/ML VIAL SQ SCH ×3 (06:37→21:02)
--- NOTE | 2016-10-21 07:54 | HHI.PR ---
Subjective Remarks on sedatives Objective Vital Signs Date Time Temp Pulse Resp B/P Pulse Ox O2 Delivery O2 Flow Rate FiO2 10/21/16 07:15 99 40 10/21/16 04:25 99 40 10/21/16 03:00 79 10/21/16 03:00 98.8 79 26 117/74 99 130/75 10/21/16 02:09 99 40 10/20/16 23:00 80 10/20/16 23:00 98.6 80 26 149/91 99 161/87 10/20/16 22:04 99 40 10/20/16 19:55 99 40 10/20/16 19:00 87 10/20/16 19:00 40 10/20/16 19:00 98.7 87 26 146/89 99 155/90 10/20/16 16:00 74 10/20/16 16:00 98.8 74 26 168/95 99 10/20/16 15:46 99 40 10/20/16 12:00 123 10/20/16 12:00 99.2 100 26 143/78 99 10/20/16 10:54 99 40 10/20/16 08:00 40 10/20/16 08:00 123 10/20/16 08:00 99.4 123 26 171/103 99 181/104 I/O 10/20/16 10/20/16 10/20/16 10/21/16 10/21/16 10/21/16 06:59 14:59 22:59 06:59 14:59 22:59 Intake Total 2237 ml 3222 ml 2541 ml Output Total 480 ml 850 ml 1050 ml Balance 1757 ml 2372 ml 1491 ml Intake Oral 0 ml IV Total 2237 ml 2837 ml 2214 ml Tube Feeding 25 ml 207 ml Tube Irrigant 360 ml 120 ml Output Urine Total 380 ml 650 ml 450 ml Stool Total 200 ml 600 ml Gastric Drainage Total 100 ml # Bowel Movements 0 Result Diagram: 10/21/16 0500 10/21/16 0500 Objective Remarks pupil = toes down bilat Assessment and Plan Assessment and Plan eeg shows sharps not quite pleds fu eeg pend will cover with acyclovir abt and LP neg so far x protein up could be due to some dm? steroid dose recheck abg ok i still have hope she will awaken i think the best thing is to keep her off all sedatives and rx inc bp with bp meds check additional labs watch renal fxt on acyclovir cont Al Mckeon MD Oct 21, 2016 07:54
[2016-10-21] MEDS: CHLORHEXIDINE 0.12% (ORAL KIT) 15 ML CUP MT SCH ×2 (08:11→21:04)
[2016-10-21] MEDS: SODIUM CHLORIDE 0.9% FLUSH 5 ML FLUSH IV FLUSH SCH ×2 (09:06→21:03)
[2016-10-21] MEDS: methylPREDNISolone SO SUCC INJ 500 MG in DEXTROSE 5% IN WATER 100ML INJ 100 ML IV SCH ×2 (09:06)
[2016-10-21] MEDS: POLYETHYLENE GLYCOL 17 GM PKG PO SCH ×2 (09:17→21:00)
[2016-10-21] MEDS: VANCOMYCIN 1,000 MG/NS 250 ML IV SCH ×2 (09:18)
[2016-10-21] MEDS: LACTULOSE SYRUP 20 GM/30 ML CUP PO SCH ×4 (09:18→21:00)
[2016-10-21] MEDS: METOPROLOL TARTRATE 50 MG TAB PO/TUBE SCH (09:18)
[2016-10-21] MEDS: DOCUSATE SODIUM 50 MG/SENNA 8.6 MG TAB PO SCH ×2 (09:18→21:00)
[2016-10-21] MEDS: PANTOPRAZOLE SOD 40 MG DELAYED RELEASE TAB PO SCH (09:18)
[2016-10-21] MEDS ORDERED: PHARMACY ORDERED LAB XX ONE (10:45)
[2016-10-21] MEDS: levETIRAcetam 500MG PREMIX INJ 100 ML IV SCH (12:06)
--- NOTE | 2016-10-21 12:08 | MG ---
cc: ADOLPH ARANGO M.D. Lab No: [id number] Date: 10/20/2016 Age: Sex: F Race: TECHNIQUE 17 channel EEG. DESCRIPTION: The background rhythm reveals slowing in the mainly delta frequency roughly 3-4 Hz. There does appear to be triphasic waves present and also sharp activity is identified bilaterally. No lateralizing features identified. Photic stimulation results in a poor driving response. INTERPRETATION Abnormal study consistent with a significant encephalopathy, in addition sharp activity is identified bilaterally. Some of the sharp activity appears to be vertex sharp waves but other may represent underlying epileptogenic foci. MD KLAUDIA Dunn/YAW /11:21 AM 11:59 AM
[2016-10-21] MEDS ORDERED: LABETALOL HCL 100 MG/20 ML VIAL ONE (12:56)
[2016-10-21] MEDS ORDERED: niCARdipine INJ 25 MG in SODIUM CHLOR 0.9% 250 ML INJ 250 ML IV SCH (13:15)
[2016-10-21] MEDS ORDERED: LABETALOL HCL 100 MG/20 ML VIAL IV PUSH PRN (13:15)
[2016-10-21] MEDS ORDERED: FUROSEMIDE 40 MG/4 ML VIAL IV PUSH ONE (13:15)
[2016-10-21 14:00] LABS: ALT (GPT) 38 U/L (10-53); AST (GOT) 30 U/L (15-37); VANCOMYCIN TROUGH 5.8 MCG/ML (5.0-10.0)
[2016-10-21] MEDS: CARVEDILOL 12.5 MG TAB PO SCH ×2 (14:40→21:02)
[2016-10-21 14:44] LABS: RAPID PLASMA REAGIN SCREEN NON-REACTIVE (NON-REACTVE)
--- NOTE | 2016-10-21 16:03 | PQ ---
Physician Query Response Document PATIENT: DAVID BREWER : 1955 ADMIT DATE: 10/18/2016 11:01 AM DISCH DATE: RESPONDING PROVIDER #: [email or web address] QUERY TEXT: Clarification of Clinical Diagnostic Findings Please clarify documentation or clinical relevance for the clinical / diagnostic findings or whether those are insignificant or unable to be further specified. Documentation Clarification- PLEASE CLARIFY THE DOCUMENTATION OF SEPSIS 1) SEPSIS PRESENT 2) SEPSIS RULED OUT 3) NO SEPSIS 4) OTHER, PLEASE EXPLAIN The patient's Clinical Indicators include: PER H For her altered mental status, certainly metabolic causes such as SEPSIS or hepatic dysfunction shoul d be considered. ?Continue vancomycin with pharmacy dosing ?We will switch from Zosyn to Rocephin 2 g IV every 12 for meningitic empiric coverage ?We will add Flagyl to cover anaerobes in the setting of probable aspiration SEPSIS WAS DOCUMENTED IN ER NOTE WITH SEPSIS PROTOCOL INITIATED CLINICAL FINDINGS ON ADMISSION: WBCs=19.6; LACTIC ACID=3.2 TEMP=97.6 RECTAL, PULSE 125, RESPIRATORY RATE=24; B/P=180/90 Query created by: Anette Redd on 10/21/2016 2:21 PM RESPONSE TEXT: The diagnosis at time of this note was possible sepsis, not confirmed. Subsequently, it was confirmed that the patient does, in fact, have sepsis. Electronically signed by: Edgardo Thakur MD 10/21/2016 3:59 PM
[2016-10-21 21:43] LABS: HEMOGLOBIN A1a 0.9 %; HEMOGLOBIN A1b 1.3 %; HEMOGLOBIN Ao 86.3 %; HEMOGLOBIN LA1C 2.4 %; HEMOGLOBIN P3 3.7 %
--- NOTE | 2016-10-21 22:14 | HHI.CCPN ---
Subjective Remarks/Hospital Course Hospital Course: This is a 61-year-old female with an unknown past medical history who was found down and unresponsive by a friend this morning. We do not know when she was last seen normal. We do not know anything about her past medical history. Per EMS, her vital signs were stable. Initially she was a GCS of 3 on scene. Narcan did not improve her mental status. There are significant dried emesis around her mouth. She was brought in by EMS and was intubated. In the emergency department, it was noted that the patient had significant ST elevations in lead V2 through V4. Cardiology was stat consulted. A stat echo was performed. Her labs are remarkable for a troponin of almost 5, but a normal MB ratio. A white count of 19,000. The patient is intubated and obtunded, and unable to provide any history. Critical care medicines were consulted to evaluate and manage her altered mental status, her possible acute coronary syndrome. 1:2: Called to patients bedside due to diaphoresis, oliguria with urine output less than 15 mL per hour for last 2 hours. (previously recorded 750 for last shift, hourly urine output before 2 hours ago unknown). She was tachypneic on mechanical ventilation with respiratory rate in the 30s and was profoundly diaphoretic, peripherally cool. Was able to palpate a pulse but unable to obtain blood pressure measurement. Emergently placed left central venous line bolused NS 250 mL IV and started levophed at 5 mcg/m and SBP was in 130s. Place left femoral art line and placed on Gamal Trac monitoring and CVP monitoring. Bedside cardiac ultrasound demonstrated LV dysfunction but RV appeared dynamic with inadequate filling. No significant pericardial effusion. EKG with anterior lateral ST elevation as seen previously and T wave inversions. CVP 6, CI 2.7 SVV 20, poor skin turgor, dry mucous membranes, collapsible IJ pointed towards volume responsiveness despite elevated BNP and diagnosis of TN. She responded to initial NS 250 bolus at which point levophed was weaned completely off. Started on gentle fluids with LR 100 ml/hr and UOP subsequently 50 ml/hr. CBC demonstrates stable hgb without evidence of bleeding. Being managed conservatively for subacute STEMI with ASA/heparin drip. Troponin increased, CK fraction remains normal. Subjective: 1/2: worsening instability overnight, but clinically appears to be volume responsive. troponins uptrending. still persistently GCS 6 and significantly encephalopathic. electronics warfare technician at bedside for portable EEG, prelim possible ictal activity. 10/20: persistent encephalopathy. hemodynamics have stabilized. now withdraws x 4 , does not open eyes. Dr. Lael added acyclovir and ampicillin last night. recommends LP, which I agree with, now that we have stabilized out from a cardiovascular standpoint. heparin drip on hold. 10/21: LP done yesterday with elevated opening pressure of 20. elevated lymphocytes. normal glucose. persistently encephalopathic. also, sputum growing gee-sensitive klebsiella. Objective Vital Signs Date Time Temp Pulse Resp B/P Pulse Ox O2 Delivery O2 Flow Rate FiO2 10/21/16 18:04 106 139/94 152/82 10/21/16 16:33 98.5 23 99 10/21/16 15:45 40 10/18/16 10:39 Ventilator Intake and Output 10/20/16 10/20/16 10/21/16 08:00 16:00 00:00 Intake Total 2237 ml 3222 ml Output Total 480 ml 850 ml Balance 1757 ml 2372 ml Result Diagram: 10/21/16 0500 10/21/16 0500 Objective Remarks gen: middle-aged female, lying in bed, intubated, sedated. critically ill heent: ncat. pupils 2mm, equal, conjugate, reactive. mucous membranes moist. chest: equal chest rise. intubated. clear to auscultation CV: normal rate, regular rhythm. hypertensive 180s/100s. abd: soft, nt, nd. no guarding. extr: trace peripheral edema. distal pulses 2+ neuro: RASS -4. moves all extremities spontaneously. does not withdraw or follow commands. +cough, +gag, +corneals. A/P Assessment and Plan Assessment and Plan Assessment: This is a 61-year-old female with a reported history in the medical record of alcoholic cirrhosis, hypothyroidism, chronic morphine use who was found down for an unknown period of time. Her course has been complicated by acute coronary syndrome and myocardial infarction and now persistent encephalopathy. I discussed her care with Dr. Max today. plan to hold sedation and frequent neuro checks. HSV PCR pending. She remains very critically ill. not on pathway. Active problems: Possible seizures Chronic opiate use Acute coronary syndrome- resolving. Hypertension Acute encephalopathyunknown type Alcoholic Cirrhosis Acute hypoxic and hypercarbic respiratory failure Klebsiella Community Acquired Pneumonia Plan: --q1h neuro checks --ativan 2mg iv prn for any witnessed seizure activity --keppra 500mg iv q12h -- neurology following: Dr. Max -- 10/19 MRI brain: no acute findings. -- EEG 10/19: epileptiform discharges with spikes, no overt ictal activity. -- RASS goal 0. -- propofol only to prevent patient harm. -- hold long-acting sedating meds. trop's downtrending. ok to stop checking. --ASA 325mg daily. --s/p heparin infusion, now on SQH alone. Goal heart rate less than 90 Cardiology following: Dr. Cruz --[facility] when more stable --d/c mivf today as patient appears clinicaly slightly hypervolemic. --Lasix 40mg iv x 1 for goal net 1L negative/24h. --will d/c metoprolol and start carvedilol 12.5mg po q12h. -- metop 5mg iv q4h prn for HR > 90 or SBP > 160 -- Labetalol 20mg iv q15m prn for SBP > 160. -- Nicardipine infusion for goal SBP < 160. --Vent bundle --low tidal volume ventilation targeting 6cc/kg IBW --wean fio2 for goal Spo2 > 90% --does not meet SBT criteria today given encephalopathy. --nebs q6h and q2n prn --HOB at 30deg --continue TF, Jevity 1.5, goal of 60. --Nutrition consult --BMP daily --thiamine 100mg iv daily --ammonia 35. unlikely to be the cause of her encephalopathy, but continue Lactulose 30mg po qid as a trial to see if this improves mentation. sputum culture 10/18: gee-sensitive Klebsiella. --blood, urine cultures 10/18: NGTD. -- d/c vancomycin, Flagyl, ampicillin. -- decrease Rocephin dose to 1gm iv q24h for anticipated 7 day course for community acquired pneumonia. (stop date 10/25). -- continue acyclovir and await HSV PCR results. Daily CBC, BMP Strict I's and O's with Garces catheter placement for accurate monitoring SCDs and SQH for DVT prophylaxis, Protonix for GI prophylaxis. She remains critically ill. This patient remains critically ill with one or more organ systems which are or may become a threat to life. I have spent in excess of 42 minutes discontinuously in the care and management of this patient. This time is exclusive of procedures, and includes, but is not limited to, evaluation of the patient, review of the medical record, discussions with family, consultants, nursing staff, or respiratory therapy, and documentation in the medical record. Edgardo Thakur MD Oct 21, 2016 22:14
[2016-10-22] VITALS (13 sets, daily range): BP systolic 92–161; BP diastolic 61–89; PULSE 80–93; RESP 15–33; TEMP 98.4–100.3; O2SAT 97–99
[2016-10-22] MEDS: levETIRAcetam 500MG PREMIX INJ 100 ML IV SCH ×2 (00:19→12:10)
[2016-10-22] MEDS: RESP: ALBUTEROL 2.5 MG/IPRATROPIUM 0.5 MG NEB (SCH) INH ×2 (03:38→10:35)
[2016-10-22] MEDS: CHLORHEXIDINE GLUCONATE 2 % 1 PACK (2 CLOTHS) TOP SCH (04:00)
[2016-10-22] MEDS: SODIUM CHLORIDE 0.9% IV SCH ×3 (04:28→21:04)
[2016-10-22] MEDS: ACYCLOVIR IV SCH ×3 (04:28→21:04)
[2016-10-22] MEDS: cefTRIAXone INJ 1,000 MG in SODIUM CHLORIDE 0.9% INJ 100 ML IV SCH (04:28)
[2016-10-22 05:23] LABS: HEMATOCRIT 31.6 % (35.0-46.0); MEAN CELL VOLUME 96.6 FL (80.0-100.0); MEAN CORPUSCULAR HEMOGLOBIN 33.1 PG (27.0-34.0); MEAN CORPUSCULAR HGB CONC 34.2 % (32.0-36.0); PLATELET COUNT 233 TH/MM3 (150-450); RED BLOOD COUNT 3.27 MIL/MM3 (4.00-5.30); RED CELL DISTRIBUTION WIDTH 13.5 % (11.6-17.2); REVIEW FLAG FINAL
[2016-10-22] MEDS: HEPARIN SODIUM - SQ 10,000 UNITS/ML VIAL SQ SCH ×3 (05:44→21:05)
[2016-10-22] MEDS: INSULIN NovoLIN REGULAR SUPPLEMENTAL SCALE SQ SCH ×4 (05:45→18:21)
[2016-10-22] MEDS: FREE WATER G-TUBE SCH ×4 (05:45→18:00)
[2016-10-22 05:53] LABS: BICARBONATE 27.3 MEQ/L (21.0-32.0)
[2016-10-22 05:59] LABS: POTASSIUM 2.7 MEQ/L (3.5-5.1)
--- NOTE | 2016-10-22 07:44 | HHI.PR ---
Subjective Remarks on sedatives Objective Vital Signs Date Time Temp Pulse Resp B/P Pulse Ox O2 Delivery O2 Flow Rate FiO2 10/22/16 06:32 88 131/75 146/79 10/22/16 03:55 99 35 10/22/16 03:00 99.8 92 15 140/78 99 150/79 10/22/16 03:00 93 10/22/16 02:10 97 35 10/22/16 01:05 99 35 10/21/16 23:08 98.7 91 21 131/78 99 148/76 10/21/16 23:08 93 10/21/16 21:00 35 10/21/16 20:30 99 35 10/21/16 19:20 40 10/21/16 19:17 98.9 100 19 122/44 98 145/79 10/21/16 19:00 100 10/21/16 18:04 106 139/94 152/82 10/21/16 16:33 98.5 110 23 159/96 99 148/89 10/21/16 16:33 107 10/21/16 15:45 98 40 10/21/16 13:00 99 40 10/21/16 11:53 81 10/21/16 11:30 99 40 10/21/16 11:00 98.6 77 26 113/66 99 118/65 10/21/16 08:00 40 10/21/16 08:00 84 I/O 10/21/16 10/21/16 10/21/16 10/22/16 10/22/16 10/22/16 07:00 15:00 23:00 07:00 15:00 23:00 Intake Total 2541 ml 3385 ml 2693 ml Output Total 1050 ml 2700 ml 3330 ml Balance 1491 ml 685 ml -637 ml Intake Oral 0 ml IV Total 2214 ml 2125 ml 885 ml Tube Feeding 207 ml 660 ml 1208 ml Tube Irrigant 120 ml 600 ml Other 600 ml Output Urine Total 450 ml 2100 ml 2030 ml Stool Total 600 ml 500 ml 1300 ml Gastric Drainage Total 100 ml Result Diagram: 10/22/16 0457 10/22/16456 Objective Remarks pupil = toes down bilat wiggles toes Assessment and Plan Assessment and Plan eeg shows sharps not quite pleds fu eeg similar will cover with acyclovir and LP neg so far x protein up could be due to some dm? steroid dose recheck abg ok i still have hope she will awaken i think the best thing is to keep her off all sedatives and rx inc bp with bp meds check additional labs watch renal fxt on acyclovir cont keppra at this point may be met encephalopathy ? precedex better as sits up in bed off sedatives csf protein was up however and not dm Al Su MD Oct 22, 2016 07:43
[2016-10-22] MEDS: POTASSIUM CHLOR 20 MEQ PREMIX 100 ML IV PRN ×3 (08:06→21:04)
[2016-10-22] MEDS: CHLORHEXIDINE 0.12% (ORAL KIT) 15 ML CUP MT SCH ×2 (08:07→21:06)
[2016-10-22] MEDS: methylPREDNISolone SO SUCC INJ 500 MG in DEXTROSE 5% IN WATER 100ML INJ 100 ML IV SCH ×2 (08:26)
[2016-10-22] MEDS ORDERED: POTASSIUM CHLORIDE 20 MEQ CONTROLLED RELEASE TAB PO ONE (08:30)
--- NOTE | 2016-10-22 08:39 | PD.CARD.PN ---
Subjective Subjective Remarks on vent Objective Medications Current Medications Medications (Trade) Dose Ordered Sig/Renita Route Start Time Stop Time Status Last Admin Magnesium Oxide 800 mg 800 mg UNSCH PRN PO 10/18/16 11:00 Magnesium Sulfate 4 gm/Sodium Chloride 100 ml @ 50 mls/hr UNSCH PRN IV 10/18/16 11:00 Magnesium Sulfate 2 gm/Sodium Chloride 100 ml @ 50 mls/hr UNSCH PRN IV 10/18/16 11:00 Potassium Chloride 100 ml @ 50 mls/hr Q2H PRN IV 10/18/16 11:00 10/22/16 08:06 Potassium Chloride 100 ml @ 50 mls/hr Q2H PRN IV 10/18/16 11:00 Potassium Chloride 100 ml @ 50 mls/hr Q2H PRN IV 10/18/16 11:00 10/21/16 09:07 (KCl 40 Meq Premix Inj) 100 ml @ 25 mls/hr UNSCH PRN IV 10/18/16 11:00 (KCl 40 Meq/30 ml Liq) 40 meq UNSCH PRN PO/TUBE 10/18/16 11:00 (KCl 40 Meq/30 ml Liq) 40 meq UNSCH PRN PO/TUBE 10/18/16 11:00 10/22/16 08:06 (K-Phos) 2,000 mg Q4H PRN PO 10/18/16 11:00 Potassium Phosphate 2000 mg 2,000 mg UNSCH PRN PO/TUBE 10/18/16 11:00 Potassium Phosphate 30 mmol/ Sodium Chloride 260 ml @ 42 mls/hr UNSCH PRN IV 10/18/16 11:00 (Sodium Phosphate Inj/NS 250 ml Inj) 250 ml @ 42 mls/hr UNSCH PRN IV 10/18/16 11:00 (D50w (Vial) Inj) 25 ml UNSCH PRN IV PUSH 10/18/16 11:00 Insulin Human Regular 1 1 Q6HR SQ 10/18/16 12:00 10/21/16 17:49 (Diprivan 1000 Mg/100ml Inj) 100 ml @ 0 mls/hr TITRATE IV 10/18/16 11:00 10/21/16 23:31 (NS Flush) 2 ml UNSCH PRN IV FLUSH 10/18/16 11:00 10/20/16 22:03 (NS Flush) 2 ml BID IV FLUSH 10/18/16 21:00 10/21/16 21:03 (Zofran Inj) 4 mg Q6H PRN IV 10/18/16 11:00 (Litzy-Colace) 2 tab BID PO 10/18/16 21:00 10/21/16 09:18 Miscellaneous Information 1 Q361D XX 10/18/16 11:00 (Chlorhexidine 2% Cloth) 3 pack Taper DAILY@04 TOP 10/19/16 04:00 10/15/17 03:59 10/22/16 04:00 (Chlorhexidine 2% Cloth) 3 pack UNSCH PRN TOP 10/18/16 11:00 (Peridex 0.12% Liq) 15 ml BID@08,20 MT 10/18/16 20:00 10/22/16 08:07 (Miralax) 17 gm BID PO 10/18/16 21:00 10/21/16 09:17 Terbutaline Sulfate 1 mg 1 mg UNSCH PRN SQ 10/18/16 21:15 (Keppra 500 Mg Premix Inj) 100 ml @ 400 mls/hr Q12H IV 10/20/16 00:00 10/22/16 00:19 Miscellaneous 1 ea 1 ea UNSCH PRN OTHER 10/19/16 14:45 (Zovirax Inj/NS Inj) 100 ml @ 100 mls/hr Q8H IV 10/19/16 20:00 10/22/16 04:28 (Protonix) 40 mg DAILY PO 10/20/16 09:00 10/21/16 09:18 (Lopressor Inj) 5 mg Q4H PRN IV PUSH 10/20/16 09:00 10/20/16 22:02 (Lactulose Liq) 30 ml QID PO 10/20/16 09:00 10/21/16 17:49 (Heparin Inj) 5,000 units Q8HR SQ 10/20/16 22:00 10/22/16 05:44 (Free Water) 300 ml Q6HR G-TUBE 10/21/16 06:00 10/22/16 05:45 Labetalol HCl 20 mg 20 mg Q15M PRN IV PUSH 10/21/16 13:15 Nicardipine HCl 25 mg/Sodium Chloride 260 ml @ 0 mls/hr TITRATE IV 10/21/16 13:15 (Rocephin Inj/NS Inj) 100 ml @ 200 mls/hr Q24H IV 10/22/16 04:00 10/24/16 06:00 10/22/16 04:28 Carvedilol 12.5 mg 12.5 mg Q12HR PO 10/21/16 13:30 10/21/16 21:02 (KCl 20 Meq Premix Inj) 100 ml @ 50 mls/hr Q2H IV 10/22/16 08:30 10/22/16 14:29 Vital Signs / I&O Vital Signs Date Time Temp Pulse Resp B/P Pulse Ox O2 Delivery O2 Flow Rate FiO2 10/22/16 07:47 99 35 10/22/16 06:32 88 131/75 146/79 10/22/16 03:55 99 35 10/22/16 03:00 99.8 92 15 140/78 99 150/79 10/22/16 03:00 93 10/22/16 02:10 97 35 10/22/16 01:05 99 35 10/21/16 23:08 98.7 91 21 131/78 99 148/76 10/21/16 23:08 93 10/21/16 21:00 35 10/21/16 20:30 99 35 10/21/16 19:20 40 10/21/16 19:17 98.9 100 19 122/44 98 145/79 10/21/16 19:00 100 10/21/16 18:04 106 139/94 152/82 10/21/16 16:33 98.5 110 23 159/96 99 148/89 10/21/16 16:33 107 10/21/16 15:45 98 40 10/21/16 13:00 99 40 10/21/16 11:53 81 10/21/16 11:30 99 40 10/21/16 11:00 98.6 77 26 113/66 99 118/65 I/O 10/21/16 10/21/16 10/21/16 10/22/16 10/22/16 10/22/16 06:59 14:59 22:59 06:59 14:59 22:59 Intake Total 2541 ml 3385 ml 2693 ml Output Total 1050 ml 2700 ml 3330 ml Balance 1491 ml 685 ml -637 ml Intake Oral 0 ml IV Total 2214 ml 2125 ml 885 ml Tube Feeding 207 ml 660 ml 1208 ml Tube Irrigant 120 ml 600 ml Other 600 ml Output Urine Total 450 ml 2100 ml 2030 ml Stool Total 600 ml 500 ml 1300 ml Gastric Drainage Total 100 ml Physical Exam GENERAL: Well developed, well nourished. No acute distress. HEENT: Jugular venous pressure is normal. CHEST: Lungs decreased and clear to auscultation bilaterally. Unlabored respiratory effort. CARDIAC: Regular rate and rhythm without S3, S4, or murmur. ABDOMEN: Soft, nontender, no hepatosplenomegaly. Bowel sounds present. EXTREMITIES: No clubbing, cyanosis, or edema. Laboratory Laboratory Tests Test 10/21/16 10/22/16 11:33 04:57 Erythrocyte Sedimentation Rate 18 mm/hr Hemoglobin A1c 5.0 % Aspartate Amino Transf 30 U/L (AST/SGOT) Alanine Aminotransferase 38 U/L (ALT/SGPT) Vitamin B12 Level 1755 PG/ML Vancomycin Level Trough 5.8 MCG/ML Rapid Plasma Reagin NON-REACTIVE White Blood Count 11.0 TH/MM3 Red Blood Count 3.27 MIL/MM3 Hemoglobin 10.8 GM/DL Hematocrit 31.6 % Mean Corpuscular Volume 96.6 FL Mean Corpuscular Hemoglobin 33.1 PG Mean Corpuscular Hemoglobin 34.2 % Concent Red Cell Distribution Width 13.5 % Platelet Count 233 TH/MM3 Mean Platelet Volume 8.6 FL Sodium Level 146 MEQ/L Potassium Level 2.7 MEQ/L Chloride Level 110 MEQ/L Carbon Dioxide Level 27.3 MEQ/L Anion Gap 9 MEQ/L Blood Urea Nitrogen 16 MG/DL Creatinine 0.69 MG/DL Estimat Glomerular Filtration 86 ML/MIN Rate Random Glucose 131 MG/DL Calcium Level 7.7 MG/DL Assessment and Plan Assessment and Plan NSTEMI- ok to keep off heparin - likely secondary TN -poor/not a revascularization candidate with AMS Cardiomyopathy- global HK with EF 40-45% - metoprolol and lisinopril HTN- add linopril Resp Failure on vent AMS- per neuro Renal Insufficiency- Cait Cruz MD Oct 22, 2016 08:39
[2016-10-22] MEDS: POLYETHYLENE GLYCOL 17 GM PKG PO SCH ×2 (09:00→21:00)
[2016-10-22] MEDS ORDERED: LISINOPRIL 20 MG TAB PO/NG ONE (09:15)
[2016-10-22 09:39] LABS: HSV 1,PCR Negative (Negative)
[2016-10-22] MEDS: POTASSIUM CHLOR 20 MEQ PREMIX 100 ML IV SCH ×4 (10:09→12:34)
[2016-10-22] MEDS: CARVEDILOL 12.5 MG TAB PO SCH ×2 (10:10→21:00)
[2016-10-22] MEDS: DOCUSATE SODIUM 50 MG/SENNA 8.6 MG TAB PO SCH ×2 (10:10→21:05)
[2016-10-22] MEDS: SODIUM CHLORIDE 0.9% FLUSH 5 ML FLUSH IV FLUSH SCH ×2 (10:10→22:37)
[2016-10-22] MEDS: LACTULOSE SYRUP 20 GM/30 ML CUP PO SCH ×4 (10:11→21:04)
[2016-10-22] MEDS: PANTOPRAZOLE SOD 40 MG DELAYED RELEASE TAB PO SCH (10:11)
[2016-10-22] MEDS: LISINOPRIL 20 MG TAB PO/NG SCH ×2 (10:11→21:00)
--- NOTE | 2016-10-22 14:15 | HHI.HCPN ---
Reason for visit a. To assist with evaluation and management of symptoms including: pain, dyspnea, encephalopathy. b. To assist medical decision maker(s) with: better understanding of current medical conditions; weighing benefits/burdens of medical treatment options; making medical treatment decisions. . (STEPHANIE BENTON) Subjective/Interval History Patient seen and examined in ICU. AL ThomasW also present. On Diprivan. She does not arouse to pain, voice or exam. She does not open eyes. She is spontaneously moving bilateral LEs, non-purposeful. She withdrawals to painful stimuli all extremities. Patient does not appear painful. Tmax 99.8. Vital signs stable. On CPAP during my visit. Respirations appear mildly labored. WBC decreased to 11. Potassium 2.7. 10/19/16 sputum culture positive Klebsiella Pneumonia gee-sensitive, on Ceftriaxone. No new imaging. Repeat EEG done 10/21/16 consistent with significant encephalopathy, in addition sharp activity is identified bilaterally, some of the sharp activity appears to be for tech sharp waves may represent underlying epileptogenic foci. On Keppra. CSF with elevated total protein 104.6. Other CSF results still pending. . Family/friend interactions Spoke with daughterYola via phone to provide medical update including recent test results and plan of care. She appreciates update. She is asking questions about prognosis. Advised we should continue aggressive care for now as we await additional test results. Explained we may have additional concerns if encephalopathy persists. Daughter indicates family has spoken and that patient would not want trach/PEG or continued aggressive care if condition worsens or if no clinical improvement. She asks if I will tell her when the doctors think "it is time." I promised her I would keep her updated, I will call with update again 10/23/16. Advised now is not time. . (STEPHANIE BENTON) Advance Directives Living Will: Never completed Health Care Surrogate: Never completed Durable Power of Radar Air Traffic Controller: Never completed (STEPHANIE BENTON) Advance Directive Specifics Significant change in goals: NO CODE. Desires continued aggressive care short of NO CODE at this time. . (STEPHANIE BENTON) Objective Vital Signs Date Time Temp Pulse Resp B/P Pulse Ox O2 Delivery O2 Flow Rate FiO2 10/22/16 07:47 99 35 10/22/16 07:00 89 10/22/16 07:00 35 10/22/16 07:00 98.4 89 24 121/77 99 147/85 10/22/16 06:32 88 131/75 146/79 10/22/16 03:55 99 35 10/22/16 03:00 99.8 92 15 140/78 99 150/79 10/22/16 03:00 93 10/22/16 02:10 97 35 10/22/16 01:05 99 35 10/21/16 23:08 98.7 91 21 131/78 99 148/76 10/21/16 23:08 93 10/21/16 21:00 35 10/21/16 20:30 99 35 10/21/16 19:20 40 10/21/16 19:17 98.9 100 19 122/44 98 145/79 10/21/16 19:00 100 10/21/16 18:04 106 139/94 152/82 10/21/16 16:33 98.5 110 23 159/96 99 148/89 10/21/16 16:33 107 10/21/16 15:45 98 40 Intake & Output 10/22/16 10/22/16 07:00 19:00 Intake Total 2693 ml Output Total 3330 ml Balance -637 ml IV Total 885 ml Tube Feeding 1208 ml Other 600 ml Output Urine Total 2030 ml Stool Total 1300 ml Physical Exam CONSTITUTIONAL/GENERAL: This is an adequately nourished patient, in no apparent distress. TUBES/LINES/DRAINS:ETT, OG, left IJ CL, left femoral line. PIVs, Garces, bilateral soft wrist restraints, SCDs SKIN: No jaundice, rashes, or lesions. Ecchymoses on upper extremities. No wounds seen anteriorly. Skin temperature appropriate. Not diaphoretic. EYES: Pupils equal and round and reactive. ENT: Unable to adequately assess hearing. Nose without bleeding or purulent drainage. Throat difficult to visualize due to tubes. CARDIOVASCULAR: tachycardic. No JVD. Peripheral pulses symmetric. RESPIRATORY/CHEST: Symmetric, unlabored respirations on vent. Clear to auscultation. GASTROINTESTINAL: Abdomen soft, non-tender, mildly distended. No guarding. Bowel sounds present. GENITOURINARY: Without palpable bladder distension. Garces catheter in place. MUSCULOSKELETAL: Extremities without clubbing, cyanosis, or edema. No mottling or clubbing. NEUROLOGICAL: On Diprivan. Moves bilateral LE spontaneously. Withdraws to noxious stimuli all extremities. Does not open eyes or follow commands. . (STEPHANIE BENTON) Diagnostic Tests Laboratory Laboratory Tests Test 10/19/16 10/20/16 10/20/16 10/20/16 15:00 05:27 10:13 12:10 Activated Partial 42.5 SEC 37.4 SEC 29.9 SEC Thromboplast Time (24.3-30.1) (24.3-30.1) (24.3-30.1) White Blood Count 15.7 TH/MM3 (4.0-11.0) Red Blood Count 3.39 MIL/MM3 (4.00-5.30) Hemoglobin 11.0 GM/DL (11.6-15.3) Hematocrit 33.0 % (35.0-46.0) Mean Corpuscular Volume 97.4 FL (80.0-100.0) Mean Corpuscular Hemoglobin 32.5 PG (27.0-34.0) Mean Corpuscular Hemoglobin 33.3 % Concent (32.0-36.0) Red Cell Distribution Width 13.3 % (11.6-17.2) Platelet Count 257 TH/MM3 (150-450) Mean Platelet Volume 7.9 FL (7.0-11.0) Sodium Level 144 MEQ/L (136-145) Potassium Level 3.0 MEQ/L (3.5-5.1) Chloride Level 111 MEQ/L (98-107) Carbon Dioxide Level 23.1 MEQ/L (21.0-32.0) Anion Gap 10 MEQ/L (5-15) Blood Urea Nitrogen 18 MG/DL (7-18) Creatinine 0.77 MG/DL (0.50-1.00) Estimat Glomerular Filtration 76 ML/MIN (>89) Rate Random Glucose 158 MG/DL (74-106) Calcium Level 7.7 MG/DL (8.5-10.1) Triglycerides Level 93 MG/DL (42-150) Cholesterol Level 158 MG/DL (120-200) LDL Cholesterol 74 MG/DL (0-99) HDL Cholesterol 65.9 MG/DL (40.0-60.0) Cholesterol/HDL Ratio 2.39 RATIO Blood Gas Puncture Site ART LINE Blood Gas Patient Temperature 98.6 Blood Gas HCO3 20 mmol/L (22-26) Blood Gas Base Excess -2.9 mmol/L (-2-2) Blood Gas Oxygen Saturation 98 % (90-100) Arterial Blood pH 7.51 (7.380-7.420) Arterial Blood Partial 25 mmHg (38-42) Pressure CO2 Arterial Blood Partial 197 mmHg Pressure O2 (61-120) Arterial Blood Oxygen Content 14.9 Vol % (12.0-20.0) Arterial Blood 1.3 % (0-4) Carboxyhemoglobin Arterial Blood Methemoglobin 1.1 % (0-2) Blood Gas Hemoglobin 10.5 G/DL (12.0-16.0) Oxygen Delivery Device VENTILATOR Blood Gas Ventilator Setting PRVC/AC Blood Gas Inspired Oxygen 40 % Test 10/20/16 10/21/16 10/21/16 10/22/16 14:55 05:00 11:33 04:57 CSF Volume (Tube 1) 2.8 ML CSF Supernatant Color (tube 1) CLEAR (CLEAR) CSF Gross Blood (Tube 1) 0 (0) CSF WBC (Tube 1) 4 /MM3 (0-10) CSF RBC (Tube 1) 12 /MM3 (NONE) CSF Volume (Tube 2) 2.6 ML CSF Supernatant Color (tube 2) CLEAR (CLEAR) CSF Gross Blood (Tube 2) 0 (0) CSF Volume (Tube 3) 3.0 ML CSF Supernatant Color (tube 3) CLEAR (CLEAR) CSF Gross Blood (Tube 3) 0 (0) CSF Volume (Tube 4) 4.1 ML CSF Supernatant Color (tube 4) CLEAR (CLEAR) CSF Gross Blood (Tube 4) 0 (0) CSF Neutrophils 2 % CSF Lymphocytes 16 % CSF Monocytes 78 % CSF Histiocytes 4 % CSF Glucose 89 MG/DL (40-80) CSF Total Protein 104.6 MG/DL (15.0-45.0) Herpes Simplex Virus I DNA Negative (PCR) (Negative) Herpes Simplex Virus II DNA Negative (PCR) (Negative) White Blood Count 13.4 TH/MM3 11.0 TH/MM3 (4.0-11.0) (4.0-11.0) Red Blood Count 3.22 MIL/MM3 3.27 MIL/MM3 (4.00-5.30) (4.00-5.30) Hemoglobin 10.5 GM/DL 10.8 GM/DL (11.6-15.3) (11.6-15.3) Hematocrit 31.3 % 31.6 % (35.0-46.0) (35.0-46.0) Mean Corpuscular Volume 97.3 FL 96.6 FL (80.0-100.0) (80.0-100.0) Mean Corpuscular Hemoglobin 32.6 PG 33.1 PG (27.0-34.0) (27.0-34.0) Mean Corpuscular Hemoglobin 33.5 % 34.2 % Concent (32.0-36.0) (32.0-36.0) Red Cell Distribution Width 13.5 % 13.5 % (11.6-17.2) (11.6-17.2) Platelet Count 236 TH/MM3 233 TH/MM3 (150-450) (150-450) Mean Platelet Volume 8.2 FL 8.6 FL (7.0-11.0) (7.0-11.0) Sodium Level 148 MEQ/L 146 MEQ/L (136-145) (136-145) Potassium Level 3.1 MEQ/L 2.7 MEQ/L (3.5-5.1) (3.5-5.1) Chloride Level 114 MEQ/L 110 MEQ/L (98-107) (98-107) Carbon Dioxide Level 21.7 MEQ/L 27.3 MEQ/L (21.0-32.0) (21.0-32.0) Anion Gap 12 MEQ/L (5-15) 9 MEQ/L (5-15) Blood Urea Nitrogen 18 MG/DL (7-18) 16 MG/DL (7-18) Creatinine 0.80 MG/DL 0.69 MG/DL (0.50-1.00) (0.50-1.00) Estimat Glomerular Filtration 73 ML/MIN (>89) 86 ML/MIN (>89) Rate Random Glucose 173 MG/DL 131 MG/DL (74-106) (74-106) Calcium Level 7.6 MG/DL 7.7 MG/DL (8.5-10.1) (8.5-10.1) Erythrocyte Sedimentation Rate 18 mm/hr (0-30) Hemoglobin A1c 5.0 % (4.3-6.0) Aspartate Amino Transf 30 U/L (15-37) (AST/SGOT) Alanine Aminotransferase 38 U/L (10-53) (ALT/SGPT) Vitamin B12 Level 1755 PG/ML (193-986) Vancomycin Level Trough 5.8 MCG/ML (5.0-10.0) Rapid Plasma Reagin NON-REACTIVE (NON-REACTVE) (STEPHANIE BENTON MEAT TEAM LEAD-C) Result Diagram: 10/22/16 0457 10/22/16 0457 Microbiology Microbiology Date/Time Procedure Status Source Growth 10/20/16 14:55 Gram Stain - Final Resulted Cerebral Spinal Fluid Lumbar Puncture 10/20/16 14:55 CSF Culture - Preliminary Resulted Cerebral Spinal Fluid Lumbar Puncture NO GROWTH IN 48 HOURS. 10/20/16 14:55 Fungal Smear - Final Resulted Cerebral Spinal Fluid Lumbar Puncture NO FUNGAL ELEMENTS SEEN. 10/20/16 14:55 Fungal Culture Resulted Cerebral Spinal Fluid Lumbar Puncture Pending Imaging Last Impressions Chest X-Ray 10/19/16 0600 Signed Impressions: Service Date/Time: Wednesday, October 19, 2016 05:22 - CONCLUSION: 1. Lines and tubes. 2. No infiltrate left lower lobe. 3. Tiny effusions. Sandoval Purvis Jr., MD Brain MRI 10/19/16 0000 Signed Impressions: Service Date/Time: Wednesday, October 19, 2016 16:31 - CONCLUSION: Noncontrast MRI appearance of the brain within normal limits for a patient this age. No acute intracranial abnormality is demonstrated. Sinus disease noted. Lucas Montes MD Aorta CTA 10/18/16 0945 Signed Impressions: Service Date/Time: Tuesday, October 18, 2016 10:08 - CONCLUSION: 1. No evidence for aortic dissection. 2. Tree in bud infiltrate left lower lobe. Evangelist Hurley MD Head CT 10/18/16 0940 Signed Impressions: Service Date/Time: Tuesday, October 18, 2016 10:00 - CONCLUSION: Normal examination. Evangelist Hurley MD . Procedures 10/18/16: Intubation 10/18/16: NG tube placement 10/19/16: Left IJ central venous access 10/19/16: Left femoral arterial catheter placement . (STEPHANIE BENTON) Assessment and Plan Disease Oriented Problem List: (1) Leukocytosis (2) ST elevation [place] (STEMI) (3) Sepsis (4) Altered mental status (5) Elevated troponin (6) Left lower lobe pneumonia Symptom Scale: (1) Pain 0-10 Scale: Unable to quantify (2) Dyspnea 0-10 Scale: Unable to quantify Pertinent Non-Medical Issues Psychosocial:Patient was born in [place]. She lived in [place] and [place]. She was but is now . She has 3 adult children. 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 Spiritual: Tenriism galen. Legal: Per [place] statutes, in the absence of written advanced directives healthcare proxy decision making would fall to the majority of the patient's 3 adult children. Ethical issues impacting care: No known ethical issues impacting care at this time. . Important Contacts * Yola Molina(daughter): #[phone]-- wishes to be involved in medical decision making, serving as HCP for patient. * Matthew Molina (son): #[phone] - defers decision making at this time. Will be available to support Yola for decisions. * Carolyn Molina (daughter): #[phone] -- defers decision making at this time. Will be available to support Yola for decisions. * Sole Rhodes, friend: [phone] family is okay with her getting medical updates. . Prognosis Patient with history of liver disease admitted with STEMI not a candidate for revascularization, now with encephalopathy, LP pending difficult to prognosticate at this time. Will obtain additional information and continue to evaluate for better prognostication. . Code Status: No Code Plan * No known written advanced directives. According to [place] statutes health care prxy decision making falls to the majority of adult children. She has 2 daughters and 1 son (Matthew Leon Desirae). Matthew and Carolyn defer decision making at this time, will be available to support/ assist Yola with medical decisions as needed. Yola Reed, daughter will be serving as HCP decision maker. * NO CODE - DNR/DNI (if extubated family would not want her reintubated). * 10/22/16: Spoke with daughterYola (HCP) via phone to provide medical update including recent test results and plan of care. She appreciates update. She is asking questions about prognosis. Advised we should continue aggressive care for now as we await additional test results. Explained we may have additional concerns if encephalopathy persists. Daughter indicates family has spoken and that patient would not want trach/PEG or continued aggressive care if condition worsens or if no clinical improvement. She asks if I will tell her when the doctors think "it is time." I promised her I would keep her updated, I will call with update again 10/23/16. Advised now is not time. * SYMPTOMS; Pain: on Diprivan appears comfortable. Dyspnea: remains intubated, on CPAP. Encephalopathy: persistent encephalopathy likely multifactorial. * Palliative care will continue to follow to assist with symptom management and further clarification of treatment goals as needed. . (STEPHANIE BENTON) Attestation To help prompt me to consider important information that might be impacting today's encounter and assessment, information from prior notes written by myself or my colleagues may have been "brought forward" into today's note. My signature on this note, however, is an attestation that I personally performed the exam, history, and/or decision-making noted today, and, unless otherwise indicated, the interactions with patient, family, and staff as well as the review of records all occurred today. I also attest that the listed assessment and stated plan reflect my best clinical judgment today based on the combination of historical information, prior notes, and today's exam/ interactions. When time spent is documented, it refers only to time spent today by the signer, or if indicated, combined time spent today by collaborating physician/nurse practitioner. (STEPHANIE BENTON-Jamie) Collaborating MD Comments Chart reviewed. Case discussed with palliative care MEAT TEAM LEAD. Above MEAT TEAM LEAD note reviewed and I concur. . (Kwadwo Hardy MD) STEPHANIE BENTON Oct 22, 2016 14:15 Kwadwo Hardy MD Dec 05, 2016 14:15
[2016-10-22] MEDS: RESP: ALBUTEROL 2.5 MG/IPRATROPIUM 0.5 MG NEB (PRN) INH ×2 (16:15→21:37)
[2016-10-22] MEDS: DEXMEDETOMIDINE 200 MCG/50 ML NS IV SCH ×2 (16:37→22:36)
--- NOTE | 2016-10-22 17:19 | HHI.CCPN ---
Subjective Remarks/Hospital Course Hospital Course: This is a 61-year-old female with an unknown past medical history who was found down and unresponsive by a friend this morning. We do not know when she was last seen normal. We do not know anything about her past medical history. Per EMS, her vital signs were stable. Initially she was a GCS of 3 on scene. Narcan did not improve her mental status. There are significant dried emesis around her mouth. She was brought in by EMS and was intubated. In the emergency department, it was noted that the patient had significant ST elevations in lead V2 through V4. Cardiology was stat consulted. A stat echo was performed. Her labs are remarkable for a troponin of almost 5, but a normal MB ratio. A white count of 19,000. The patient is intubated and obtunded, and unable to provide any history. Critical care medicines were consulted to evaluate and manage her altered mental status, her possible acute coronary syndrome. 1:2: Called to patients bedside due to diaphoresis, oliguria with urine output less than 15 mL per hour for last 2 hours. (previously recorded 750 for last shift, hourly urine output before 2 hours ago unknown). She was tachypneic on mechanical ventilation with respiratory rate in the 30s and was profoundly diaphoretic, peripherally cool. Was able to palpate a pulse but unable to obtain blood pressure measurement. Emergently placed left central venous line bolused NS 250 mL IV and started levophed at 5 mcg/m and SBP was in 130s. Place left femoral art line and placed on Gamal Trac monitoring and CVP monitoring. Bedside cardiac ultrasound demonstrated LV dysfunction but RV appeared dynamic with inadequate filling. No significant pericardial effusion. EKG with anterior lateral ST elevation as seen previously and T wave inversions. CVP 6, CI 2.7 SVV 20, poor skin turgor, dry mucous membranes, collapsible IJ pointed towards volume responsiveness despite elevated BNP and diagnosis of AL. She responded to initial NS 250 bolus at which point levophed was weaned completely off. Started on gentle fluids with LR 100 ml/hr and UOP subsequently 50 ml/hr. CBC demonstrates stable hgb without evidence of bleeding. Being managed conservatively for subacute STEMI with ASA/heparin drip. Troponin increased, CK fraction remains normal. Subjective: 1/2: worsening instability overnight, but clinically appears to be volume responsive. troponins uptrending. still persistently GCS 6 and significantly encephalopathic. creative technologist at bedside for portable EEG, prelim possible ictal activity. 10/20: persistent encephalopathy. hemodynamics have stabilized. now withdraws x 4 , does not open eyes. Dr. Leal added acyclovir and ampicillin last night. recommends LP, which I agree with, now that we have stabilized out from a cardiovascular standpoint. heparin drip on hold. 10/21: LP done yesterday with elevated opening pressure of 20. elevated lymphocytes. normal glucose. persistently encephalopathic. also, sputum growing gee-sensitive klebsiella. 10/22: sitting up in bed, but significantly agitated overnight. continues to withdraw in all 4 extremities, opens eyes to deep stimulation. does not follow commands. RASS -3. discussed with Dr. Su, will try precedex to get off propofol and help with agitated delirium. Objective Vital Signs Date Time Temp Pulse Resp B/P Pulse Ox O2 Delivery O2 Flow Rate FiO2 10/22/16 15:00 89 10/22/16 15:00 99.2 30 133/86 98 10/22/16 07:47 35 10/18/16 10:39 Ventilator Intake and Output 10/21/16 10/21/16 10/22/16 08:00 16:00 00:00 Intake Total 2541 ml 3385 ml Output Total 1050 ml 2700 ml Balance 1491 ml 685 ml Result Diagram: 10/22/16 0457 10/22/16 1320 Objective Remarks gen: middle-aged female, lying in bed, intubated, sedated. critically ill heent: ncat. pupils 2mm, equal, conjugate, reactive. mucous membranes moist. chest: equal chest rise. intubated. clear to auscultation CV: normal rate, regular rhythm. abd: soft, nt, nd. no guarding. extr: trace peripheral edema. distal pulses 2+ neuro: RASS -3. moves all extremities spontaneously. withdraw in all 4 extremities. +cough, +gag, +corneals. does not follow commands. A/P Assessment and Plan Assessment and Plan Assessment: This is a 61-year-old female with a reported history in the medical record of alcoholic cirrhosis, hypothyroidism, chronic morphine use who was found down for an unknown period of time. Her course has been complicated by acute coronary syndrome and myocardial infarction and now persistent encephalopathy. I discussed her care with Dr. Su today. plan to transition to precedex from propofol for agitated delirium. encephalopathy persists. clearly she is off pathway. if we remove life-support, she would . remains critically ill. Active problems: Possible seizures Chronic opiate use Acute coronary syndrome- resolving. Hypertension Acute encephalopathyunknown type Agitated Delirium Alcoholic Cirrhosis Acute hypoxic and hypercarbic respiratory failure Klebsiella Community Acquired Pneumonia Plan: --q1h neuro checks --ativan 2mg iv prn for any witnessed seizure activity --keppra 500mg iv q12h -- neurology following: Dr. Su -- 10/19 MRI brain: no acute findings. -- EEG 10/19: epileptiform discharges with spikes, no overt ictal activity. -- RASS goal 0. -- d/c propofol. start precedex for goal RASS 0. -- hold long-acting sedating meds. trop's downtrending. ok to stop checking. --ASA 325mg daily. --s/p heparin infusion, now on SQH alone. Goal heart rate less than 90 Cardiology following: Dr. Cruz --[facility] when more stable --autodiuresing today. will not add forced diuresis. goal net negative. --continue carvedilol 12.5mg po q12h. -- metop 5mg iv q4h prn for HR > 90 or SBP > 160 -- Labetalol 20mg iv q15m prn for SBP > 160. -- Nicardipine infusion for goal SBP < 160. -- ACEI per cardiology. --Vent bundle --low tidal volume ventilation targeting 6cc/kg IBW --wean fio2 for goal Spo2 > 90% --does not meet SBT criteria today given encephalopathy. --nebs q6h and q2n prn --HOB at 30deg --continue TF, Jevity 1.5, goal of 60. --Nutrition consult --BMP daily --thiamine 100mg iv daily --ammonia 35. unlikely to be the cause of her encephalopathy, but continue Lactulose 30mg po qid as a trial to see if this improves mentation. sputum culture 10/18: gee-sensitive Klebsiella. --blood, urine cultures 10/18: NGTD. -- s/p vancomycin, Flagyl, ampicillin. (10/18 - 10/21) -- Rocephin 1gm iv q24h for anticipated 7 day course for community acquired pneumonia. (stop date 10/25). -- HSV PCR negative. will discuss possible d/c acyclovir with neurology. Daily CBC, BMP Strict I's and O's with Garces catheter placement for accurate monitoring SCDs and SQH for DVT prophylaxis, Protonix for GI prophylaxis. She remains critically ill. This patient remains critically ill with one or more organ systems which are or may become a threat to life. I have spent in excess of 33 minutes discontinuously in the care and management of this patient. This time is exclusive of procedures, and includes, but is not limited to, evaluation of the patient, review of the medical record, discussions with family, consultants, nursing staff, or respiratory therapy, and documentation in the medical record. Edgardo Thakur MD Oct 22, 2016 17:19
[2016-10-23] VITALS (10 sets, daily range): BP systolic 122–165; BP diastolic 65–91; PULSE 71–82; RESP 17–25; TEMP 98.7–99.1; O2SAT 98–100
[2016-10-23] MEDS ORDERED: levETIRAcetam INJ 500 MG in SODIUM CHLORIDE 0.9% INJ 100 ML IV SCH ×2
[2016-10-23] MEDS: levETIRAcetam INJ 500 MG in SODIUM CHLORIDE 0.9% INJ 100 ML IV SCH ×2 (00:01→11:50)
[2016-10-23] MEDS: PROPOFOL 1000 MG/100 ML INJ 100 ML IV SCH (01:37)
[2016-10-23] MEDS: cefTRIAXone INJ 1,000 MG in SODIUM CHLORIDE 0.9% INJ 100 ML IV SCH (03:16)
[2016-10-23 04:17] LABS: HEMATOCRIT 34.8 % (35.0-46.0); MEAN CORPUSCULAR HEMOGLOBIN 31.9 PG (27.0-34.0); MEAN CORPUSCULAR HGB CONC 32.8 % (32.0-36.0); PLATELET COUNT 223 TH/MM3 (150-450); RED BLOOD COUNT 3.59 MIL/MM3 (4.00-5.30); RED CELL DISTRIBUTION WIDTH 13.4 % (11.6-17.2); REVIEW FLAG FINAL; WHITE BLOOD COUNT 11.7 TH/MM3 (4.0-11.0)
[2016-10-23] MEDS: SODIUM CHLORIDE 0.9% IV SCH (04:30)
[2016-10-23] MEDS: ACYCLOVIR IV SCH (04:30)
[2016-10-23 04:45] LABS: BICARBONATE 25.1 MEQ/L (21.0-32.0); POTASSIUM 3.4 MEQ/L (3.5-5.1)
[2016-10-23] MEDS: CHLORHEXIDINE GLUCONATE 2 % 1 PACK (2 CLOTHS) TOP SCH (05:18)
[2016-10-23] MEDS: HEPARIN SODIUM - SQ 10,000 UNITS/ML VIAL SQ SCH ×3 (05:19→21:53)
[2016-10-23] MEDS: INSULIN NovoLIN REGULAR SUPPLEMENTAL SCALE SQ SCH ×4 (05:24→18:00)
[2016-10-23] MEDS: FREE WATER G-TUBE SCH ×3 (05:40→11:50)
[2016-10-23] MEDS: POTASSIUM CHLOR 20 MEQ PREMIX 100 ML IV PRN (06:02)
[2016-10-23] MEDS: DEXMEDETOMIDINE 200 MCG/50 ML NS IV SCH (06:14)
--- NOTE | 2016-10-23 08:35 | HHI.PR ---
Subjective Remarks on sedative still on vent Objective Vital Signs Date Time Temp Pulse Resp B/P Pulse Ox O2 Delivery O2 Flow Rate FiO2 10/23/16 07:25 99 35 10/23/16 03:49 100 35 10/23/16 03:00 25 10/23/16 03:00 78 10/23/16 03:00 99.1 77 25 122/72 99 123/76 10/23/16 01:10 99 35 10/22/16 23:00 25 10/22/16 23:00 80 10/22/16 23:00 99 35 10/22/16 23:00 100.3 82 22 102/66 99 116/61 10/22/16 20:35 98 35 10/22/16 19:00 92 10/22/16 19:00 25 10/22/16 19:00 98.5 90 25 92/66 97 122/69 10/22/16 16:15 99 35 10/22/16 15:00 89 10/22/16 15:00 99.2 83 30 133/86 98 10/22/16 11:00 89 10/22/16 11:00 98.8 89 33 138/89 99 161/87 I/O 10/22/16 10/22/16 10/22/16 10/23/16 10/23/16 10/23/16 07:00 15:00 23:00 07:00 15:00 23:00 Intake Total 2693 ml 1501 ml 1931 ml Output Total 3330 ml 3600 ml 600 ml Balance -637 ml -2099 ml 1331 ml IV Total 885 ml 862 ml 648 ml Tube Feeding 1208 ml 439 ml 683 ml Other 600 ml 200 ml 600 ml Output Urine Total 2030 ml 3550 ml 400 ml Stool Total 1300 ml 50 ml 200 ml Result Diagram: 10/23/16 0356 10/23/16 0356 Objective Remarks pupil = rxt threat nl wiggles fingers bilat for me now to command drowsy Assessment and Plan Assessment and Plan eeg shows sharps not quite pleds fu eeg similar will cover with acyclovir and LP neg so far x protein up could be due to some dm? steroid dose recheck abg ok i still have hope she will awaken i think the best thing is to keep her off all sedatives and rx inc bp with bp meds check additional labs watch renal fxt on acyclovir cont keppra at this point may be met encephalopathy ? precedex better as sits up in bed off sedatives csf protein was up however and not dm 10/23/16 hsv neg much better and following commands now!!! she should do well neurowise met warren vergara wednesday Al Su MD Oct 23, 2016 08:35
[2016-10-23] MEDS: POLYETHYLENE GLYCOL 17 GM PKG PO SCH ×2 (09:00→21:00)
[2016-10-23] MEDS: DOCUSATE SODIUM 50 MG/SENNA 8.6 MG TAB PO SCH ×2 (09:00→21:00)
[2016-10-23] MEDS: CHLORHEXIDINE 0.12% (ORAL KIT) 15 ML CUP MT SCH ×2 (09:16→20:00)
[2016-10-23] MEDS: LACTULOSE SYRUP 20 GM/30 ML CUP PO SCH ×2 (09:16→13:00)
[2016-10-23] MEDS: SODIUM CHLORIDE 0.9% FLUSH 5 ML FLUSH IV FLUSH SCH ×2 (09:16→21:54)
[2016-10-23] MEDS: LISINOPRIL 20 MG TAB PO/NG SCH ×2 (09:17→21:53)
[2016-10-23] MEDS: CARVEDILOL 12.5 MG TAB PO SCH ×2 (09:17→21:53)
[2016-10-23 09:46] LABS: BATH SALTS (MDPV) UR NEG (NEG); ECSTASY (MDMA) UR NEG (NEG); HEROIN (6-ACETYLMORPHINE) UR NEG (NEG); K2 SPICE UR NEG (NEG); OBMETHADONE UR NEG (NEG); OXYCODONE (PERCODAN) NEG (NEG); PHENCYCLIDINE URINE NEG (NEG)
[2016-10-23 11:28] LABS: ANA SCREEN NEG (NEG)
[2016-10-23 13:50] LABS: VITAMIN B6 LESS THAN 2.0 ng/mL (2.1-21.7)
--- NOTE | 2016-10-23 14:20 | PD.CARD.PN ---
Subjective Subjective Remarks Pt now awake, remembers multiple syncope episodes, but no palp or CP Objective Medications Current Medications Medications (Trade) Dose Ordered Sig/Renita Route Start Time Stop Time Status Last Admin Magnesium Oxide 800 mg 800 mg UNSCH PRN PO 10/18/16 11:00 Magnesium Sulfate 4 gm/Sodium Chloride 100 ml @ 50 mls/hr UNSCH PRN IV 10/18/16 11:00 Magnesium Sulfate 2 gm/Sodium Chloride 100 ml @ 50 mls/hr UNSCH PRN IV 10/18/16 11:00 Potassium Chloride 100 ml @ 50 mls/hr Q2H PRN IV 10/18/16 11:00 10/22/16 08:06 Potassium Chloride 100 ml @ 50 mls/hr Q2H PRN IV 10/18/16 11:00 10/23/16 06:02 Potassium Chloride 100 ml @ 50 mls/hr Q2H PRN IV 10/18/16 11:00 10/21/16 09:07 (KCl 40 Meq Premix Inj) 100 ml @ 25 mls/hr UNSCH PRN IV 10/18/16 11:00 (KCl 40 Meq/30 ml Liq) 40 meq UNSCH PRN PO/TUBE 10/18/16 11:00 (KCl 40 Meq/30 ml Liq) 40 meq UNSCH PRN PO/TUBE 10/18/16 11:00 10/22/16 08:06 (K-Phos) 2,000 mg Q4H PRN PO 10/18/16 11:00 Potassium Phosphate 2000 mg 2,000 mg UNSCH PRN PO/TUBE 10/18/16 11:00 Potassium Phosphate 30 mmol/ Sodium Chloride 260 ml @ 42 mls/hr UNSCH PRN IV 10/18/16 11:00 (Sodium Phosphate Inj/NS 250 ml Inj) 250 ml @ 42 mls/hr UNSCH PRN IV 10/18/16 11:00 (D50w (Vial) Inj) 25 ml UNSCH PRN IV PUSH 10/18/16 11:00 Insulin Human Regular 1 1 Q6HR SQ 10/18/16 12:00 10/23/16 05:24 (Diprivan 1000 Mg/100ml Inj) 100 ml @ 0 mls/hr TITRATE IV 10/18/16 11:00 10/23/16 01:37 (NS Flush) 2 ml UNSCH PRN IV FLUSH 10/18/16 11:00 10/20/16 22:03 (NS Flush) 2 ml BID IV FLUSH 10/18/16 21:00 10/23/16 09:16 (Zofran Inj) 4 mg Q6H PRN IV 10/18/16 11:00 (Litzy-Colace) 2 tab BID PO 10/18/16 21:00 10/22/16 21:05 Miscellaneous Information 1 Q361D XX 10/18/16 11:00 (Chlorhexidine 2% Cloth) 3 pack Taper DAILY@04 TOP 10/19/16 04:00 10/15/17 03:59 10/23/16 05:18 (Chlorhexidine 2% Cloth) 3 pack UNSCH PRN TOP 10/18/16 11:00 (Peridex 0.12% Liq) 15 ml BID@08,20 MT 10/18/16 20:00 10/23/16 09:16 (Miralax) 17 gm BID PO 10/18/16 21:00 10/21/16 09:17 (Brethine Inj) 1 mg UNSCH PRN SQ 10/18/16 21:15 (Pill Splitter) 1 ea UNSCH PRN OTHER 10/19/16 14:45 (Lopressor Inj) 5 mg Q4H PRN IV PUSH 10/20/16 09:00 10/20/16 22:02 (Lactulose Liq) 30 ml QID PO 10/20/16 09:00 10/23/16 09:16 (Heparin Inj) 5,000 units Q8HR SQ 10/20/16 22:00 10/23/16 05:19 (Free Water) 300 ml Q6HR G-TUBE 10/21/16 06:00 10/23/16 05:40 Labetalol HCl 20 mg 20 mg Q15M PRN IV PUSH 10/21/16 13:15 Nicardipine HCl 25 mg/Sodium Chloride 260 ml @ 0 mls/hr TITRATE IV 10/21/16 13:15 (Rocephin Inj/NS Inj) 100 ml @ 200 mls/hr Q24H IV 10/22/16 04:00 10/24/16 06:00 10/23/16 03:16 (Coreg) 25 mg Q12HR PO 1/5/17 09:00 10/23/16 09:17 Lisinopril 20 mg 20 mg Q12HR PO/NG 10/22/16 09:00 10/23/16 09:17 Dexmedetomidine HCl 50 ml @ 0 mls/hr TITRATE IV 10/22/16 17:00 10/23/16 06:14 (Keppra Inj/NS Inj) 105 ml @ 420 mls/hr Q12H IV 10/23/16 00:00 10/23/16 11:50 (Prevacid Odt) 30 mg DAILY NG 10/23/16 10:00 Vital Signs / I&O Vital Signs Date Time Temp Pulse Resp B/P Pulse Ox O2 Delivery O2 Flow Rate FiO2 10/23/16 11:30 99 Nasal Cannula 4 10/23/16 11:30 99 Nasal Cannula 4.00 10/23/16 11:00 98.9 76 25 133/86 99 10/23/16 11:00 76 10/23/16 08:00 78 10/23/16 08:00 98.9 75 25 122/78 99 127/65 10/23/16 07:25 99 35 10/23/16 03:49 100 35 10/23/16 03:00 25 10/23/16 03:00 78 10/23/16 03:00 99.1 77 25 122/72 99 123/76 10/23/16 01:10 99 35 10/22/16 23:00 25 10/22/16 23:00 80 10/22/16 23:00 99 35 10/22/16 23:00 100.3 82 22 102/66 99 116/61 10/22/16 20:35 98 35 10/22/16 19:00 92 10/22/16 19:00 25 10/22/16 19:00 98.5 90 25 92/66 97 122/69 10/22/16 16:15 99 35 10/22/16 15:00 89 10/22/16 15:00 99.2 83 30 133/86 98 I/O 10/22/16 10/22/16 10/22/16 10/23/16 10/23/16 10/23/16 07:00 15:00 23:00 07:00 15:00 23:00 Intake Total 2693 ml 1501 ml 1931 ml Output Total 3330 ml 3600 ml 600 ml Balance -637 ml -2099 ml 1331 ml IV Total 885 ml 862 ml 648 ml Tube Feeding 1208 ml 439 ml 683 ml Other 600 ml 200 ml 600 ml Output Urine Total 2030 ml 3550 ml 400 ml Stool Total 1300 ml 50 ml 200 ml Physical Exam GENERAL: Well developed, well nourished. No acute distress. HEENT: Jugular venous pressure is normal. CHEST: Lungs decreased and wheeze to auscultation bilaterally. Unlabored respiratory effort. CARDIAC: Regular rate and rhythm without S3, S4, or murmur. ABDOMEN: Soft, nontender, no hepatosplenomegaly. Bowel sounds present. EXTREMITIES: No clubbing, cyanosis, or edema. Laboratory Laboratory Tests Test 10/23/16 03:56 White Blood Count 11.7 TH/MM3 Red Blood Count 3.59 MIL/MM3 Hemoglobin 11.4 GM/DL Hematocrit 34.8 % Mean Corpuscular Volume 97.0 FL Mean Corpuscular Hemoglobin 31.9 PG Mean Corpuscular Hemoglobin 32.8 % Concent Red Cell Distribution Width 13.4 % Platelet Count 223 TH/MM3 Mean Platelet Volume 8.4 FL Sodium Level 145 MEQ/L Potassium Level 3.4 MEQ/L Chloride Level 111 MEQ/L Carbon Dioxide Level 25.1 MEQ/L Anion Gap 9 MEQ/L Blood Urea Nitrogen 19 MG/DL Creatinine 0.70 MG/DL Estimat Glomerular Filtration 85 ML/MIN Rate Random Glucose 163 MG/DL Calcium Level 7.8 MG/DL Assessment and Plan Assessment and Plan NSTEMI- likely secondary CT -geo nuc stress in am Cardiomyopathy- global HK with EF 40-45% - metoprolol and lisinopril HTN- Resp Failure -on NC AMS- per neuro Renal Insufficiency- Cait Cruz MD Oct 23, 2016 14:20
[2016-10-23] MEDS ORDERED: HYDROmorphone HCL PF 1 MG/ML VIAL IV PUSH PRN (15:00)
[2016-10-23 15:20] LABS: CSF CRYPTOCOCCUS AG CONF ND (NOT DETECTD)
[2016-10-23 16:01] LABS: MRSA PCR POSITIVE (NEGATIVE); STAPH AUREUS PCR POSITIVE (NEGATIVE)
--- NOTE | 2016-10-23 16:08 | HHI.CCPN ---
Subjective Remarks/Hospital Course Hospital Course: This is a 61-year-old female with an unknown past medical history who was found down and unresponsive by a friend this morning. We do not know when she was last seen normal. We do not know anything about her past medical history. Per EMS, her vital signs were stable. Initially she was a GCS of 3 on scene. Narcan did not improve her mental status. There are significant dried emesis around her mouth. She was brought in by EMS and was intubated. In the emergency department, it was noted that the patient had significant ST elevations in lead V2 through V4. Cardiology was stat consulted. A stat echo was performed. Her labs are remarkable for a troponin of almost 5, but a normal MB ratio. A white count of 19,000. The patient is intubated and obtunded, and unable to provide any history. Critical care medicines were consulted to evaluate and manage her altered mental status, her possible acute coronary syndrome. 1:2: Called to patients bedside due to diaphoresis, oliguria with urine output less than 15 mL per hour for last 2 hours. (previously recorded 750 for last shift, hourly urine output before 2 hours ago unknown). She was tachypneic on mechanical ventilation with respiratory rate in the 30s and was profoundly diaphoretic, peripherally cool. Was able to palpate a pulse but unable to obtain blood pressure measurement. Emergently placed left central venous line bolused NS 250 mL IV and started levophed at 5 mcg/m and SBP was in 130s. Place left femoral art line and placed on Gamal Trac monitoring and CVP monitoring. Bedside cardiac ultrasound demonstrated LV dysfunction but RV appeared dynamic with inadequate filling. No significant pericardial effusion. EKG with anterior lateral ST elevation as seen previously and T wave inversions. CVP 6, CI 2.7 SVV 20, poor skin turgor, dry mucous membranes, collapsible IJ pointed towards volume responsiveness despite elevated BNP and diagnosis of NV. She responded to initial NS 250 bolus at which point levophed was weaned completely off. Started on gentle fluids with LR 100 ml/hr and UOP subsequently 50 ml/hr. CBC demonstrates stable hgb without evidence of bleeding. Being managed conservatively for subacute STEMI with ASA/heparin drip. Troponin increased, CK fraction remains normal. Subjective: 1/2: worsening instability overnight, but clinically appears to be volume responsive. troponins uptrending. still persistently GCS 6 and significantly encephalopathic. office technician at bedside for portable EEG, prelim possible ictal activity. 10/20: persistent encephalopathy. hemodynamics have stabilized. now withdraws x 4 , does not open eyes. Dr. Leal added acyclovir and ampicillin last night. recommends LP, which I agree with, now that we have stabilized out from a cardiovascular standpoint. heparin drip on hold. 10/21: LP done yesterday with elevated opening pressure of 20. elevated lymphocytes. normal glucose. persistently encephalopathic. also, sputum growing gee-sensitive klebsiella. 10/22: sitting up in bed, but significantly agitated overnight. continues to withdraw in all 4 extremities, opens eyes to deep stimulation. does not follow commands. RASS -3. discussed with Dr. Su, will try precedex to get off propofol and help with agitated delirium. 10/23: patient awake, alert, and oriented this morning. passed SBT. on minimal precedex/propofol. hemodynamically stable. Objective Vital Signs Date Time Temp Pulse Resp B/P Pulse Ox O2 Delivery O2 Flow Rate FiO2 10/23/16 11:30 99 Nasal Cannula 4 10/23/16 11:00 98.9 76 25 133/86 10/23/16 07:25 35 Intake and Output 10/22/16 10/22/16 10/23/16 08:00 16:00 00:00 Intake Total 2693 ml 1501 ml Output Total 3330 ml 3600 ml Balance -637 ml -2099 ml Result Diagram: 10/23/16 0356 10/23/16 1400 Objective Remarks gen: middle-aged female, lying in bed, intubated heent: ncat. pupils 2mm, equal, conjugate, reactive. mucous membranes moist. chest: equal chest rise. intubated. clear to auscultation CV: normal rate, regular rhythm. abd: soft, nt, nd. no guarding. extr: trace peripheral edema. distal pulses 2+ neuro: RASS -1. follows commands in all 4 extremities. A/P Assessment and Plan Assessment and Plan Assessment: This is a 61-year-old female with a reported history in the medical record of alcoholic cirrhosis, hypothyroidism, chronic morphine use who was found down for an unknown period of time. Her course has been complicated by acute coronary syndrome and myocardial infarction and now persistent encephalopathy. She is no longer encephalopathic. It is very unclear to me what the etiology of the encephalopathy was, but it is clearly improved. I think it is safe to proceed with extubation since she has passed SBT. Active problems: Possible seizures Chronic opiate use Acute coronary syndrome- resolving. Hypertension Acute encephalopathyunknown type Agitated Delirium- resolving. Alcoholic Cirrhosis Acute hypoxic and hypercarbic respiratory failure- resolving. Klebsiella Community Acquired Pneumonia Plan: --liberalize neuro checks --ativan 2mg iv prn for any witnessed seizure activity --keppra 500mg iv q12h -- neurology following: Dr. Su -- 10/19 MRI brain: no acute findings. -- EEG 10/19: epileptiform discharges with spikes, no overt ictal activity. -- tylenol, oxycodone, dilaudid as needed for pain. trop's downtrending. ok to stop checking. --ASA 325mg daily. --s/p heparin infusion, now on SQH alone. Goal heart rate less than 90 Cardiology following: Dr. Cruz --autodiuresing today. will not add forced diuresis. goal net negative. --continue carvedilol 25mg po q12h. --continue lisinopril 20mg po q12h. -- metop 5mg iv q4h prn for HR > 90 or SBP > 160 -- Labetalol 20mg iv q15m prn for SBP > 160. --proceed with extubation now that we have passed SBT. --wean o2 by NC for goal spo2 > 92%. --nursing bedside swallow eval. if she passes, advance to [facility]. if she fails, will make NPO and order formal speech and swallow eval. --I.S. to bedside. --OOB to chair with assist. --PT consult. --BMP daily --thiamine 100mg iv daily --ammonia 35. now that she is awake, will discontinue Lactulose. sputum culture 10/18: gee-sensitive Klebsiella. today, sputum culture grew MRSA ( 5 days post culture). she is clinically improved, afebrile, without oxygen requirement. I think she may be colonized with MRSA and this is not a clinical MRSA pneumonia, given that she is improving. She also has a resolving CLAUDY, so I think the risks of exposing her to additional vancomycin outweighs the benefits. --blood, urine cultures 10/18: NGTD. -- s/p vancomycin, Flagyl, ampicillin. (10/18 - 10/21) -- Rocephin 1gm iv q24h for anticipated 7 day course for community acquired pneumonia. (stop date 10/25). -- HSV PCR negative. off acyclovir. Daily CBC, BMP Strict I/Os. will remove Garces later today. SCDs and SQH for DVT prophylaxis, Protonix for GI prophylaxis. Dispo: If she remains stable throughout the day, she would be appropriate for transfer to the floor tomorrow with hospitalist following. Edgardo Thakur MD Oct 23, 2016 16:08
[2016-10-23 17:55] LABS: VDRL CSF NON-REACTIVE (())
[2016-10-23] MEDS: LANSOPRAZOLE SOLUTAB 30 MG TAB NG SCH (18:08)
[2016-10-23] MEDS: RESP: ALBUTEROL 2.5 MG/IPRATROPIUM 0.5 MG NEB (PRN) INH (18:47)
[2016-10-23] MEDS: ALBUTEROL SULFATE 90 MCG/ACT HFA 18 GM INHALER INH SCH (21:00)
[2016-10-24] VITALS (9 sets, daily range): BP systolic 125–152; BP diastolic 76–89; PULSE 77–83; RESP 16–18; TEMP 98.6–99.6; O2SAT 92–99
[2016-10-24] MEDS: levETIRAcetam INJ 500 MG in SODIUM CHLORIDE 0.9% INJ 100 ML IV SCH ×2 (00:09→12:44)
[2016-10-24] MEDS: ALBUTEROL SULFATE 90 MCG/ACT HFA 18 GM INHALER INH SCH ×3 (00:36→23:18)
[2016-10-24] MEDS: CHLORHEXIDINE GLUCONATE 2 % 1 PACK (2 CLOTHS) TOP SCH (04:00)
[2016-10-24 04:23] LABS: HEMATOCRIT 35.2 % (35.0-46.0); MEAN CELL VOLUME 96.5 FL (80.0-100.0); MEAN CORPUSCULAR HEMOGLOBIN 32.5 PG (27.0-34.0); MEAN CORPUSCULAR HGB CONC 33.7 % (32.0-36.0); PLATELET COUNT 209 TH/MM3 (150-450); RED BLOOD COUNT 3.65 MIL/MM3 (4.00-5.30); RED CELL DISTRIBUTION WIDTH 13.4 % (11.6-17.2); REVIEW FLAG FINAL; WHITE BLOOD COUNT 9.7 TH/MM3 (4.0-11.0)
[2016-10-24] MEDS: cefTRIAXone INJ 1,000 MG in SODIUM CHLORIDE 0.9% INJ 100 ML IV SCH (04:33)
[2016-10-24 05:05] LABS: BICARBONATE 27.9 MEQ/L (21.0-32.0); POTASSIUM 3.2 MEQ/L (3.5-5.1)
[2016-10-24] MEDS: POTASSIUM CHLOR 20 MEQ PREMIX 100 ML IV PRN (05:16)
[2016-10-24] MEDS: HEPARIN SODIUM - SQ 10,000 UNITS/ML VIAL SQ SCH ×3 (05:16→23:01)
[2016-10-24] MEDS: INSULIN NovoLIN REGULAR SUPPLEMENTAL SCALE SQ SCH ×3 (05:31→12:00)
[2016-10-24] MEDS: CHLORHEXIDINE 0.12% (ORAL KIT) 15 ML CUP MT SCH ×2 (08:00→20:00)
--- NOTE | 2016-10-24 08:24 | HHI.CCPN ---
Subjective Remarks/Hospital Course Hospital Course: This is a 61-year-old female with an unknown past medical history who was found down and unresponsive by a friend this morning. We do not know when she was last seen normal. We do not know anything about her past medical history. Per EMS, her vital signs were stable. Initially she was a GCS of 3 on scene. Narcan did not improve her mental status. There are significant dried emesis around her mouth. She was brought in by EMS and was intubated. In the emergency department, it was noted that the patient had significant ST elevations in lead V2 through V4. Cardiology was stat consulted. A stat echo was performed. Her labs are remarkable for a troponin of almost 5, but a normal MB ratio. A white count of 19,000. The patient is intubated and obtunded, and unable to provide any history. Critical care medicines were consulted to evaluate and manage her altered mental status, her possible acute coronary syndrome. 1:2: Called to patients bedside due to diaphoresis, oliguria with urine output less than 15 mL per hour for last 2 hours. (previously recorded 750 for last shift, hourly urine output before 2 hours ago unknown). She was tachypneic on mechanical ventilation with respiratory rate in the 30s and was profoundly diaphoretic, peripherally cool. Was able to palpate a pulse but unable to obtain blood pressure measurement. Emergently placed left central venous line bolused NS 250 mL IV and started levophed at 5 mcg/m and SBP was in 130s. Place left femoral art line and placed on Gamal Trac monitoring and CVP monitoring. Bedside cardiac ultrasound demonstrated LV dysfunction but RV appeared dynamic with inadequate filling. No significant pericardial effusion. EKG with anterior lateral ST elevation as seen previously and T wave inversions. CVP 6, CI 2.7 SVV 20, poor skin turgor, dry mucous membranes, collapsible IJ pointed towards volume responsiveness despite elevated BNP and diagnosis of WI. She responded to initial NS 250 bolus at which point levophed was weaned completely off. Started on gentle fluids with LR 100 ml/hr and UOP subsequently 50 ml/hr. CBC demonstrates stable hgb without evidence of bleeding. Being managed conservatively for subacute STEMI with ASA/heparin drip. Troponin increased, CK fraction remains normal. Subjective: 1/2: worsening instability overnight, but clinically appears to be volume responsive. troponins uptrending. still persistently GCS 6 and significantly encephalopathic. ict support technicians at bedside for portable EEG, prelim possible ictal activity. 10/20: persistent encephalopathy. hemodynamics have stabilized. now withdraws x 4 , does not open eyes. Dr. Leal added acyclovir and ampicillin last night. recommends LP, which I agree with, now that we have stabilized out from a cardiovascular standpoint. heparin drip on hold. 10/21: LP done yesterday with elevated opening pressure of 20. elevated lymphocytes. normal glucose. persistently encephalopathic. also, sputum growing gee-sensitive klebsiella. 10/22: sitting up in bed, but significantly agitated overnight. continues to withdraw in all 4 extremities, opens eyes to deep stimulation. does not follow commands. RASS -3. discussed with Dr. Su, will try precedex to get off propofol and help with agitated delirium. 10/23: patient awake, alert, and oriented this morning. passed SBT. on minimal precedex/propofol. hemodynamically stable. 10/24: extubated and doing well this AM. stable for transfer to floor. swenson, CVL , art line discontinued. tolerating clear liquid diet. no complaints. Objective Vital Signs Date Time Temp Pulse Resp B/P Pulse Ox O2 Delivery O2 Flow Rate FiO2 10/24/16 03:00 99.0 80 16 140/77 99 10/23/16 21:14 Nasal Cannula 2.00 10/23/16 07:25 35 Intake and Output 10/23/16 10/23/16 10/24/16 08:00 16:00 00:00 Intake Total 1931 ml 866 ml Output Total 600 ml 1200 ml Balance 1331 ml -334 ml Result Diagram: 10/24/16 04110/24/16 041 Objective Remarks gen: middle-aged female, sitting up in a chair, no acute distress. heent: ncat. pupils 2mm, equal, conjugate, reactive. mucous membranes moist. chest: equal chest rise. clear to auscultation. NC o2. CV: normal rate, regular rhythm. abd: soft, nt, nd. no guarding. extr: trace peripheral edema. distal pulses 2+ neuro: RASS 0. follows commands in all 4 extremities. A/P Assessment and Plan Assessment and Plan Assessment: This is a 61-year-old female with a reported history in the medical record of alcoholic cirrhosis, hypothyroidism, chronic morphine use who was found down for an unknown period of time. Her course has been complicated by acute coronary syndrome and myocardial infarction and now persistent encephalopathy. She is no longer encephalopathic. It is very unclear to me what the etiology of the encephalopathy was, but it is clearly improved. I think she is stable for transfer to the floor. Active problems: Possible seizures Chronic opiate use Acute coronary syndrome- resolving. Hypertension Acute encephalopathyunknown type Agitated Delirium- resolving. Alcoholic Cirrhosis Acute hypoxic and hypercarbic respiratory failure- resolving. Klebsiella Community Acquired Pneumonia Plan: --liberalize neuro checks --ativan 2mg iv prn for any witnessed seizure activity --keppra 500mg iv q12h -- neurology following: Dr. Su -- 10/19 MRI brain: no acute findings. -- EEG 10/19: epileptiform discharges with spikes, no overt ictal activity. -- tylenol, oxycodone, dilaudid as needed for pain. trop's downtrending. ok to stop checking. --ASA 325mg daily. --s/p heparin infusion, now on SQH alone. Goal heart rate less than 90 Cardiology following: Dr. Cruz --autodiuresing today. will not add forced diuresis. goal net negative. --continue carvedilol 25mg po q12h. --continue lisinopril 20mg po q12h. -- metop 5mg iv q4h prn for HR > 90 or SBP > 160 -- Labetalol 20mg iv q15m prn for SBP > 160. --wean o2 by NC for goal spo2 > 92%. --advance diet to heart healthy as tolerated. --I.S. to bedside. --OOB to chair with assist. --PT consult. --BMP daily --thiamine 100mg iv daily --ammonia 35. s/p Lactulose. sputum culture 10/18: gee-sensitive Klebsiella. sputum culture grew MRSA (5 days post culture). she is clinically improved, afebrile, without oxygen requirement. I think she may be colonized with MRSA and this is not a clinical MRSA pneumonia, given that she is improving. She also has a resolving CLAUDY, so I think the risks of exposing her to additional vancomycin outweighs the benefits. --blood, urine cultures 1/1: NGTD. -- s/p vancomycin, Flagyl, ampicillin. (10/18 - 10/21) -- Rocephin 1gm iv q24h for anticipated 7 day course for community acquired pneumonia. (stop date 10/25). -- HSV PCR negative. off acyclovir. Daily CBC, BMP Strict I/Os. Swenson out. SCDs and SQH for DVT prophylaxis, Protonix for GI prophylaxis. Dispo: transfer to floor. hospitalist consult. Edgardo Thakur MD Oct 24, 2016 08:24
[2016-10-24] MEDS: LISINOPRIL 20 MG TAB PO/NG SCH ×2 (09:04→23:02)
[2016-10-24] MEDS: LANSOPRAZOLE SOLUTAB 30 MG TAB NG SCH (09:05)
[2016-10-24] MEDS: SODIUM CHLORIDE 0.9% FLUSH 5 ML FLUSH IV FLUSH SCH ×2 (09:05→23:03)
[2016-10-24] MEDS: POLYETHYLENE GLYCOL 17 GM PKG PO SCH ×2 (09:05→23:02)
[2016-10-24] MEDS: CARVEDILOL 12.5 MG TAB PO SCH ×2 (09:05→23:02)
[2016-10-24] MEDS: DOCUSATE SODIUM 50 MG/SENNA 8.6 MG TAB PO SCH ×2 (09:07→23:02)
--- NOTE | 2016-10-24 10:03 | PD.CARD.PN ---
Subjective Subjective Remarks The patient is awake and alert. She denies chest pain, shortness of breath, palpitations or GI symptoms. Telemetry reveals sinus rhythm. Echocardiogram reveals mild left ventricular dysfunction. Objective Medications Reviewed Vital Signs / I&O Vital Signs Date Time Temp Pulse Resp B/P Pulse Ox O2 Delivery O2 Flow Rate FiO2 10/24/16 09:15 95 21 10/24/16 07:00 99.6 83 17 152/89 92 10/24/16 07:00 83 10/24/16 03:00 99.0 80 16 140/77 99 10/24/16 03:00 83 10/23/16 23:00 71 10/23/16 23:00 98.7 80 18 127/73 99 10/23/16 21:14 Nasal Cannula 2.00 10/23/16 19:00 79 10/23/16 19:00 99.1 81 17 153/90 98 Arterial Line 10/23/16 15:00 98.9 82 25 165/91 99 10/23/16 15:00 82 10/23/16 11:30 99 Nasal Cannula 4 10/23/16 11:30 99 Nasal Cannula 4.00 10/23/16 11:00 98.9 76 25 133/86 99 10/23/16 11:00 76 I/O 10/23/16 10/23/16 10/23/16 10/24/16 10/24/16 10/24/16 07:00 15:00 23:00 07:00 15:00 23:00 Intake Total 1931 ml 866 ml 680 ml Output Total 600 ml 1200 ml 700 ml Balance 1331 ml -334 ml -20 ml Intake Oral 100 ml 480 ml IV Total 648 ml 370 ml 200 ml Tube Feeding 683 ml 256 ml Tube Irrigant 140 ml Other 600 ml Output Urine Total 400 ml 700 ml 600 ml Stool Total 200 ml 500 ml 100 ml Bladder Scan Volume Amount 536 ml Physical Exam GENERAL: Well-nourished, well-developed patient in no apparent distress. SKIN: Warm and dry. NECK: JVD normal - less than or equal to 5 cm H20. CARDIOVASCULAR: Regular rate and rhythm without murmurs, gallops, or rubs. RESPIRATORY: Decreased breath sounds - equal bilaterally. No accessory muscle use. No wheezes, rales or rubs. PERIPHERY: No cyanosis, or edema. Laboratory Laboratory Tests Test 10/23/16 10/23/16 10/24/16 10:30 14:00 04:12 Nasal Screen MRSA (PCR) POSITIVE Staphylococcus aureus POSITIVE (PCR)(LAB) Potassium Level 3.7 MEQ/L 3.2 MEQ/L White Blood Count 9.7 TH/MM3 Red Blood Count 3.65 MIL/MM3 Hemoglobin 11.8 GM/DL Hematocrit 35.2 % Mean Corpuscular Volume 96.5 FL Mean Corpuscular Hemoglobin 32.5 PG Mean Corpuscular Hemoglobin 33.7 % Concent Red Cell Distribution Width 13.4 % Platelet Count 209 TH/MM3 Mean Platelet Volume 8.3 FL Sodium Level 142 MEQ/L Chloride Level 105 MEQ/L Carbon Dioxide Level 27.9 MEQ/L Anion Gap 9 MEQ/L Blood Urea Nitrogen 14 MG/DL Creatinine 0.57 MG/DL Estimat Glomerular Filtration 108 ML/MIN Rate Random Glucose 96 MG/DL Calcium Level 7.9 MG/DL Imaging Reviewed Assessment and Plan Assessment and Plan Problems: Encephalopathyresolved Elevated troponin possibly consistent with myocardial infarction versus acute medical illness Anemia Supposedly alcoholic cirrhosis Chronic pain with opiate dependence Tobacco abuse Recommendations: Electrolyte optimization Continue present medical regimen. The patient is not on baby aspirin and should be on daily. I do not know if there was an issue with this but the primary service needs to start this. Ideally we would want her and statins depending on her liver status. DVT prophylaxis Move out to the stepdown unit if okay with primary service The patient will need some that her evaluation of her underlying coronary status. I do not feel we need to jump to a catheterization. I feel the best route would be a CT angiogram to better assess her coronary arteries. She would need to be premedicated with beta blockers to slow her heart rate per radiology. If there was significant coronary artery disease then we can better justify catheterization. I will leave further management and test orders to the primary service. We will be available if needed. Salbador Ann MD Oct 24, 2016 10:03
[2016-10-25] VITALS (9 sets, daily range): BP systolic 127–142; BP diastolic 70–85; PULSE 71–88; RESP 18; TEMP 97.9–98.9; O2SAT 94–96
[2016-10-25] MEDS: CHLORHEXIDINE GLUCONATE 2 % 1 PACK (2 CLOTHS) TOP SCH (04:00)
[2016-10-25] MEDS: HEPARIN SODIUM - SQ 10,000 UNITS/ML VIAL SQ SCH ×3 (06:01→20:45)
[2016-10-25 07:13] LABS: HEMATOCRIT 38.3 % (35.0-46.0); MEAN CELL VOLUME 97.8 FL (80.0-100.0); MEAN CORPUSCULAR HEMOGLOBIN 32.2 PG (27.0-34.0); MEAN CORPUSCULAR HGB CONC 32.9 % (32.0-36.0); PLATELET COUNT 220 TH/MM3 (150-450); RED BLOOD COUNT 3.91 MIL/MM3 (4.00-5.30); RED CELL DISTRIBUTION WIDTH 13.4 % (11.6-17.2); REVIEW FLAG FINAL; WHITE BLOOD COUNT 8.5 TH/MM3 (4.0-11.0)
[2016-10-25 07:43] LABS: BICARBONATE 25.1 MEQ/L (21.0-32.0); POTASSIUM 4.1 MEQ/L (3.5-5.1)
[2016-10-25] MEDS: CHLORHEXIDINE 0.12% (ORAL KIT) 15 ML CUP MT SCH ×2 (08:00→20:00)
[2016-10-25] MEDS: LISINOPRIL 20 MG TAB PO/NG SCH ×2 (08:24→20:47)
[2016-10-25] MEDS: LANSOPRAZOLE SOLUTAB 30 MG TAB NG SCH (08:24)
[2016-10-25] MEDS: CARVEDILOL 12.5 MG TAB PO SCH ×2 (08:24→20:46)
[2016-10-25] MEDS: SODIUM CHLORIDE 0.9% FLUSH 5 ML FLUSH IV FLUSH SCH ×2 (08:25→20:49)
[2016-10-25] MEDS: POLYETHYLENE GLYCOL 17 GM PKG PO SCH ×2 (08:29→20:50)
[2016-10-25] MEDS: DOCUSATE SODIUM 50 MG/SENNA 8.6 MG TAB PO SCH ×2 (08:29→20:50)
[2016-10-25] MEDS: ALBUTEROL SULFATE 90 MCG/ACT HFA 18 GM INHALER INH SCH ×2 (08:29→20:50)
[2016-10-25] MEDS: levETIRAcetam INJ 500 MG in SODIUM CHLORIDE 0.9% INJ 100 ML IV SCH ×3 (12:00)
[2016-10-25] MEDS ORDERED: SULF1TAB23 PO (12:37)
[2016-10-25] MEDS ORDERED: PROC10TA PO (12:37)
[2016-10-25] MEDS ORDERED: MORP1TAB25 PO (12:37)
[2016-10-25] MEDS ORDERED: NABU1TAB37 PO (12:37)
[2016-10-25] MEDS ORDERED: GABA100C4 PO (12:37)
[2016-10-25] MEDS ORDERED: LACT10SO PO (12:37)
[2016-10-25] MEDS ORDERED: AMOX500C PO (12:37)
[2016-10-25] MEDS ORDERED: MULT1TAB84 PO (12:37)
[2016-10-25] MEDS ORDERED: VERA40TA PO (12:37)
[2016-10-25] MEDS ORDERED: OMEP20CA2 PO (12:37)
[2016-10-25] MEDS ORDERED: LEVO125T4 PO (12:37)
[2016-10-25] MEDS ORDERED: ALBUAER3 INH (12:37)
--- NOTE | 2016-10-25 17:36 | HHI.PR ---
Subjective Remarks feels great, no complains history of chronic pain- ff by Dr. Barahona Objective Vitals Vital Signs Date Time Temp Pulse Resp B/P Pulse Ox O2 Delivery O2 Flow Rate FiO2 10/25/16 15:47 98.9 76 18 142/85 95 10/25/16 15:26 87 10/25/16 12:19 98.1 74 18 135/83 94 10/25/16 12:07 87 10/25/16 10:01 96 21 10/25/16 08:00 95 Room Air 10/25/16 06:53 71 10/25/16 03:00 82 10/25/16 03:00 98.9 82 18 127/74 96 10/24/16 23:00 79 10/24/16 23:00 98.7 79 18 133/80 96 10/24/16 20:06 95 21 10/24/16 19:00 98.6 77 18 128/78 96 10/24/16 19:00 77 I/O 10/24/16 10/24/16 10/24/16 10/25/16 10/25/16 10/25/16 07:00 15:00 23:00 07:00 15:00 23:00 Intake Total 680 ml 1000 ml 580 ml Output Total 700 ml 1600 ml 0 ml Balance -20 ml -600 ml 580 ml Intake Oral 480 ml 850 ml 480 ml IV Total 200 ml 150 ml 100 ml Output Urine Total 600 ml 1300 ml Stool Total 100 ml 300 ml 0 ml Bladder Scan Volume Amount 536 ml # Voids 3 Result Diagram: 10/25/16 0625 10/25/16 0625 Imaging Last Impressions Chest X-Ray 10/19/16 0600 Signed Impressions: Service Date/Time: Wednesday, October 19, 2016 05:22 - CONCLUSION: 1. Lines and tubes. 2. No infiltrate left lower lobe. 3. Tiny effusions. Sandoval Purvis Jr., MD Brain MRI 10/19/16 0000 Signed Impressions: Service Date/Time: Wednesday, October 19, 2016 16:31 - CONCLUSION: Noncontrast MRI appearance of the brain within normal limits for a patient this age. No acute intracranial abnormality is demonstrated. Sinus disease noted. Lucas Montes MD Aorta CTA 10/18/16 0945 Signed Impressions: Service Date/Time: Tuesday, October 18, 2016 10:08 - CONCLUSION: 1. No evidence for aortic dissection. 2. Tree in bud infiltrate left lower lobe. Evangelist Hurley MD Head CT 10/18/16 0940 Signed Impressions: Service Date/Time: Tuesday, October 18, 2016 10:00 - CONCLUSION: Normal examination. Evangelist Hurley MD Objective Remarks awake and alert, oriented x 3 anicteric lungs no rales or wheezes regular rhythm abdomens soft, nontender extremities no edema neuro exam- unremarkable A/P Assessment and Plan Assessment: This is a 61-year-old female with a reported history in the medical record of alcoholic cirrhosis, hypothyroidism, chronic morphine use who was found down for an unknown period of time. Her course has been complicated by acute coronary syndrome and myocardial infarction and now persistent encephalopathy. She is no longer encephalopathic. It is very unclear to me what the etiology of the encephalopathy was, but it is clearly improved. I think she is stable for transfer to the floor. Possible seizures-- EEG 10/19: epileptiform discharges with spikes, no overt ictal activity. MRI brain 10/19- no acute findings- -change IV Keppra to po 500 mg po bid -Dr. Max ff. Head CT negative Chronic opiate use - continue on roxicodone she ff up with Dr. Barahona as OP for pain management Acute coronary syndrome- Hypertension continue on LOpressor, Norvasc, Lasix --ASAdaily --s/p heparin infusion, now on SQH alone. --continue carvedilol 25mg po q12h. --continue lisinopril 20mg po q12h. Goal heart rate less than 90 Cardiology following: Dr. Cruz Acute encephalopathyunknown type- resolved Agitated Delirium- resolved Alcoholic Cirrhosis- counselled. Acute hypoxic and hypercarbic respiratory failure- Underlying COPD- still smokes very motivated to stop smoking continue Albuterol I, spiriva MDI Klebsiella Community Acquired Pneumonia- completed course of antibitoics 10/25 Dc planning - tomorrow with home health care Vikram Chong MD Oct 25, 2016 17:36 --BMP daily --thiamine 100mg iv daily --ammonia 35. s/p Lactulose. sputum culture 10/18: gee-sensitive Klebsiella. sputum culture grew MRSA (5 days post culture). she is clinically improved, afebrile, without oxygen requirement. I think she may be colonized with MRSA and this is not a clinical MRSA pneumonia, given that she is improving. She also has a resolving CLAUDY, so I think the risks of exposing her to additional vancomycin outweighs the benefits. --blood, urine cultures 10/18: NGTD. -- s/p vancomycin, Flagyl, ampicillin. (10/18 - 10/21) -- Rocephin 1gm iv q24h for anticipated 7 day course for community acquired pneumonia. (stop date 10/25). -- HSV PCR negative. off acyclovir. Daily CBC, BMP Strict I/Os. Garces out. SCDs and SQH for DVT prophylaxis, Protonix for GI prophylaxis. Dispo: transfer to floor. hospitalist consult. Vikram Chong MD Oct 25, 2016 17:36 Vikram Chong MD Oct 25, 2016 17:36
[2016-10-25] MEDS: TIOTROPIUM BROMIDE 18 MCG INH INH SCH (18:00)
--- NOTE | 2016-10-25 18:04 | HHI.FF ---
Face to Face Verification Diagnosis: (1) ST elevation [place] (STEMI) (2) Altered mental status (3) Left lower lobe pneumonia Physical Therapy Order: Improve ambulation Speech Therapy Order: To Improve: Speech and communication skills, Cognitive skills Home Health Nursing Order: Medical education Signs/symptoms of disease process Nursing assessment with vital signs Home Health Aide Order: To Assist In: spinning frame cleaner and meal prep Staff Radiologist Order: To Evaluate: Living conditions/environment, Support services I have seen patient Coco Stanton on 10/25/16. My clinical findings support the need for the requested home health care services because: Patient has SOB Deconditioned w/ increased weakness I certify that my clinical findings support that this patient is homebound because: Need for psychosocial assistance Poor cardiac reserve Vikram Chong MD Oct 25, 2016 18:04
[2016-10-25] MEDS ORDERED: levETIRAcetam 500 MG TAB PO SCH (21:00)
[2016-10-26 03:00] VITALS: BP 138/82; PULSE 74; RESP 18; TEMP 97.9; O2SAT 93
[2016-10-26] MEDS: CHLORHEXIDINE GLUCONATE 2 % 1 PACK (2 CLOTHS) TOP SCH (04:00)
[2016-10-26] MEDS: HEPARIN SODIUM - SQ 10,000 UNITS/ML VIAL SQ SCH ×2 (06:00→14:53)
[2016-10-26 07:00] VITALS: BP 149/87; PULSE 75; RESP 18; TEMP 98.6; O2SAT 93
[2016-10-26 07:20] VITALS: O2SAT 96
[2016-10-26] MEDS: CHLORHEXIDINE 0.12% (ORAL KIT) 15 ML CUP MT SCH (08:00)
--- NOTE | 2016-10-26 08:26 | HHI.PR ---
Subjective Remarks off vent Objective Vital Signs Date Time Temp Pulse Resp B/P Pulse Ox O2 Delivery O2 Flow Rate FiO2 10/26/16 07:20 96 21 10/26/16 03:00 97.9 74 18 138/82 93 10/26/16 03:00 74 10/25/16 23:00 72 10/25/16 23:00 98.2 72 18 130/70 95 10/25/16 21:50 18 10/25/16 19:00 88 10/25/16 19:00 97.9 88 18 128/85 96 10/25/16 15:47 98.9 76 18 142/85 95 10/25/16 15:26 87 10/25/16 12:19 98.1 74 18 135/83 94 10/25/16 12:07 87 10/25/16 10:01 96 21 I/O 10/25/16 10/25/16 10/25/16 10/26/16 10/26/16 10/26/16 07:00 15:00 23:00 07:00 15:00 23:00 Intake Total 580 ml 1780 ml 720 ml Output Total 0 ml Balance 580 ml 1780 ml 720 ml Intake Oral 480 ml 1680 ml 720 ml IV Total 100 ml 100 ml Stool Total 0 ml # Voids 3 4 4 # Bowel Movements 2 1 Result Diagram: 10/25/1662410/25/16624 Objective Remarks a and ox3 vff face sym 5/5 t/o nl neuro exam denies hx sz Assessment and Plan Assessment and Plan eeg shows sharps not quite pleds fu eeg similar will cover with acyclovir and LP neg so far x protein up could be due to some dm? steroid dose recheck abg ok i still have hope she will awaken i think the best thing is to keep her off all sedatives and rx inc bp with bp meds check additional labs watch renal fxt on acyclovir cont keppra at this point may be met encephalopathy ? precedex better as sits up in bed off sedatives csf protein was up however and not dm 10/23/16 hsv neg much better and following commands now!!! she should do well neurowise met enceph will fu 10/26/16 back to [facility] never had sz in past and we really dont know what happened prior to admit or that caused admit neurowise i think eeg finding were metabolic unlikley sz i would not recommend narcotics with hx liver failure will dc brittni and recheck eeg Al Su MD Oct 26, 2016 08:26
[2016-10-26] MEDS: DOCUSATE SODIUM 50 MG/SENNA 8.6 MG TAB PO SCH (09:00)
[2016-10-26] MEDS ORDERED: ASPIRIN 81 MG CHEW TAB CHEW SCH (09:00)
[2016-10-26] MEDS: POLYETHYLENE GLYCOL 17 GM PKG PO SCH (09:00)
[2016-10-26] MEDS: SODIUM CHLORIDE 0.9% FLUSH 5 ML FLUSH IV FLUSH SCH (09:00)
[2016-10-26] MEDS: TIOTROPIUM BROMIDE 18 MCG INH INH SCH (09:36)
[2016-10-26] MEDS: LANSOPRAZOLE SOLUTAB 30 MG TAB NG SCH (09:36)
[2016-10-26] MEDS: CARVEDILOL 12.5 MG TAB PO SCH (09:38)
[2016-10-26] MEDS: LISINOPRIL 20 MG TAB PO/NG SCH (09:38)
[2016-10-26] MEDS: ALBUTEROL SULFATE 90 MCG/ACT HFA 18 GM INHALER INH SCH (09:39)
[2016-10-26] MEDS ORDERED: MULTIVITAMIN TAB PO SCH (10:00)
[2016-10-26 11:00] VITALS: BP 101/68; PULSE 76; RESP 18; TEMP 98; O2SAT 90
--- NOTE | 2016-10-26 11:55 | HHI.PR ---
Subjective Remarks patient feels great no hadache, nausea or vomiting no neuro dificits Objective Vitals Vital Signs Date Time Temp Pulse Resp B/P Pulse Ox O2 Delivery O2 Flow Rate FiO2 10/26/16 07:20 96 21 10/26/16 07:00 98.6 75 18 149/87 93 10/26/16 07:00 75 10/26/16 03:00 97.9 74 18 138/82 93 10/26/16 03:00 74 10/25/16 23:00 72 10/25/16 23:00 98.2 72 18 130/70 95 10/25/16 21:50 18 10/25/16 19:00 88 10/25/16 19:00 97.9 88 18 128/85 96 10/25/16 15:47 98.9 76 18 142/85 95 10/25/16 15:26 87 10/25/16 12:19 98.1 74 18 135/83 94 10/25/16 12:07 87 I/O 10/25/16 10/25/16 10/25/16 10/26/16 10/26/16 10/26/16 07:00 15:00 23:00 07:00 15:00 23:00 Intake Total 580 ml 1780 ml 720 ml Output Total 0 ml Balance 580 ml 1780 ml 720 ml Intake Oral 480 ml 1680 ml 720 ml IV Total 100 ml 100 ml Stool Total 0 ml # Voids 3 4 4 # Bowel Movements 2 1 Result Diagram: 10/25/16 0625 10/25/16 0625 Imaging Last Impressions Chest X-Ray 10/19/16 0600 Signed Impressions: Service Date/Time: Wednesday, October 19, 2016 05:22 - CONCLUSION: 1. Lines and tubes. 2. No infiltrate left lower lobe. 3. Tiny effusions. Sandoval Purvis Jr., MD Brain MRI 10/19/16 0000 Signed Impressions: Service Date/Time: Wednesday, October 19, 2016 16:31 - CONCLUSION: Noncontrast MRI appearance of the brain within normal limits for a patient this age. No acute intracranial abnormality is demonstrated. Sinus disease noted. Lucas Montes MD Aorta CTA 10/18/16 0945 Signed Impressions: Service Date/Time: Tuesday, October 18, 2016 10:08 - CONCLUSION: 1. No evidence for aortic dissection. 2. Tree in bud infiltrate left lower lobe. Evangelist Hurley MD Head CT 10/18/16 0940 Signed Impressions: Service Date/Time: Tuesday, October 18, 2016 10:00 - CONCLUSION: Normal examination. Evangelist Hurley MD Objective Remarks awake and alert, oriented x 3 anicteric lungs no rales or wheezes regular rhythm abdomens soft, nontender extremities no edema neuro exam- unremarkable gait steady A/P Assessment and Plan Assessment: This is a 61-year-old female with a reported history in the medical record of alcoholic cirrhosis, hypothyroidism, chronic morphine use who was found down for an unknown period of time. Her course has been complicated by acute coronary syndrome and myocardial infarction and now persistent encephalopathy. She is no longer encephalopathic. It is very unclear to me what the etiology of the encephalopathy was, but it is clearly improved. I think she is stable for transfer to the floor. Possible seizures-- EEG 10/19: epileptiform discharges with spikes, no overt ictal activity. MRI brain 10/19- no acute findings- Keppra to po 500 mg po bid- Dc today 10/[address] Max. Repeat EEG -Dr. Max ff. Head CT negative Chronic opiate use - continue on roxicodone she ff up with Dr. Barahona as OP for pain management Acute coronary syndrome- Hypertension continue on LOpressor, Norvasc, Lasix --ASAdaily --s/p heparin infusion, now on SQH alone. --continue carvedilol 25mg po q12h. --continue lisinopril 20mg po q12h. Goal heart rate less than 90 Cardiology following: Dr. Cruz Acute encephalopathyunknown type- resolved Agitated Delirium- resolved Alcoholic Cirrhosis- counselled. Acute hypoxic and hypercarbic respiratory failure- Underlying COPD- still smokes very motivated to stop smoking continue Albuterol MDI, spiriva MDI Klebsiella Community Acquired Pneumonia- completed course of antibitoics 10/25 Dc planning -today with [facility] if cleared with Dr. Max he ordered for an EEG today Vikram Chong MD Oct 26, 2016 11:55
--- NOTE | 2016-10-26 12:02 | HHI.PR ---
Subjective Remarks no complains no chest pains. shortness of breath patient up and ambulated around her room Objective Vitals Vital Signs Date Time Temp Pulse Resp B/P Pulse Ox O2 Delivery O2 Flow Rate FiO2 10/26/16 07:20 96 21 10/26/16 07:00 98.6 75 18 149/87 93 10/26/16 07:00 75 10/26/16 03:00 97.9 74 18 138/82 93 10/26/16 03:00 74 10/25/16 23:00 72 10/25/16 23:00 98.2 72 18 130/70 95 10/25/16 21:50 18 10/25/16 19:00 88 10/25/16 19:00 97.9 88 18 128/85 96 10/25/16 15:47 98.9 76 18 142/85 95 10/25/16 15:26 87 10/25/16 12:19 98.1 74 18 135/83 94 10/25/16 12:07 87 I/O 10/25/16 10/25/16 10/25/16 10/26/16 10/26/16 10/26/16 07:00 15:00 23:00 07:00 15:00 23:00 Intake Total 580 ml 1780 ml 720 ml Output Total 0 ml Balance 580 ml 1780 ml 720 ml Intake Oral 480 ml 1680 ml 720 ml IV Total 100 ml 100 ml Stool Total 0 ml # Voids 3 4 4 # Bowel Movements 2 1 Result Diagram: 10/25/16 0625 10/25/16 0625 Imaging Last Impressions Chest X-Ray 10/19/16 0600 Signed Impressions: Service Date/Time: Wednesday, October 19, 2016 05:22 - CONCLUSION: 1. Lines and tubes. 2. No infiltrate left lower lobe. 3. Tiny effusions. Sandoval Purvis Jr., MD Brain MRI 10/19/16 0000 Signed Impressions: Service Date/Time: Wednesday, October 19, 2016 16:31 - CONCLUSION: Noncontrast MRI appearance of the brain within normal limits for a patient this age. No acute intracranial abnormality is demonstrated. Sinus disease noted. Lucas Montes MD Aorta CTA 10/18/16 0945 Signed Impressions: Service Date/Time: Tuesday, October 18, 2016 10:08 - CONCLUSION: 1. No evidence for aortic dissection. 2. Tree in bud infiltrate left lower lobe. Evangelist Hurley MD Head CT 10/18/16 0940 Signed Impressions: Service Date/Time: Tuesday, October 18, 2016 10:00 - CONCLUSION: Normal examination. Evangelist Hurley MD Objective Remarks awake and alert, oriented x 3 anicteric lungs no rales or wheezes regular rhythm abdomens soft, nontender extremities no edema neuro exam- unremarkable gait steady A/P Assessment and Plan Assessment: This is a 61-year-old female with a reported history in the medical record of alcoholic cirrhosis, hypothyroidism, chronic morphine use who was found down for an unknown period of time. Her course has been complicated by acute coronary syndrome and myocardial infarction and now persistent encephalopathy. She is no longer encephalopathic. It is very unclear to me what the etiology of the encephalopathy was, but it is clearly improved. I think she is stable for transfer to the floor. Possible seizures-- EEG 10/19: epileptiform discharges with spikes, no overt ictal activity. MRI brain 10/19- no acute findings- Keppra to po 500 mg po bid- Dc today 10/[address] Goodman. Repeat EEG -Dr. Goodamn ff. Head CT negative Chronic opiate use - continue on roxicodone prn- counselled her extensively with her liver condition she ff up with Dr. Barahona as OP for pain management Acute coronary syndrome- Hypertension continue on LOpressor, Norvasc, Lasix --ASAdaily --s/p heparin infusion, now on SQH alone. --continue carvedilol 25mg po q12h. --continue lisinopril 20mg po q12h. Goal heart rate less than 90 Cardiology following: Dr. Cruz as OP Acute encephalopathyunknown type- resolved Agitated Delirium- resolved Alcoholic Cirrhosis- counselled. Acute hypoxic and hypercarbic respiratory failure- Underlying COPD- still smokes very motivated to stop smoking continue Albuterol MDI, spiriva MDI Klebsiella Community Acquired Pneumonia- completed course of antibitoics 10/25 Dc planning -today with [facility] if cleared with Dr. Goodman he ordered for an EEG today DC today with Home health care visits PCP ff up- Dr. Christina Christina in 3-5 days FF up with Cardio- Dr. Cruz in 1 week FF up [facility] Neurology Dr. Goodman in 2 weeks Vikram Chong MD Oct 26, 2016 12:02
[2016-10-26] MEDS ORDERED: CARV12.5 PO (12:08)
[2016-10-26] MEDS ORDERED: VENTAER INH (12:08)
[2016-10-26] MEDS ORDERED: SPIRCAP INH (12:08)
[2016-10-26] MEDS ORDERED: Aspirin Chew CHEW (12:08)
--- NOTE | 2016-10-26 12:12 | HHI.DS ---
Discharge Summary Admission Date Oct 18, 2016 at 11:01 Discharge Date: Oct 26, 2016 Admitting Diagnosis AMS, acute resp failure, STEMI (1) Altered mental status ICD Code: R41.82 Diagnosis: Principal (2) Seizure ICD Code: R56.9 Diagnosis: Principal (3) Left lower lobe pneumonia ICD Code: J18.1 Diagnosis: Principal (4) Cirrhosis of liver ICD Code: K74.60 Diagnosis: Secondary Procedures none Brief History - From Admission This is a 61-year-old female with an unknown past medical history who was found down and unresponsive by a friend this morning. We do not know when she was last seen normal. We do not know anything about her past medical history. Per EMS, her vital signs were stable. Initially she was a GCS of 3 on scene. Narcan did not improve her mental status. There are significant dried emesis around her mouth. She was brought in by EMS and was intubated. In the emergency department, it was noted that the patient had significant ST elevations in lead V2 through V4. Cardiology was stat consulted. A stat echo was performed. Her labs are remarkable for a troponin of almost 5, but a normal MB ratio. A white count of 19,000. The patient is intubated and obtunded, and unable to provide any history. Critical care medicines were consulted to evaluate and manage her altered mental status, her possible acute coronary syndrome. CBC/BMP: 10/25/16 0625 10/25/16 0625 Significant Findings Laboratory Tests Test 10/24/16 10/25/16 04:12 06:25 Red Blood Count 3.65 MIL/MM3 3.91 MIL/MM3 (4.00-5.30) (4.00-5.30) Potassium Level 3.2 MEQ/L (3.5-5.1) Calcium Level 7.9 MG/DL 7.9 MG/DL (8.5-10.1) (8.5-10.1) Random Glucose 111 MG/DL (74-106) Imaging Last Impressions Chest X-Ray 10/19/16 0600 Signed Impressions: Service Date/Time: Wednesday, October 19, 2016 05:22 - CONCLUSION: 1. Lines and tubes. 2. No infiltrate left lower lobe. 3. Tiny effusions. Sandoval Purvis Jr., MD Brain MRI 10/19/16 0000 Signed Impressions: Service Date/Time: Wednesday, October 19, 2016 16:31 - CONCLUSION: Noncontrast MRI appearance of the brain within normal limits for a patient this age. No acute intracranial abnormality is demonstrated. Sinus disease noted. Lucas Montes MD Aorta CTA 10/18/16 0945 Signed Impressions: Service Date/Time: Tuesday, October 18, 2016 10:08 - CONCLUSION: 1. No evidence for aortic dissection. 2. Tree in bud infiltrate left lower lobe. Evangelist Hurley MD Head CT 10/18/16 0940 Signed Impressions: Service Date/Time: Tuesday, October 18, 2016 10:00 - CONCLUSION: Normal examination. Evangelist Hurley MD PE at Discharge awake and alert, oriented x 3 anicteric lungs no rales or wheezes regular rhythm abdomens soft, nontender extremities no edema neuro exam- unremarkable gait steady Pt update on day of discharge awake and alert. no pain complaints good vital signs interactive Hospital Course This is a 61-year-old female with a reported history in the medical record of alcoholic cirrhosis, hypothyroidism, chronic morphine use who was found down for an unknown period of time. Her course has been complicated by acute coronary syndrome and myocardial infarction and now persistent encephalopathy. She is no longer encephalopathic. It is very unclear to me what the etiology of the encephalopathy was, but it is clearly improved. I think she is stable for transfer to the floor. Possible seizures-- EEG 1/2: epileptiform discharges with spikes, no overt ictal activity. MRI brain 12- no acute findings- Keppra to po 500 mg po bid- Dc today 10/[address] Su. Repeat EEG -Dr. Su ff. Head CT negative Chronic opiate use - continue on roxicodone prn- counselled her extensively with her liver condition she ff up with Dr. Barahona as OP for pain management Acute coronary syndrome- Hypertension continue on LOpressor, Norvasc, Lasix --ASAdaily --s/p heparin infusion, now on SQH alone. --continue carvedilol 25mg po q12h. --continue lisinopril 20mg po q12h. Goal heart rate less than 90 Cardiology following: Dr. Cruz as OP Acute encephalopathyunknown type- resolved Agitated Delirium- resolved Alcoholic Cirrhosis- counselled. Acute hypoxic and hypercarbic respiratory failure- Underlying COPD- still smokes very motivated to stop smoking continue Albuterol I, spiriva MDI Klebsiella Community Acquired Pneumonia- completed course of antibitoics 10/25 Dc planning -today with [facility] if cleared with Dr. Su he ordered for an EEG today DC today with Home health care visits PCP ff up- Dr. Christina Christina in 3-5 days FF up with Cardio- Dr. Cruz in 1 week FF up wt Neurology Dr. Su in 2 weeks Vikram Chong MD Oct 26, 2016 12:02 Pt Condition on Discharge: Stable Discharge Disposition: Disch w/ Home Health Serv Discharge Time: <= 30 minutes Discharge Instructions DIET: Follow Instructions for: Heart Healthy Diet Speech Therapy-Diet Recommends: Regular Activities you can perform: Weight Bearing as [place] Activities to Avoid: Strenuous Activity, Driving Follow up Referrals: Cardiology - 1 Week with Sandoval Loya MD Neurology - 1 Week with Al Su MD PCP Follow-up - 10/29/16 with [facility] New Medications: Albuterol 18 GM Inh (Ventolin Hfa 18 GM Inh) 90 Mcg/Act Aer 1 PUFF INH Q6HR COPD #1 Ref 1 INHALER Carvedilol (Coreg) 12.5 Mg Tab 25 MG PO Q12HR CARD #60 TAB Tiotropium Inh (Spiriva Handihaler) 18 Mcg Cap 18 MCG INH DAILY COPD #1 Ref 1 CAP ([Aspirin Chew]) 81 MG CHEW 81 MG CHEW DAILY ACS #30 TAB.CHEW Continued Medications: Levothyroxine (Levothyroxine) 125 Mcg Tab 125 MCG PO DAILY Thyroid #30 Ref 0 TAB Multiple Vitamins W/ Minerals (Multivitamin Adults) 1 Tab 1 TAB PO DAILY Nutritional Supplement Ref 0 TAB Omeprazole (Omeprazole) 20 Mg Cap 20 MG PO DAILY Discontinued Medications: Albuterol 8.5 GM Inh (Proair Hfa 8.5 GM Inh) 90 Mcg/Act Aer 2 PUFF INH BID 108 mcg/actuation PRN SHORTNESS OF BREATH #1 Ref 0 INHALER Amoxicillin (Amoxicillin) 500 Mg Cap 500 MG PO Q6HR Infection Days 7 Ref 0 CAP Gabapentin (Gabapentin) 100 Mg Cap 100 MG PO TID #90 Ref 0 CAP Lactulose Liq (Lactulose Liq) 10 Gm/15 Ml Soln 30 ML PO TID PRN SEE LABEL COMMENTS Ref 0 ML Morphine ER (Morphine ER) 30 Mg Tab 30 MG PO TID Pain Management Ref 0 TAB Nabumetone (Nabumetone) 500 Mg Tab 500 MG PO BID Pain-Inflammation #60 Ref 0 TAB Prochlorperazine Maleate (Prochlorperazine Maleate) 10 Mg Tab 10 MG PO TID PRN NAUSEA OR VOMITING Ref 0 TAB Sulfamethoxazole-Trimethoprim (Sulfamethoxazole-Trimethoprim) 800-160 Mg Tab 1 TAB PO BID Infection Ref 0 TAB Verapamil (Verapamil) 40 Mg Tab 40 MG PO TID #60 Ref 0 TAB Vikram Chong MD Oct 26, 2016 12:12
--- NOTE | 2016-10-26 15:48 | HHI.HCPN ---
Reason for visit a. To assist with evaluation and management of symptoms including: pain, dyspnea, encephalopathy. b. To assist medical decision maker(s) with: better understanding of current medical conditions; weighing benefits/burdens of medical treatment options; making medical treatment decisions. . Subjective/Interval History Patient seen and examined in ICU. Tyra Purvis LCSW also present. Patient was medically extubated 10/23/16. She denies chest pain and shortness of breath. She reports good appetite. She is anxious to go home. Encephalopathy has resolved. She is up ambulating in room. Afebrile. Vital signs stable. Bowel and bladder function adequate. No new labs today. Repeat EEG pending. DC pending neurology approval. Plan for follow up with cardiology, PCP and neurology as an outpt. Lengthy discussion with patient to review course of hospitalization. She indicates she wants FULL CODE for now, but would not want to be kept alive by tubes and machines. She understands the reasons why her family elected NO CODE and agrees with their decision at the time. Patient completed designation of health care surrogate today, left living will for patient to consider completion. Copies of HCS paperwork given to pt and sent to HIM to be scanned into EMR. . Advance Directives Living Will: Never completed Health Care Surrogate: Never completed Durable Power of Banking Teacher: Never completed Objective Vital Signs Date Time Temp Pulse Resp B/P Pulse Ox O2 Delivery O2 Flow Rate FiO2 10/26/16 11:00 76 10/26/16 11:00 98.0 76 18 101/68 90 10/26/16 07:20 96 21 10/26/16 07:00 98.6 75 18 149/87 93 10/26/16 07:00 75 10/26/16 03:00 97.9 74 18 138/82 93 10/26/16 03:00 74 10/25/16 23:00 72 10/25/16 23:00 98.2 72 18 130/70 95 10/25/16 21:50 18 10/25/16 19:00 88 10/25/16 19:00 97.9 88 18 128/85 96 10/25/16 15:47 98.9 76 18 142/85 95 Intake & Output 10/26/16 10/26/16 07:00 19:00 Intake Total 720 ml Balance 720 ml Intake Oral 720 ml # Voids 4 # Bowel Movements 1 Physical Exam CONSTITUTIONAL/GENERAL: This is an adequately nourished patient, in no apparent distress. TUBES/LINES/DRAINS:ETT, OG, left IJ CL, left femoral line. PIVs, Garces, bilateral soft wrist restraints, SCDs SKIN: No jaundice, rashes, or lesions. Ecchymoses on upper extremities. No wounds seen anteriorly. Skin temperature appropriate. Not diaphoretic. EYES: Pupils equal and round and reactive. ENT: Unable to adequately assess hearing. Nose without bleeding or purulent drainage. Throat difficult to visualize due to tubes. CARDIOVASCULAR: tachycardic. No JVD. Peripheral pulses symmetric. RESPIRATORY/CHEST: Symmetric, unlabored respirations on vent. Clear to auscultation. GASTROINTESTINAL: Abdomen soft, non-tender, mildly distended. No guarding. Bowel sounds present. GENITOURINARY: Without palpable bladder distension. Garces catheter in place. MUSCULOSKELETAL: Extremities without clubbing, cyanosis, or edema. No mottling or clubbing. NEUROLOGICAL: On Diprivan. Moves bilateral LE spontaneously. Withdraws to noxious stimuli all extremities. Does not open eyes or follow commands. . Diagnostic Tests Laboratory Laboratory Tests Test 10/24/16 10/25/16 04:12 06:25 White Blood Count 9.7 TH/MM3 8.5 TH/MM3 (4.0-11.0) (4.0-11.0) Red Blood Count 3.65 MIL/MM3 3.91 MIL/MM3 (4.00-5.30) (4.00-5.30) Hemoglobin 11.8 GM/DL 12.6 GM/DL (11.6-15.3) (11.6-15.3) Hematocrit 35.2 % 38.3 % (35.0-46.0) (35.0-46.0) Mean Corpuscular Volume 96.5 FL 97.8 FL (80.0-100.0) (80.0-100.0) Mean Corpuscular Hemoglobin 32.5 PG 32.2 PG (27.0-34.0) (27.0-34.0) Mean Corpuscular Hemoglobin 33.7 % 32.9 % Concent (32.0-36.0) (32.0-36.0) Red Cell Distribution Width 13.4 % 13.4 % (11.6-17.2) (11.6-17.2) Platelet Count 209 TH/MM3 220 TH/MM3 (150-450) (150-450) Mean Platelet Volume 8.3 FL 10.0 FL (7.0-11.0) (7.0-11.0) Sodium Level 142 MEQ/L 139 MEQ/L (136-145) (136-145) Potassium Level 3.2 MEQ/L 4.1 MEQ/L (3.5-5.1) (3.5-5.1) Chloride Level 105 MEQ/L 104 MEQ/L (98-107) (98-107) Carbon Dioxide Level 27.9 MEQ/L 25.1 MEQ/L (21.0-32.0) (21.0-32.0) Anion Gap 9 MEQ/L (5-15) 10 MEQ/L (5-15) Blood Urea Nitrogen 14 MG/DL (7-18) 9 MG/DL (7-18) Creatinine 0.57 MG/DL 0.66 MG/DL (0.50-1.00) (0.50-1.00) Estimat Glomerular Filtration 108 ML/MIN 91 ML/MIN (>89) Rate (>89) Random Glucose 96 MG/DL 111 MG/DL (74-106) (74-106) Calcium Level 7.9 MG/DL 7.9 MG/DL (8.5-10.1) (8.5-10.1) Result Diagram: 10/25/16 0625 10/25/16 0625 Procedures 10/18/16: Intubation 10/18/16: NG tube placement 10/19/16: Left IJ central venous access 10/19/16: Left femoral arterial catheter placement . Assessment and Plan Disease Oriented Problem List: (1) Leukocytosis (2) ST elevation NM (STEMI) (3) Sepsis (4) Altered mental status (5) Elevated troponin (6) Left lower lobe pneumonia Symptom Scale: (1) Pain 0-10 Scale: 0 (2) Dyspnea 0-10 Scale: 0 Pertinent Non-Medical Issues Psychosocial:Patient was born in [place]. She lived in [place] and [place]. She was but is now . She has 3 adult children. 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 Spiritual: Mormon galen. Legal: Per [place] statutes, in the absence of written advanced directives healthcare proxy decision making would fall to the majority of the patient's 3 adult children. Ethical issues impacting care: No known ethical issues impacting care at this time. . Important Contacts * Yola Molina(daughter): #[phone]-- wishes to be involved in medical decision making, serving as HCP for patient. * Matthew Molina (son): #[phone] - defers decision making at this time. Will be available to support Yola for decisions. * Carolyn Molina (daughter): #[phone] -- defers decision making at this time. Will be available to support Yola for decisions. * Sole Rhodes, friend: [phone] family is okay with her getting medical updates. . Prognosis Patient with history of liver disease admitted with STEMI not a candidate for revascularization, now with encephalopathy, LP pending difficult to prognosticate at this time. Will obtain additional information and continue to evaluate for better prognostication. . Code Status: Full Code Plan * Patient completed designation of healthcare surrogate during today's visit. Patient names her daughter Quyen Molina as primary HCS and friend Sole Rhodes. * FULL CODE * 10/26/16: DC pending neurology approval. Plan for follow up with cardiology, PCP and neurology as an outpt. Lengthy discussion with patient to review course of hospitalization. She indicates she wants FULL CODE for now, but would not want to be kept alive by tubes and machines. She understands the reasons why her family elected NO CODE and agrees with their decision at the time. Patient completed designation of health care surrogate today, left living will for patient to consider completion. Copies of [facility] paperwork given to pt and sent to HIM to be scanned into EMR. * SYMPTOMS; Pain: denies pain. Dyspnea: denies dyspnea. Encephalopathy: resolved. * Palliative care will continue to follow to assist with symptom management and further clarification of treatment goals as needed. . Attestation To help prompt me to consider important information that might be impacting today's encounter and assessment, information from prior notes written by myself or my colleagues may have been "brought forward" into today's note. My signature on this note, however, is an attestation that I personally performed the exam, history, and/or decision-making noted today, and, unless otherwise indicated, the interactions with patient, family, and staff as well as the review of records all occurred today. I also attest that the listed assessment and stated plan reflect my best clinical judgment today based on the combination of historical information, prior notes, and today's exam/ interactions. When time spent is documented, it refers only to time spent today by the signer, or if indicated, combined time spent today by collaborating physician/nurse practitioner. . STEPHANIE BENTON Oct 26, 2016 15:48
--- NOTE | 2016-10-26 20:41 | MG ---
cc: ALEX HENLEY M.D. Lab No: Date: Age: Sex: F Race: DATE OF 1955, 61 years old. EEG NUMBER [id number] Su. ROOM 447 INDICATION Awake with photic stimulation. EEG 10/21/2016 shows abnormal consistent with significant encephalopathy. Some sharps bilaterally. Vertex sharps as well. CT is normal. Admitted with change in mental status, unresponsive. A followup EEG. Keppra stopped on 10/25. History unobtainable. MEDICATIONS 1. Roxicodone. 2. Prevacid. 3. Coreg. 4. Lisinopril. 5. Heparin. DESCRIPTION OF RECORD There is quite a bit of artifact in background. A lot of blinking artifact. There is at times, it seems that the patient does have some normal alpha activity. There is a lot of artifact, predominantly in the frontal temporal regions more right than left. EKG looks sinus. Photic stimulation causing more eye movement and artifact. Washcloth placed over her eyes. There is overall some theta frequency seen as well. I do not appreciate any epileptic activity, any epileptiform features in this recording. IMPRESSION Abnormal EEG due to some theta slowing consistent with some encephalopathy. at times there is some alpha noted as well. Quite a bit of artifact in the recording. The patient is noted to be moving. I do not see bilateral sharp waves, I think it is more artifactual in this recording. Clinical correlation. MD ALLISON Whyte/ERASMO /5:00 PM /8:35 PM
== END 2016-10-26 15:50 | disposition home health service (06) | DRG 853 ==
LOC: NEPC 09:25 → NEDA 11:01 → HCVR 11:40
PROVIDERS: ADMIT Internal Medicine; ATTEND Internal Medicine
PROC: 5A1955Z Respiratory Ventilation, Greater than 96 Consecutive Hours (ICD-10-PCS; principal; 2016-10-18)
PROC: 0DH Gastrointestinal System, Insertion (ICD-10-PCS; 2016-10-18)
PROC: 04HY32Z Insertion of Monitoring Device into Lower Artery, Percutaneous Approach (ICD-10-PCS; 2016-10-18)
PROC: 0BH17EZ Insertion of Endotracheal Airway into Trachea, Via Natural or Artificial Opening (ICD-10-PCS; 2016-10-18)
PROC: 05HN33Z Insertion of Infusion Device into Left Internal Jugular Vein, Percutaneous Approach (ICD-10-PCS; 2016-10-18)
PROC: 0T9B70Z Drainage of Bladder with Drainage Device, Via Natural or Artificial Opening (ICD-10-PCS; 2016-10-18)
PROC: 009U3ZX Drainage of Spinal Canal, Percutaneous Approach, Diagnostic (ICD-10-PCS; 2016-10-20)
DX: A41.9 Sepsis, unspecified organism (principal); I21.4 Non-ST elevation (NSTEMI) myocardial infarction; J96.01 Acute respiratory failure with hypoxia; J18.1 Lobar pneumonia, unspecified organism; J96.02 Acute respiratory failure with hypercapnia; J44.9 Chronic obstructive pulmonary disease, unspecified; J15.0 Pneumonia due to Klebsiella pneumoniae; G93.40 Encephalopathy, unspecified; N17.9 Acute kidney failure, unspecified; I42.9 Cardiomyopathy, unspecified; F11.20 Opioid dependence, uncomplicated; G89.29 Other chronic pain; M54.9 Dorsalgia, unspecified; E03.9 Hypothyroidism, unspecified; Z51.5 Encounter for palliative care; K70.30 Alcoholic cirrhosis of liver without ascites; B19.20 Unspecified viral hepatitis C without hepatic coma; J45.909 Unspecified asthma, uncomplicated; Z80.3 Family history of malignant neoplasm of breast; Z82.49 Family history of ischemic heart disease and other diseases of the circulatory system; F17.210 Nicotine dependence, cigarettes, uncomplicated; Z66 Do not resuscitate; I10 Essential (primary) hypertension; Z22.322 Carrier or suspected carrier of Methicillin resistant Staphylococcus aureus; Z78.1 Physical restraint status
CPT/HCPCS: 31500; 36556; 36600; 51702; 70450; 70551; 71010; 71275; 74174; 76937; 80048; 80053; 80061; 80076; 80202; 80307; 80320; 80329; 80346; 80352; 80354; 80356; 80358; 80359; 80371; 81001; 82140; 82435; 82550; 82552; 82565; 82607; 82805; 82945; 82947; 82948; 83036; 83605; 83690; 83789; 83880; 83921; 83992; 84132; 84157; 84207; 84295; 84425; 84439; 84443; 84450; 84460; 84484; 84520; 85025; 85027; 85610; 85652; 85730; 86038; 86403; 86592; 87040; 87070; 87077; 87086; 87102; 87186; 87205; 87206; 87529; 87640; 87641; 89051; 93005; 93306; 94002; 94003; 94150; 94640; 94664; 94667; 94668; 95819; 96374; C9113; C9399; G0480; G0481; J0133; J0290; J0696; J1644; J1940; J1953; J2060; J2310; J2930; J3010; J3370; J3480; J7030; J7040; J7050; J7120; Q9967

== ENCOUNTER 2016-11-08 10:00 | Observation (INO) | payer MEDICARE, OTHER ==
[~2016-11-08] VITALS: Ht 154.9 cm; Wt 51.4 kg
[2016-11-08] VITALS (9 sets, daily range): BP systolic 101–165; BP diastolic 58–98; PULSE 64–72; RESP 16–20; TEMP 97.9–98.1; O2SAT 94–98
[~2016-11-08 10:00] MED LIST: Aspirin Chew CHEW; CARV12.5 PO; LEVO125T4 PO; MULT1TAB84 PO; OMEP20CA2 PO; SPIRCAP INH; VENTAER INH
--- NOTE | 2016-11-08 11:38 | PD ---
HPI Chief Complaint: Respiratory Symptoms Time Seen by Provider: 11:38 Travel History International Travel<30 days: No Contact w/Intl Traveler<30days: No Traveled to known affect area: No History of Present Illness HPI 61-year-old female with history of admission on October 18 for sepsis with encephalopathy secondary to pneumonia with question of DE, presents the emergency department with several day history of "feeling unwell". Patient describes generalized malaise, without fever, but she's had quite a lot of thick clear mucus production, and increased shortness of breath. Patient denies chest pain, nausea, vomiting, but has had some soft stools. Patient states she's been using all of her medications as prescribed. Patient states she is not smoking since being discharged. Patient denies significant alcohol use, although she question of cirrhosis in her previous admission note. Patient is mainly concerned regarding her chest congestion and mucus production which seems to be worse at night. Patient denies heartburn or increased reflux , despite her history. Patient states her appetite is excellent been very good since discharge from the hospital. She has a history of MRSA but has no known drug allergies. PFSH Past Medical History Hx Anticoagulant Therapy: Yes (ASA 81 MG ) Cardiovascular Problems: Yes (HX OF DE ) Respiratory: Yes (COPD) Social History Alcohol Use: No (UNKNOWN) Tobacco Use: No (UNKNOWN ) Substance Use: No (UNKNOWN) Allergies-Medications (Allergen,Severity, Reaction): Coded Allergies: *MDRO Multi-Drug Resistant Organism (Verified Adverse Reaction, Unknown, MRSA, 11/08/16) MRSA screen POSITIVE - 10/23/16; MRSA (sputum)-10/19/16 Reported Meds & Prescriptions Reported Meds & Active Scripts Active Ventolin Hfa 18 GM Inh (Albuterol Sulfate) 90 Mcg/Act Aer 1 Puff INH Q6HR Spiriva Handihaler (Tiotropium Inh) 18 Mcg Cap 18 Mcg INH DAILY Coreg (Carvedilol) 12.5 Mg Tab 25 Mg PO Q12HR Reported Lactulose Liq (Lactulose) 10 Gm/15 Ml Soln 30 Ml PO Q6H Verapamil (Verapamil HCl) 40 Mg Tab 40 Mg PO TID Aspirin 81 Mg Chew 81 Mg CHEW DAILY Multivitamin Adults (Multiple Vitamins W/ Minerals) 1 Tab 1 Tab PO DAILY Omeprazole 20 Mg Cap 20 Mg PO DAILY Levothyroxine (Levothyroxine Sodium) 125 Mcg Tab 125 Mcg PO DAILY Review of Systems Except as stated in HPI: all other systems reviewed are Neg General / Constitutional: No: Fever, Chills Eyes: No: Visual changes HENT: Positive: Sore Throat (mild today.), Congestion, No: Headaches, Rhinitis , Rhinorrhea, Nosebleed, Neck Stiffness, Neck Pain, Ear Discharge, Earache Cardiovascular: No: Chest Pain or Discomfort, Palpitations, Irregular Rhythm Respiratory: Positive: Cough, Shortness of Breath, Wheezing, No: Sneezing, Orthopnea, Hemoptysis, Stridor, Night Sweats, Pleuritic Pain, Other Gastrointestinal: Positive: Diarrhea (soft stools the past week.), No: Nausea , Vomiting, Abdominal Pain Genitourinary: No: Urgency, Frequency, Dysuria, Decreased Urinary Output Musculoskeletal: No: Pain Skin: No Rash Neurologic: No: Weakness Psychiatric: No: Depression Endocrine: No: Polydipsia Hematologic/Lymphatic: No: Easy Bruising Physical Exam Narrative GENERAL: Patient appears in no obvious distress. SKIN: Warm and dry. Mild pallor. Mild poor turgor. HEAD: Atraumatic. Normocephalic. EYES: Pupils equal and round. No scleral icterus. No injection or drainage. ENT: No nasal bleeding or discharge. Mucous membranes pink and moist. TMs are clear bilaterally. No sinus tenderness to palpation. Pharynx appears normal. No significant postnasal drip. No significant lymphadenopathy. NECK: Trachea midline. No JVD. Supple and nontender. CARDIOVASCULAR: Regular rate and rhythm. No murmurs gallops or rubs. RESPIRATORY: No accessory muscle use. Wheezing to auscultation in the right middle lower lobe. Breath sounds equal bilaterally. GASTROINTESTINAL: Abdomen soft, non-tender, nondistended. Hepatic and splenic margins not palpable. No CVA tenderness. MUSCULOSKELETAL: Extremities without clubbing, cyanosis, or edema. No obvious deformities. NEUROLOGICAL: Awake and alert. No obvious cranial nerve deficits. Motor grossly within normal limits. Five out of 5 muscle strength in the arms and legs. Normal speech. PSYCHIATRIC: Appropriate mood and affect; insight and judgment normal. Data Data Last Documented VS Vital Signs Date Time Temp Pulse Resp B/P Pulse Ox O2 Delivery O2 Flow Rate FiO2 11/08/16 14:00 70 16 121/71 95 Nasal Cannula 2 11/08/16 10:02 97.9 Orders Complete Blood Count With Diff (11/08/16 11:43) Comprehensive Metabolic Panel (11/08/16 11:43) B-Type Natriuretic Peptide (11/08/16 11:43) Act Partial Throm Time (Ptt) (11/08/16 11:43) Prothrombin Time / Inr (Pt) (11/08/16 11:43) Magnesium (Mg) (11/08/16 11:43) Ckmb (Isoenzyme) Profile (11/08/16 11:43) Troponin I (11/08/16 11:43) Urinalysis - C+S If Indicated (11/08/16 11:43) Influenzae A/B Antigen (11/08/16 11:43) Iv Access Insert/Monitor (11/08/16 11:43) Electrocardiogram (11/08/16 11:43) Ecg Monitoring (11/08/16 11:43) Oximetry (11/08/16 11:43) Oxygen Administration (11/08/16 11:43) Sodium Chloride 0.9% Flush (Ns Flush) (11/08/16 11:45) Methylprednisolone So Succ Inj (Solumedr (11/08/16 11:45) Albuterol-Ipratropium Neb (Duoneb Neb) (11/08/16 11:45) D-Dimer (11/08/16 11:43) Thyroid Stimulating Hormone (11/08/16 11:46) Aspirin Chew (Aspirin Chew) (11/08/16 12:30) Chest, Pa & Lat (11/08/16 ) Ceftriaxone Inj (Rocephin Inj) (11/08/16 13:30) Azithromycin Inj (Zithromax Inj) (11/08/16 13:30) Admit Order (Ed Use Only) (11/08/16 15:18) Labs Laboratory Tests Test 11/08/16 12:15 White Blood Count 14.7 TH/MM3 Red Blood Count 3.62 MIL/MM3 Hemoglobin 11.8 GM/DL Hematocrit 35.8 % Mean Corpuscular Volume 99.0 FL Mean Corpuscular Hemoglobin 32.6 PG Mean Corpuscular Hemoglobin 32.9 % Concent Red Cell Distribution Width 14.0 % Platelet Count 439 TH/MM3 Mean Platelet Volume 7.6 FL Neutrophils (%) (Auto) 79.8 % Lymphocytes (%) (Auto) 11.6 % Monocytes (%) (Auto) 6.5 % Eosinophils (%) (Auto) 1.3 % Basophils (%) (Auto) 0.8 % Neutrophils # (Auto) 11.7 TH/MM3 Lymphocytes # (Auto) 1.7 TH/MM3 Monocytes # (Auto) 1.0 TH/MM3 Eosinophils # (Auto) 0.2 TH/MM3 Basophils # (Auto) 0.1 TH/MM3 CBC Comment DIFF FINAL Differential Comment Prothrombin Time 10.5 SEC Prothromb Time International 1.0 RATIO Ratio Activated Partial 26.3 SEC Thromboplast Time D-Dimer Quantitative (PE/DVT) 0.32 MG/L FEU Sodium Level 137 MEQ/L Potassium Level 4.0 MEQ/L Chloride Level 102 MEQ/L Carbon Dioxide Level 26.6 MEQ/L Anion Gap 8 MEQ/L Blood Urea Nitrogen 4 MG/DL Creatinine 0.67 MG/DL Estimat Glomerular Filtration 89 ML/MIN Rate Random Glucose 100 MG/DL Calcium Level 9.0 MG/DL Magnesium Level 1.8 MG/DL Total Bilirubin 0.4 MG/DL Aspartate Amino Transf 49 U/L (AST/SGOT) Alanine Aminotransferase 43 U/L (ALT/SGPT) Alkaline Phosphatase 239 U/L Total Creatine Kinase 58 U/L Troponin I 0.04 NG/ML B-Type Natriuretic Peptide 449 PG/ML Total Protein 7.1 GM/DL Albumin 3.4 GM/DL Thyroid Stimulating Hormone 12.200 uIU/ML 3rd Gen [facility] Medical Decision Making Medical Screen Exam Complete: Yes Emergency Medical Condition: Yes Differential Diagnosis Patient is medically stable at time of exam Labs ordered including CBC, CMP, cardiac panel, proBNP, urinalysis, d-dimer, PT PTT and INR, TSH. Chest x-ray is ordered with PA and lateral. Patient is given methylprednisone 125 mg IV as well as urinary or every 15 minutes 3. EKG is ordered as well. Narrative Course Patient is medically stable at time of exam. EKG is performed showing ST deviation or ST depressions across all leads except aVR. Was reviewed with Dr. Saldana. Patient is given 324 mg aspirin by mouth. Chest PA and lateral is ordered. Chest x-ray is read as negative for acute process by radiology. Labs ordered including CBC, CMP, cardiac panel, proBNP, and TSH and d-dimer. Patient is given 125 mg of Solu-Medrol as well as DuoNeb every 15 minutes 3. CBC shows leukocytosis of 14.7 with a right shift. CMP is unremarkable except for alkaline phosphatase of 239 and BNP of 449. TSH is 12.2. Coags are negative. D-dimer is negative at 0.32. 1335 hrs. Patient is reviewed with Dr. Saldana, and the patient is examined with her. Patient states she is symptomatically much improved, but she continues to have diffuse wheezes with auscultation. Dr. Saldana and I'm concerned regarding the patient's change in her EKG since her admission 2 weeks ago. The patient's symptoms do not appear to be cardiac, however call was placed to Dr. Saenz, the on-call procurement clerk and the patient was discussed. Dr. Saenz feels the EKG changes are new, and warrant further evaluation on an inpatient basis. Call was placed to the hospitalist for admission for the patient COPD and new changes on EKG. Diagnosis Primary Impression: COPD (chronic obstructive pulmonary disease) with acute bronchitis Additional Impressions: ST segment changes on electrocardiogram Leukocytosis Qualified Code: D72.829 - Leukocytosis, unspecified type Condition: Stable Joseph Redmond Nov 08, 2016 11:38
[2016-11-08] MEDS: RESP: ALBUTEROL 2.5 MG/IPRATROPIUM 0.5 MG NEB (SCH) INH ×3 (11:45→12:15)
[2016-11-08] MEDS ORDERED: methylPREDNISolone SOD SUCC 125 MG/2 ML VIAL IVP ONE (11:45)
[2016-11-08] MEDS ORDERED: LACT10SO PO (11:56)
[2016-11-08] MEDS ORDERED: VERA40TA PO (11:56)
[2016-11-08] MEDS ORDERED: ASPI81CH CHEW (11:56)
[2016-11-08] MEDS: SODIUM CHLORIDE 0.9% FLUSH 5 ML FLUSH IVF PRN ×2 (12:14→21:36)
[2016-11-08] MEDS ORDERED: ASPIRIN 81 MG CHEW TAB CHEW ONE (12:30)
[2016-11-08 12:38] LABS: AUTOMATED NEUTROPHIL # 11.7 TH/MM3 (1.8-7.7); BASOPHIL # 0.1 TH/MM3 (0-0.2); BASOPHIL % 0.8 % (0.0-2.0); EOSINOPHIL # 0.2 TH/MM3 (0-0.4); EOSINOPHIL % 1.3 % (0.0-4.0); HEMATOCRIT 35.8 % (35.0-46.0); HEMO FLAGS DIFF FINAL; LYMPH % 11.6 % (9.0-44.0); LYMPHOCYTE # 1.7 TH/MM3 (1.0-4.8); MEAN CORPUSCULAR HEMOGLOBIN 32.6 PG (27.0-34.0); MEAN CORPUSCULAR HGB CONC 32.9 % (32.0-36.0); MONO % 6.5 % (0.0-8.0); NEUT % 79.8 % (16.0-70.0); PLATELET COUNT 439 TH/MM3 (150-450); RED BLOOD COUNT 3.62 MIL/MM3 (4.00-5.30); WHITE BLOOD COUNT 14.7 TH/MM3 (4.0-11.0)
[2016-11-08 12:55] LABS: APTT (PATIENT) 26.3 SEC (24.3-30.1); PROTHROMBIN TIME - PATIENT 10.5 SEC (9.8-11.6)
[2016-11-08 13:04] LABS: ALT (GPT) 43 U/L (10-53); ANION GAP 8 MEQ/L (5-15); AST (GOT) 49 U/L (15-37); BICARBONATE 26.6 MEQ/L (21.0-32.0); BLOOD UREA NITROGEN 4 MG/DL (7-18); CHLORIDE 102 MEQ/L (98-107); GLOMERULAR FILTRATION RATE 89 ML/MIN (>89); MAGNESIUM 1.8 MG/DL (1.5-2.5); SODIUM (NA) 137 MEQ/L (136-145)
[2016-11-08 13:08] LABS: ALKALINE PHOSPHATASE 239 U/L (45-117); CREATINE KINASE 58 U/L (26-192); TOTAL BILIRUBIN ADULT 0.4 MG/DL (0.2-1.0)
--- NOTE | 2016-11-08 13:28 | RADRPT ---
EXAM DATE/TIME: 11/08/2016 11:57 [facility] COMPARISON: CHEST SINGLE AP, October 19, 2016, 5:22. INDICATIONS : Short of Breath. MEDICAL HISTORY : Chronic obstructive pulmonary disease. Diabetes mellitus type 2. Cirrhosis. Hypothyroidism. SURGICAL HISTORY : Fusion, lumbar. Carpal tunnel. ENCOUNTER: Initial ACUITY: 2 days PAIN SCORE: 0/10 LOCATION: Bilateral chest FINDINGS: Frontal and lateral views of the chest demonstrate a normal-sized cardiac silhouette. There is stable interstitial prominence bilaterally. No effusion, consolidation, or pneumothorax is appreciated. CONCLUSION: No acute cardiopulmonary abnormality is identified. Lucsa Kumar MD on November 08, 2016 at 13:26 Board Certified Radiologist. This report was verified electronically.
[2016-11-08] MEDS ORDERED: cefTRIAXone INJ 1,000 MG in SODIUM CHLORIDE 0.9% INJ 100 ML IV ONE (13:30)
[2016-11-08] MEDS ORDERED: AZITHROMYCIN INJ 500 MG in SODIUM CHLOR 0.9% 250 ML INJ 250 ML IV ONE (13:30)
[2016-11-08] MEDS ORDERED: NITROGLYCERIN 0.4 MG SL 25 TABS/BTL SL PRN (16:30)
--- NOTE | 2016-11-08 16:32 | PD ---
Data Data Last Documented VS Vital Signs Date Time Temp Pulse Resp B/P Pulse Ox O2 Delivery O2 Flow Rate FiO2 11/08/16 14:00 70 16 121/71 95 Nasal Cannula 2 11/08/16 10:02 97.9 Orders Complete Blood Count With Diff (11/08/16 11:43) Comprehensive Metabolic Panel (11/08/16 11:43) B-Type Natriuretic Peptide (11/08/16 11:43) Act Partial Throm Time (Ptt) (11/08/16 11:43) Prothrombin Time / Inr (Pt) (11/08/16 11:43) Magnesium (Mg) (11/08/16 11:43) Ckmb (Isoenzyme) Profile (11/08/16 11:43) Troponin I (11/08/16 11:43) Urinalysis - C+S If Indicated (11/08/16 11:43) Influenzae A/B Antigen (11/08/16 11:43) Iv Access Insert/Monitor (11/08/16 11:43) Electrocardiogram (11/08/16 11:43) Ecg Monitoring (11/08/16 11:43) Oximetry (11/08/16 11:43) Oxygen Administration (11/08/16 11:43) Sodium Chloride 0.9% Flush (Ns Flush) (11/08/16 11:45) Methylprednisolone So Succ Inj (Solumedr (11/08/16 11:45) Albuterol-Ipratropium Neb (Duoneb Neb) (11/08/16 11:45) D-Dimer (11/08/16 11:43) Thyroid Stimulating Hormone (11/08/16 11:46) Aspirin Chew (Aspirin Chew) (11/08/16 12:30) Chest, Pa & Lat (11/08/16 ) Ceftriaxone Inj (Rocephin Inj) (11/08/16 13:30) Azithromycin Inj (Zithromax Inj) (11/08/16 13:30) Admit Order (Ed Use Only) (11/08/16 15:18) Labs Laboratory Tests Test 11/08/16 12:15 White Blood Count 14.7 TH/MM3 Red Blood Count 3.62 MIL/MM3 Hemoglobin 11.8 GM/DL Hematocrit 35.8 % Mean Corpuscular Volume 99.0 FL Mean Corpuscular Hemoglobin 32.6 PG Mean Corpuscular Hemoglobin 32.9 % Concent Red Cell Distribution Width 14.0 % Platelet Count 439 TH/MM3 Mean Platelet Volume 7.6 FL Neutrophils (%) (Auto) 79.8 % Lymphocytes (%) (Auto) 11.6 % Monocytes (%) (Auto) 6.5 % Eosinophils (%) (Auto) 1.3 % Basophils (%) (Auto) 0.8 % Neutrophils # (Auto) 11.7 TH/MM3 Lymphocytes # (Auto) 1.7 TH/MM3 Monocytes # (Auto) 1.0 TH/MM3 Eosinophils # (Auto) 0.2 TH/MM3 Basophils # (Auto) 0.1 TH/MM3 CBC Comment DIFF FINAL Differential Comment Prothrombin Time 10.5 SEC Prothromb Time International 1.0 RATIO Ratio Activated Partial 26.3 SEC Thromboplast Time D-Dimer Quantitative (PE/DVT) 0.32 MG/L FEU Sodium Level 137 MEQ/L Potassium Level 4.0 MEQ/L Chloride Level 102 MEQ/L Carbon Dioxide Level 26.6 MEQ/L Anion Gap 8 MEQ/L Blood Urea Nitrogen 4 MG/DL Creatinine 0.67 MG/DL Estimat Glomerular Filtration 89 ML/MIN Rate Random Glucose 100 MG/DL Calcium Level 9.0 MG/DL Magnesium Level 1.8 MG/DL Total Bilirubin 0.4 MG/DL Aspartate Amino Transf 49 U/L (AST/SGOT) Alanine Aminotransferase 43 U/L (ALT/SGPT) Alkaline Phosphatase 239 U/L Total Creatine Kinase 58 U/L Troponin I 0.04 NG/ML B-Type Natriuretic Peptide 449 PG/ML Total Protein 7.1 GM/DL Albumin 3.4 GM/DL Thyroid Stimulating Hormone 12.200 uIU/ML 3rd Gen MDM Supervised Visit with ROB: Yes Narrative Course The history, exam, and medical decision-making in the associated midlevel provider note were completed with my assistance. I reviewed and agree with the findings presented. I attest that I had a [id number] encounter with the patient on the same day, and personally performed and documented my assessment and findings in the medical record. *My assessment and Findings: This is a 61-year-old female who recently had a long hospital stay for encephalopathy complicated by COPD and a myocardial infarction. She presents to the emergency department today with several days of increasing shortness of breath, productive cough and wheezing. On exam she is diffusely wheezing. Her exam is consistent with a COPD exacerbation. Her labs are all reassuring with the exception of a mild leukocytosis with may indicate a viral syndrome or early pneumonia. Of concern is her EKG which demonstrates deep T-wave inversions in the lateral leads which are new compared to her prior EKGs. This may just be her new baseline EKG following her myocardial infarction when she was in the hospital, however the patient has not had a stress test or cardiac catheterization since her event. I spoke to Dr. Saenz who was concerned with the EKG and agreed to consult on the patient and observation. Patient should continue on steroids and nebulizers as I suspect her presentation is more related to COPD today. Diagnosis Primary Impression: COPD (chronic obstructive pulmonary disease) with acute bronchitis Additional Impressions: Leukocytosis Qualified Code: D72.829 - Leukocytosis, unspecified type ST segment changes on electrocardiogram Condition: Stable Nilda Saldana MD Nov 08, 2016 16:32
[2016-11-08 17:16] LABS: BLOOD, URINE NEG (NEG); COMMENT (UR) CULT NOT INDICATED; CULTURE IF INDICATED CULT NOT INDICATED; GLUCOSE,URINE NEG (NEG); KETONE, URINE NEG (NEG); MUCUS URINE FEW /lpf (OCC); NITRITE,URINE NEG (NEG); SQUAMOUS EPITHELIAL CELL URINE 11 /hpf (0-5); URINE COLOR YELLOW (YELLW/STRAW)
--- NOTE | 2016-11-08 17:42 | HHI.HP ---
HPI Service [facility] Primary Care Physician Armani Tate M.D. Admission Diagnosis copd exacerbation Diagnoses: Chief Complaint: Shortness of breath Travel History International Travel<30 Days: No Contact w/Intl Traveler <30 Da: No Traveled to Known Affected Are: No Sepsis Criteria SIRS Criteria (2 or more): WBC > 07801, < 4000 or > 10% bands History of Present Illness Patient is a 61-year-old white female with primary medical history of COPD, liver cirrhosis, hypothyroidism, chronic pain who came into the hospital because of worsening shortness of breath that started 2 days ago. States she woke up today unable to breathe use her inhaler but states it didn't helped her a lot. Denies any cough states she is unable to cough. Denies any chest pain, palpitations, dizziness, headache. States she is feeling much better. Patient hasn't gotten IV antibiotic azithromycin and ceftriaxone. She also got DuoNeb' s and Solu-Medrol dose. Patient states she has diarrhea but it is due to her liver cirrhosis that she needs to take lactulose. Otherwise denies nausea, vomiting, fevers, chills. Patient has been hospitalized 10/18/16 secondary to pneumonia patient was intubated, in critical care. Extubated she also had STEMI and was started on medications having to follow-up with Dr. Cruz. Patient had not seen Dr. Cruz in outpatient. WBC 14.7. BNP 449. CMP showed low B UN 4. Elevated AST 49 alkaline phosphatase 239 otherwise unremarkable. First troponin 0.04. TSH 12.2. EKG showed some ST-abnormality. Chest x-ray showed no acute cardiopulmonary abnormality. Review of Systems Other Negative except for what is noted on history of present illness. Past Family Social History Past Medical History COPD Liver cirrhosisquestionable hep C Hypothyroidism Chronic pain on pain management in outpatient with morphine 30 mg 3 times a day STEMI Past Surgical History Back surgery Wrist surgery Rectal fistula surgery Reported Medications Ventolin Hfa 18 GM Inh (Albuterol Sulfate) 90 Mcg/Act Aer 1 Puff INH Q6HR Spiriva Handihaler (Tiotropium Inh) 18 Mcg Cap 18 Mcg INH DAILY Coreg (Carvedilol) 12.5 Mg Tab 25 Mg PO Q12HR Lactulose Liq (Lactulose) 10 Gm/15 Ml Soln 30 Ml PO Q6H Verapamil (Verapamil HCl) 40 Mg Tab 40 Mg PO TID Aspirin 81 Mg Chew 81 Mg CHEW DAILY Multivitamin Adults (Multiple Vitamins W/ Minerals) 1 Tab 1 Tab PO DAILY Omeprazole 20 Mg Cap 20 Mg PO DAILY Levothyroxine (Levothyroxine Sodium) 125 Mcg Tab 125 Mcg PO DAILY Allergies: Coded Allergies: *MDRO Multi-Drug Resistant Organism (Verified Adverse Reaction, Unknown, MRSA, 11/08/16) MRSA screen POSITIVE - 10/23/16; MRSA (sputum)-10/19/16 Active Ordered Medications Current Medications Medications (Trade) Dose Ordered Sig/Renita Route Start Time Stop Time Status Last Admin (NS Flush) 2 ml UNSCH PRN IVF 11/08/16 11:45 11/08/16 12:14 (Nitrostat Sl) 0.4 mg Q5M PRN SL 11/08/16 16:30 (Heparin Inj) 5,000 units Q8H SQ 11/08/16 18:00 Family History Denies significant family medical history Social History Denies alcohol use Former smoker, quit since last hospital admission 10/18/16 Denies illicit drug use Physical Exam Vital Signs Vital Signs Date Time Temp Pulse Resp B/P Pulse Ox O2 Delivery O2 Flow Rate FiO2 11/08/16 14:00 70 16 121/71 95 Nasal Cannula 2 11/08/16 12:30 65 19 156/84 98 Nasal Cannula 2 11/08/16 12:13 20 95 Room Air 11/08/16 12:13 98 Nasal Cannula 2 11/08/16 12:00 64 16 149/77 95 Room Air 11/08/16 11:59 22 95 Nasal Cannula 2 11/08/16 10:02 97.9 70 16 165/76 98 Physical Exam GENERAL: This is a well-nourished, well-developed patient, in no apparent distress. SKIN: No rashes, ecchymoses or lesions. Cool and dry. HEAD: Atraumatic. Normocephalic. No temporal or scalp tenderness. EYES: Pupils equal round and reactive. Extraocular motions intact. No scleral icterus. No injection or drainage. ENT: Nose without bleeding. Throat without erythema. Uvula midline. Airway patent. NECK: Trachea midline. No JVD or lymphadenopathy. Supple, nontender, no meningeal signs. CARDIOVASCULAR: Regular rate and rhythm without murmurs, gallops, or rubs. RESPIRATORY: Minimal wheezing. Crackles throughout scattered right greater than the left GASTROINTESTINAL: Abdomen soft, non-tender, nondistended. Bowel sounds active 4. MUSCULOSKELETAL: Extremities without clubbing, cyanosis, or edema. Pulses palpable. No joint tenderness, effusion, or edema noted. No calf tenderness. NEUROLOGICAL: Awake and alert. Oriented 3. Cranial nerves II through XII intact. Motor and sensory grossly within normal limits. Five out of 5 muscle strength in all muscle groups. Normal speech. Laboratory Laboratory Tests Test 11/08/16 12:15 White Blood Count 14.7 Red Blood Count 3.62 Hemoglobin 11.8 Hematocrit 35.8 Mean Corpuscular Volume 99.0 Mean Corpuscular Hemoglobin 32.6 Mean Corpuscular Hemoglobin 32.9 Concent Red Cell Distribution Width 14.0 Platelet Count 439 Mean Platelet Volume 7.6 Neutrophils (%) (Auto) 79.8 Lymphocytes (%) (Auto) 11.6 Monocytes (%) (Auto) 6.5 Eosinophils (%) (Auto) 1.3 Basophils (%) (Auto) 0.8 Neutrophils # (Auto) 11.7 Lymphocytes # (Auto) 1.7 Monocytes # (Auto) 1.0 Eosinophils # (Auto) 0.2 Basophils # (Auto) 0.1 CBC Comment DIFF FINAL Differential Comment Prothrombin Time 10.5 Prothromb Time International 1.0 Ratio Activated Partial 26.3 Thromboplast Time D-Dimer Quantitative (PE/DVT) 0.32 Sodium Level 137 Potassium Level 4.0 Chloride Level 102 Carbon Dioxide Level 26.6 Anion Gap 8 Blood Urea Nitrogen 4 Creatinine 0.67 Estimat Glomerular Filtration 89 Rate Random Glucose 100 Calcium Level 9.0 Magnesium Level 1.8 Total Bilirubin 0.4 Aspartate Amino Transf 49 (AST/SGOT) Alanine Aminotransferase 43 (ALT/SGPT) Alkaline Phosphatase 239 Total Creatine Kinase 58 Troponin I 0.04 B-Type Natriuretic Peptide 449 Total Protein 7.1 Albumin 3.4 Thyroid Stimulating Hormone 12.200 3rd Gen Date/Time Procedure Status Source Growth 11/08/16 12:40 Influenza Types A,B Antigen ([facility]) - Final Complete Nasal Washing NEGATIVE FOR FLU A AND B ANTIGEN.... Result Diagram: 11/08/16 1215 11/08/16 1215 Assessment and Plan Problem List: (1) COPD (chronic obstructive pulmonary disease) with acute bronchitis ICD Code: J44.0 Status: Acute (2) ST segment changes on electrocardiogram ICD Code: R94.31 Status: Acute (3) Leukocytosis ICD Code: D72.829 Status: Acute (4) Hypothyroidism ICD Code: E03.9 Status: Chronic (5) Liver cirrhosis ICD Code: K74.60 Status: Chronic Assessment and Plan Patient is a 61-year-old female who came in with worsening shortness of breath. Previously admitted to the hospital 10/18/16 for respiratory failure secondary to pneumonia patient was intubated and extubated 10/23/16. Also had STEMI. COPD exacerbation - chest x-ray showed no acute cardiopulmonary abnormalities identified. Azithromax, ceftriaxone and solumedrol given in ED - Will start patient on Solu-Medrol iv - Azithromax 250mg x5 days - DuoNeb's every 6 hours scheduled, every 2 hours when necessary - Monitor respiratory status Rule out ACS - first troponin 0.04. We will do serial troponin. Patient was given aspirin in the ED - Check CK-MB - Check CBC BMP lipid profile - Consult cardiology. Patient was followed by Dr. Cruz previously. Dr. Saenz was notified by ED - Nitroglycerin when necessary for chest pain -moslty will need stress test Liver cirrhosis - on lactulose TID. Will check ammonia level Former smoker - nicotine patch Hypothyroidism - TSH elevated at 12.2. Continue levothyroxine - check free T3, T4 DVT prop heparin Written by Aleksander Lowe, acting as scribe for Dr. Asencio on 11/08/16 at 17:06. Code Status Full code Discussed Condition With Patient, RN, ED attending. Problem Qualifiers (1) Leukocytosis: Qualified Code: D72.829 - Leukocytosis, unspecified type Aleksander Bravo Nov 08, 2016 17:42 Girma Asencio MD Nov 08, 2016 18:26
[2016-11-08] MEDS: HEPARIN SODIUM - SQ 10,000 UNITS/ML VIAL SQ SCH (18:28)
[2016-11-08] MEDS: RESP: ALBUTEROL 2.5 MG/IPRATROPIUM 0.5 MG NEB (SCH) NEB (18:51)
[2016-11-08] MEDS: methylPREDNISolone SOD SUCC 40 MG/1 ML VIAL IV PUSH SCH (21:36)
--- NOTE | 2016-11-08 23:02 | EKG ---
Date Performed: 11/08/2016 Time Performed: 12:06:02 PTAGE: 61 years EKG: Sinus rhythm ST DEVIATION AND MARKED T-WAVE ABNORMALITY, CONSIDER ANTEROLATERAL ISCHEMIA ST DEVIATION AND MODERAT E T-WAVE ABNORMALITY, CONSIDER INFERIOR ISCHEMIA ABNORMAL ECG PREVIOUS TRACING : 10/18/2016 23.19 Compared to the previous tracing, minimal ST elevations are now normalized, more extensive T wave inversions DOCTOR: Erasmo Saenz Interpretating Date/Time 11/08/2016 23:00:07
[2016-11-09] VITALS (9 sets, daily range): BP systolic 99–134; BP diastolic 58–75; PULSE 68–80; RESP 18–20; TEMP 96.6–98.4; O2SAT 93–97
[2016-11-09] MEDS: HEPARIN SODIUM - SQ 10,000 UNITS/ML VIAL SQ SCH ×3 (02:39→17:25)
[2016-11-09] MEDS: RESP: ALBUTEROL 2.5 MG/IPRATROPIUM 0.5 MG NEB (PRN) NEB (02:44)
[2016-11-09 04:34] LABS: AUTOMATED NEUTROPHIL # 9.6 TH/MM3 (1.8-7.7); BASOPHIL % 0.4 % (0.0-2.0); EOSINOPHIL % 0.1 % (0.0-4.0); HEMATOCRIT 33.9 % (35.0-46.0); HEMO FLAGS DIFF FINAL; LYMPHOCYTE # 0.6 TH/MM3 (1.0-4.8); MEAN CELL VOLUME 98.5 FL (80.0-100.0); MEAN CORPUSCULAR HEMOGLOBIN 32.8 PG (27.0-34.0); MEAN CORPUSCULAR HGB CONC 33.3 % (32.0-36.0); MONO % 1.2 % (0.0-8.0); NEUT % 92.3 % (16.0-70.0); PLATELET COUNT 338 TH/MM3 (150-450); RED BLOOD COUNT 3.44 MIL/MM3 (4.00-5.30); RED CELL DISTRIBUTION WIDTH 13.8 % (11.6-17.2); WHITE BLOOD COUNT 10.4 TH/MM3 (4.0-11.0)
[2016-11-09 05:19] LABS: ANION GAP 9 MEQ/L (5-15); BICARBONATE 26.2 MEQ/L (21.0-32.0); BLOOD UREA NITROGEN 11 MG/DL (7-18); CHLORIDE 101 MEQ/L (98-107); GLOMERULAR FILTRATION RATE 65 ML/MIN (>89); POTASSIUM 4.1 MEQ/L (3.5-5.1); SODIUM (NA) 136 MEQ/L (136-145)
[2016-11-09 05:21] LABS: CREATINE KINASE 34 U/L (26-192)
[2016-11-09] MEDS: RESP: ALBUTEROL 2.5 MG/IPRATROPIUM 0.5 MG NEB (SCH) NEB ×2 (07:55→19:53)
--- NOTE | 2016-11-09 09:00 | MB ---
cc: DEX SALGUERO MD DATE OF CONSULTATION 11/09/2016 REASON FOR CONSULTATION EKG changes. HISTORY OF PRESENT ILLNESS Ms. Stanton is a 61-year-old female who presented earlier last month after being found down by a neighbor with altered mental status and respiratory failure. Her EKG had ST changes more consistent with pericarditis. Her echocardiogram at that time showed an EF of 45-50%. The patient subsequently was able to be weaned off the ventilator and treated for Klebsiella pneumoniae. She was to have a nuclear stress test prior to discharge, but apparently did not. She reports that since her discharge she has progressively gotten stronger every day. She has not had any chest pains. Yesterday morning she awoke and had some shortness of breath and chest tightness. She reports that tried the inhaler and did get some improvement, however, it was not enough and thus she came back to the emergency room. She reports a dry cough and diarrhea recently. She was afraid that she had not quite gotten over her pneumonia and again came to the emergency room. Of note, the patient has not followed up with me. She indicates she was not able to get my contact information from the hospital. Today I was consulted secondary to her prior cardiac issues and EKG changes with T-wave inversions. PAST MEDICAL HISTORY Significant for - 1. Non-ST elevation OK. 2. COPD. 3. Liver cirrhosis with questionable hepatitis C. 4. Hypothyroidism. 5. Chronic pain. PAST SURGICAL HISTORY 1. Back surgery. 2. Wrist surgery. 3. Rectal fistula surgery. OUTPATIENT MEDICATIONS Reportedly included - 1. Ventolin. 2. Spiriva. 3. Coreg. 4. Lactulose. 5. Verapamil. 6. Aspirin. 7. Omeprazole. 8. Levothyroxine. ALLERGIES No known drug allergies. SOCIAL HISTORY The patient is a former smoker and quit last month. She does not us any alcohol or illicit drugs. FAMILY HISTORY Noncontributory. REVIEW OF SYSTEMS Except as mentioned in the HPI, all 12 systems are negative. PHYSICAL EXAMINATION VITAL SIGNS: Currently in 98.1, 76, 20, 134/75. IN GENERAL: She is a thin female who is in no apparent distress. NECK: Free from JVD. LUNGS: Wheezing and rhonchi in the bases. CARDIOVASCULAR EXAMINATION: She has a normal S1 and S2. I did not appreciate any murmurs, rubs or gallops. ABDOMEN: Soft. EXTREMITIES: Free from edema. CHEST X-RAY Negative for any acute changes. LABORATORY VALUES Significant for an initial white count of 14.7 and a hemoglobin of 11.3. Her initial troponin is less than 0.02. Her LDL is 177. TSH on arrival was 12.2. EKG - This shows normal sinus rhythm with T-wave inversions and a somewhat long QT. IMPRESSIONS AND RECOMMENDATIONS EKG changes - The patient presented with significant shortness of breath and has now had deep T-wave inversions. This is more than what we would typically see with mild hypoxemia. Her initial enzymes were also negative. Nonetheless, given her prior history, I would like to get a stress test. She is wheezing a bit too much for this today. Thus, I would like to have the hospitalist continue to optimize her COPD and would anticipate a stress test tomorrow morning. Recent non-ST elevation OK - The patient should be on aspirin and I will restart her on 81 mg a day. It is reasonable to continue her carvedilol. Lipids - I would start the patient on a statin. COPD - This will be managed by the primary team. Hypothyroidism - Her TSH on arrival of 12.2 is concerning. It will be managed by the primary team. Dex Salguero M.D. ALMA/DUANE /7:47 AM /8:45 AM
[2016-11-09] MEDS: CARVEDILOL 6.25 MG TAB PO SCH ×2 (09:13→21:29)
[2016-11-09] MEDS: AZITHROMYCIN 250 MG TAB PO SCH (09:13)
[2016-11-09] MEDS: methylPREDNISolone SOD SUCC 40 MG/1 ML VIAL IV PUSH SCH ×3 (09:13→21:30)
[2016-11-09] MEDS: ASPIRIN 81 MG CHEW TAB PO SCH (09:13)
[2016-11-09] MEDS ORDERED: MORP1TAB25 PO (10:03)
[2016-11-09] MEDS ORDERED: NEBULIZER1 MI1 (11:10)
[2016-11-09 12:33] LABS: FREE T3 1.61 PG/ML (2.18-3.98); FREE T4 1.17 NG/DL (0.76-1.46)
[2016-11-09] MEDS: MORPHINE SULFATE 30 MG TAB PO SCH ×2 (12:58→21:29)
--- NOTE | 2016-11-09 16:52 | HHI.PR ---
Subjective Remarks Resting in bed, on nasal cannula, still feeling slightly short of breath but better than yesterday, no fever or chills, less wheezing today Objective Vitals Vital Signs Date Time Temp Pulse Resp B/P Pulse Ox O2 Delivery O2 Flow Rate FiO2 11/09/16 16:18 96.6 73 18 108/69 94 11/09/16 11:32 96.6 74 18 108/68 96 11/09/16 07:55 96 21 11/09/16 07:11 98.1 76 20 134/75 95 11/09/16 04:26 98.4 76 18 120/64 96 11/09/16 02:46 97 11/09/16 00:29 98.1 68 20 99/58 93 11/08/16 20:52 98.1 69 20 101/60 95 11/08/16 19:25 72 20 118/78 94 Room Air 11/08/16 18:00 68 16 108/58 94 Room Air Result Diagram: 11/09/1642211/09/16 042 Objective Remarks GENERAL: This is a well-nourished, well-developed patient, in no apparent distress. CARDIOVASCULAR: Regular rate and rhythm without murmurs, gallops, or rubs. RESPIRATORY: Bilateral wheezes less than yesterday, fair air entry GASTROINTESTINAL: Abdomen soft, non-tender,nondistended. Normal active bowel sounds MUSCULOSKELETAL: Extremities without clubbing, cyanosis, or edema. NEURO: Alert & Oriented x4 to person, place, time, situation. Moves all ext x4 A/P Problem List: (1) COPD (chronic obstructive pulmonary disease) with acute bronchitis ICD Code: J44.0 Status: Acute (2) ST segment changes on electrocardiogram ICD Code: R94.31 Status: Acute (3) Leukocytosis ICD Code: D72.829 Status: Acute (4) Hypothyroidism ICD Code: E03.9 Status: Chronic (5) Liver cirrhosis ICD Code: K74.60 Status: Chronic Assessment and Plan Patient is a 61-year-old female who came in with worsening shortness of breath. Previously admitted to the hospital 10/18/16 for respiratory failure secondary to pneumonia patient was intubated and extubated 10/23/16. Also had STEMI. COPD exacerbation - chest x-ray showed no acute cardiopulmonary abnormalities identified. Azithromax, ceftriaxone and solumedrol given in ED -Continue on Solu-Medrol iv - Azithromax 250mg x5 days - DuoNeb's every 6 hours scheduled, every 2 hours when necessary - Monitor respiratory status Rule out ACS - first troponin 0.04. We will do serial troponin. Patient was given aspirin in the ED -Cardiac enzymes negative -Reviewed CBC BMP -lipid profile showed LDL 177, HDL 65 -Appreciate Dr. Cruz consultation, will need stress test one COPD improved - Nitroglycerin when necessary for chest pain Liver cirrhosis - on lactulose TID. Will check ammonia level Former smoker - nicotine patch Hypothyroidism - TSH elevated at 12.2. Continue levothyroxine - free T3, T4 within normal limits, continue Synthroid, repeat TSH in a few weeks DVT prop heparin Problem Qualifiers (1) Leukocytosis: Qualified Code: D72.829 - Leukocytosis, unspecified type Girma Asencio MD Nov 09, 2016 16:52
--- NOTE | 2016-11-09 17:20 | EKG ---
Date Performed: 11/09/2016 Time Performed: 08:21:12 PTAGE: 61 years EKG: Sinus rhythm MARKED T-WAVE ABNORMALITY, CONSIDER ANTEROLATERAL ISCHEMIA MODERATE T-WAVE ABNORMALITY, CONSIDER INF ERIOR ISCHEMIA Compared to prior tracing no significant change ABNORMAL ECG PREVIOUS TRACING : 11/08/2016 12.06 DOCTOR: Radha Golden Interpretating Date/Time 11/09/2016 17:18:47
[2016-11-09] MEDS: ATORVASTATIN 80 MG TAB PO SCH (21:29)
[2016-11-10] VITALS: BP 111/65; PULSE 75; RESP 20; TEMP 97.9; O2SAT 96
[2016-11-10] MEDS: methylPREDNISolone SOD SUCC 40 MG/1 ML VIAL IV PUSH SCH ×4 (02:27→20:17)
[2016-11-10] MEDS: HEPARIN SODIUM - SQ 10,000 UNITS/ML VIAL SQ SCH ×3 (02:27→18:02)
[2016-11-10 04:05] VITALS: BP 129/72; PULSE 62; RESP 20; TEMP 98; O2SAT 94
[2016-11-10] MEDS: RESP: ALBUTEROL 2.5 MG/IPRATROPIUM 0.5 MG NEB (PRN) NEB (04:23)
[2016-11-10] MEDS: MORPHINE SULFATE 30 MG TAB PO SCH ×3 (04:38→20:17)
[2016-11-10] MEDS: LEVOTHYROXINE SODIUM 125 MCG TAB PO SCH (05:58)
[2016-11-10 08:00] VITALS: BP_SYST 113; BP_SYST 132; BP_DIAS 62; BP_DIAS 72; PULSE 64; PULSE 91; RESP 18; RESP 20; TEMP 96.3; TEMP 97.8; O2SAT 95; O2SAT 99
--- NOTE | 2016-11-10 08:52 | PD.CARD.PN ---
Subjective Subjective Remarks Pt reports she is improving Objective Medications Current Medications Medications (Trade) Dose Ordered Sig/Renita Route Start Time Stop Time Status Last Admin (NS Flush) 2 ml UNSCH PRN IVF 11/08/16 11:45 11/08/16 21:36 (Nitrostat Sl) 0.4 mg Q5M PRN SL 11/08/16 16:30 (Heparin Inj) 5,000 units Q8H SQ 11/08/16 18:00 11/10/16 02:27 (Zithromax) 250 mg DAILY PO 11/09/16 09:00 11/14/16 08:59 11/09/16 09:13 (Aspirin Chew) 81 mg DAILY PO 11/09/16 09:00 11/09/16 09:13 (Coreg) 6.25 mg Q12HR PO 11/09/16 09:00 11/09/16 21:29 (Lipitor) 80 mg HS PO 11/09/16 21:00 11/09/16 21:29 (SoluMEDROL INJ) 40 mg Q6H IV PUSH 11/09/16 15:00 11/10/16 02:27 (Synthroid) 125 mcg DAILY@0600 PO 11/10/16 06:00 11/10/16 05:58 (Msir) 30 mg Q8H PO 11/09/16 12:00 11/10/16 04:38 Vital Signs / I&O Vital Signs Date Time Temp Pulse Resp B/P Pulse Ox O2 Delivery O2 Flow Rate FiO2 11/10/16 08:00 96.3 64 20 132/72 99 11/10/16 08:00 97.8 91 18 113/62 95 11/10/16 05:58 18 11/10/16 04:05 98.0 62 20 129/72 94 11/10/16 00:00 97.9 75 20 111/65 96 11/09/16 21:20 97.9 80 20 114/63 94 11/09/16 19:53 95 21 11/09/16 16:18 96.6 73 18 108/69 94 11/09/16 11:32 96.6 74 18 108/68 96 Physical Exam GENERAL: Well developed, well nourished. No acute distress. HEENT: Jugular venous pressure is normal. CHEST: Lungs decreased and clear to auscultation bilaterally, post cough. Unlabored respiratory effort. CARDIAC: Regular rate and rhythm without S3, S4, or murmur. ABDOMEN: Soft, nontender, no hepatosplenomegaly. Bowel sounds present. EXTREMITIES: No clubbing, cyanosis, or edema. Imaging Last 72 hours Impressions Chest X-Ray 11/08/16 0000 Signed Impressions: Service Date/Time: Tuesday, November 08, 2016 11:57 - CONCLUSION: No acute cardiopulmonary abnormality is identified. Lucas Kumar MD Assessment and Plan Assessment and Plan Abnormal ECG- new deeply inverted T waves with neg trop -geo nuc stress today URI- per primary team Cait Cruz MD Nov 10, 2016 08:52
[2016-11-10] MEDS: ASPIRIN 81 MG CHEW TAB PO SCH (08:55)
[2016-11-10] MEDS: CARVEDILOL 6.25 MG TAB PO SCH ×2 (08:56→20:17)
[2016-11-10] MEDS: AZITHROMYCIN 250 MG TAB PO SCH (08:56)
[2016-11-10] MEDS ORDERED: DEXTROSE 50% IN WATER 50 ML VIAL(D50) IV PUSH PRN (09:30)
[2016-11-10] MEDS: RESP: ALBUTEROL 2.5 MG/IPRATROPIUM 0.5 MG NEB (SCH) NEB ×3 (09:30→19:31)
[2016-11-10] MEDS ORDERED: GLUCAGON 1 MG/ML VIAL OTHER PRN (09:30)
[2016-11-10] MEDS ORDERED: REGADENOSON INJ 0.4 MG/5 ML SYR ONE (10:25)
--- NOTE | 2016-11-10 11:54 | RADRPT ---
EXAM DATE/TIME: 11/10/2016 09:53 [facility] COMPARISON: CHEST PA & LAT, November 08, 2016, 11:57. INDICATIONS : Substernal chest pain with dyspnea and EKG changes. Angina. Myocardial infarction. DOSE: 25.8 mCi Tc99m Myoview at stress. 8.5 mCi Tc99m Myoview at rest. 0.4 mg Lexiscan STRESS SYMPTOMS: Shortness of breath. EJECTION FRACTION: 68% MEDICAL HISTORY : Hypothyroidism. Chronic obstructive pulmonary disease. Cirrhosis. Myocardial infarction. SURGICAL HISTORY : Back surgery, wrist surgery and rectal fistula surgery. ENCOUNTER: Subsequent ACUITY: 1 week PAIN SCALE: 6/10 LOCATION: Substernal chest TECHNIQUE: The patient underwent pharmacologic stress with infusion of prescribed dose. Continuous ECG tracing was monitored during stress. Gated SPECT imaging was performed after stress and conventional SPECT i maging was performed at rest. The examination was performed on a SPECT/CT scanner, both attenuation and non-corrected datasets were reviewed. FINDINGS: DISTRIBUTION: The maximum perfused segment at stress is in the septal wall. PERFUSION STUDY: The pattern of perfusion at stress is within normal limits. GATED STUDY: There is intact wall motion and thickening without hypokinetic or dyskinetic segments. CONCLUSION: Normal examination. RISK CATEGORY: Low (<1% Annual Mortality Rate) Presley Walden MD on November 10, 2016 at 11:51 Board Certified Radiologist. This report was verified electronically.
[2016-11-10] MEDS: INSULIN NovoLIN REGULAR SUPPLEMENTAL SCALE SQ SCH ×4 (11:57→20:24)
[2016-11-10 12:31] VITALS: BP 135/71; PULSE 87; RESP 20; TEMP 98.6; O2SAT 99
[2016-11-10] MEDS ORDERED: SYMB80AE INH (13:21)
[2016-11-10] MEDS ORDERED: LACT10SO PO (13:21)
[2016-11-10] MEDS ORDERED: ZITH250T PO (13:21)
[2016-11-10] MEDS ORDERED: LIPI80TA PO (13:21)
[2016-11-10] MEDS ORDERED: MEDR4PAK PO (13:21)
[2016-11-10] MEDS ORDERED: CARV6.25 PO (13:21)
[2016-11-10 16:00] VITALS: BP 135/71; PULSE 85; RESP 20; TEMP 97.6; O2SAT 98
--- NOTE | 2016-11-10 16:09 | HHI.PR ---
Subjective Remarks Patient laying in bed doing well, she had a stress test which was negative in a.m., less wheezing, will check her walk O2 test and if she is stable we'll send her on COPD medical management, and to follow up with Dr. Cruz if cleared by cardiology Objective Vitals Vital Signs Date Time Temp Pulse Resp B/P Pulse Ox O2 Delivery O2 Flow Rate FiO2 11/10/16 12:53 16 11/10/16 12:31 98.6 87 20 135/71 99 11/10/16 08:00 96.3 64 20 132/72 99 11/10/16 08:00 97.8 91 18 113/62 95 11/10/16 04:05 98.0 62 20 129/72 94 11/10/16 00:00 97.9 75 20 111/65 96 11/09/16 21:20 97.9 80 20 114/63 94 11/09/16 19:53 95 21 11/09/16 16:18 96.6 73 18 108/69 94 I/O 11/09/16 11/09/16 11/09/16 11/10/16 11/10/16 11/10/16 07:00 15:00 23:00 07:00 15:00 23:00 Intake Total 480 ml Balance 480 ml Intake Oral 480 ml # Voids 3 # Bowel Movements 1 Result Diagram: 11/09/163 11/09/16 042 Objective Remarks GENERAL: This is a well-nourished, well-developed patient, in no apparent distress. CARDIOVASCULAR: Regular rate and rhythm without murmurs, gallops, or rubs. RESPIRATORY: Wheezes are less, fair air entry GASTROINTESTINAL: Abdomen soft, non-tender,nondistended. Normal active bowel sounds MUSCULOSKELETAL: Extremities without clubbing, cyanosis, or edema. NEURO: Alert & Oriented x4 to person, place, time, situation. Moves all ext x4 A/P Problem List: (1) COPD (chronic obstructive pulmonary disease) with acute bronchitis ICD Code: J44.0 Status: Acute (2) ST segment changes on electrocardiogram ICD Code: R94.31 Status: Acute (3) Leukocytosis ICD Code: D72.829 Status: Acute (4) Hypothyroidism ICD Code: E03.9 Status: Chronic (5) Liver cirrhosis ICD Code: K74.60 Status: Chronic Assessment and Plan Patient is a 61-year-old female who came in with worsening shortness of breath. Previously admitted to the hospital 10/18/16 for respiratory failure secondary to pneumonia patient was intubated and extubated 10/23/16. Also had STEMI. COPD exacerbation - chest x-ray showed no acute cardiopulmonary abnormalities identified. Azithromax, ceftriaxone and solumedrol given in ED -Switch Solu-Medrol iv 2 Medrol Dosepak at discharge - Azithromax 250mg x5 days - DuoNeb's every 6 hours scheduled, every 2 hours when necessary - Monitor respiratory status Rule out ACS - first troponin 0.04. We will do serial troponin. Patient was given aspirin in the ED -Cardiac enzymes negative -Reviewed CBC BMP -lipid profile showed LDL 177, HDL 65 -Appreciate Dr. Cruz consultation, stress test on 11/10/16 is negative -Patient to follow with Dr. Cruz as an outpatient Liver cirrhosis - on lactulose TID. Normal ammonia level, will keep lactulose and the lowest once a day Former smoker - nicotine patch Steroid induced hyperglycemia: Initiate Accu-Chek with sliding scale of insulin , expect to be improving one switch to by mouth prednisone, recent H1 C was 5, patient denied being diabetic Hypothyroidism - TSH elevated at 12.2. Continue levothyroxine - free T3, T4 within normal limits, continue Synthroid, repeat TSH in a few weeks follow up with PCP DVT prop heparin Discharge Planning Discharge patient to home Condition on discharge: Improved Healthy heart Diet as tolerated Ad Kathy activity Rx written: See med rec Follow-up with primary care physician in one week, cardiology as directed Problem Qualifiers (1) Leukocytosis: Qualified Code: D72.829 - Leukocytosis, unspecified type Girma Asencio MD Nov 10, 2016 16:09
--- NOTE | 2016-11-10 16:10 | HHI.DS ---
Discharge Summary Admission Date Nov 08, 2016 at 15:20 Discharge Date: Nov 10, 2016 Admitting Diagnosis copd exacerbation (1) COPD (chronic obstructive pulmonary disease) with acute bronchitis ICD Code: J44.0 (2) ST segment changes on electrocardiogram ICD Code: R94.31 (3) Leukocytosis ICD Code: D72.829 (4) Hypothyroidism ICD Code: E03.9 (5) Liver cirrhosis ICD Code: K74.60 Procedures Stress test Brief History - From Admission Patient is a 61-year-old white female with primary medical history of COPD, liver cirrhosis, hypothyroidism, chronic pain who came into the hospital because of worsening shortness of breath that started 2 days ago. States she woke up today unable to breathe use her inhaler but states it didn't helped her a lot. Denies any cough states she is unable to cough. Denies any chest pain, palpitations, dizziness, headache. States she is feeling much better. Patient hasn't gotten IV antibiotic azithromycin and ceftriaxone. She also got DuoNeb' s and Solu-Medrol dose. Patient states she has diarrhea but it is due to her liver cirrhosis that she needs to take lactulose. Otherwise denies nausea, vomiting, fevers, chills. Patient has been hospitalized 10/18/16 secondary to pneumonia patient was intubated, in critical care. Extubated she also had STEMI and was started on medications having to follow-up with Dr. Cruz. Patient had not seen Dr. Cruz in outpatient. WBC 14.7. BNP 449. CMP showed low B UN 4. Elevated AST 49 alkaline phosphatase 239 otherwise unremarkable. First troponin 0.04. TSH 12.2. EKG showed some ST-abnormality. Chest x-ray showed no acute cardiopulmonary abnormality. CBC/BMP: 11/09/16 0423 11/09/16 0423 Significant Findings Laboratory Tests Test 11/08/16 11/08/16 11/09/16 11/09/16 12:15 17:00 00:09 04:23 White Blood Count 14.7 TH/MM3 (4.0-11.0) Red Blood Count 3.62 MIL/MM3 3.44 MIL/MM3 (4.00-5.30) (4.00-5.30) Neutrophils (%) (Auto) 79.8 % 92.3 % (16.0-70.0) (16.0-70.0) Neutrophils # (Auto) 11.7 TH/MM3 9.6 TH/MM3 (1.8-7.7) (1.8-7.7) Monocytes # (Auto) 1.0 TH/MM3 (0-0.9) Blood Urea Nitrogen 4 MG/DL (7-18) Aspartate Amino Transf 49 U/L (15-37) (AST/SGOT) Alkaline Phosphatase 239 U/L (45-117) B-Type Natriuretic Peptide 449 PG/ML (0-100) Thyroid Stimulating Hormone 12.200 uIU/ML 3rd Gen (0.358-3.740) Urine Turbidity HAZY (CLEAR) Urine Leukocyte Esterase SMALL (NEG) Urine Mucus FEW /lpf (OCC) Cholesterol Level 254 MG/DL (120-200) LDL Cholesterol 177 MG/DL (0-99) HDL Cholesterol 65.0 MG/DL (40.0-60.0) Hemoglobin 11.3 GM/DL (11.6-15.3) Hematocrit 33.9 % (35.0-46.0) Lymphocytes (%) (Auto) 6.0 % (9.0-44.0) Lymphocytes # (Auto) 0.6 TH/MM3 (1.0-4.8) Estimat Glomerular Filtration 65 ML/MIN (>89) Rate Random Glucose 253 MG/DL (74-106) Troponin I LESS THAN 0.02 NG/ML (0.02-0.05) Free Triiodothyronine (T3) 1.61 PG/ML pg/dL (2.18-3.98) PE at Discharge GENERAL: This is a well-nourished, well-developed patient, in no apparent distress. CARDIOVASCULAR: Regular rate and rhythm without murmurs, gallops, or rubs. RESPIRATORY: Wheezes are less, fair air entry GASTROINTESTINAL: Abdomen soft, non-tender,nondistended. Normal active bowel sounds MUSCULOSKELETAL: Extremities without clubbing, cyanosis, or edema. NEURO: Alert & Oriented x4 to person, place, time, situation. Moves all ext x4 Hospital Course Patient is a 61-year-old female who came in with worsening shortness of breath. Previously admitted to the hospital 10/18/16 for respiratory failure secondary to pneumonia patient was intubated and extubated 10/23/16. Also had STEMI. COPD exacerbation - chest x-ray showed no acute cardiopulmonary abnormalities identified. Azithromax, ceftriaxone and solumedrol given in ED -Switch Solu-Medrol iv 2 Medrol Dosepak at discharge - Azithromax 250mg x5 days - DuoNeb's every 6 hours scheduled, every 2 hours when necessary - Monitor respiratory status Rule out ACS - first troponin 0.04. We will do serial troponin. Patient was given aspirin in the ED -Cardiac enzymes negative -Reviewed CBC BMP -lipid profile showed LDL 177, HDL 65 -Appreciate Dr. Cruz consultation, stress test on 11/10/16 is negative -Patient to follow with Dr. Cruz as an outpatient Liver cirrhosis - on lactulose TID. Normal ammonia level, will keep lactulose and the lowest once a day Former smoker - nicotine patch Hypothyroidism - TSH elevated at 12.2. Continue levothyroxine - free T3, T4 within normal limits, continue Synthroid, repeat TSH in a few weeks follow up with PCP Pt Condition on Discharge: Fair Discharge Disposition: Discharge Home Discharge Time: <= 30 minutes Discharge Instructions DIET: Follow Instructions for: Heart Healthy Diet Activities you can perform: Weight Bearing as [place] Follow up Referrals: Cardiology - 1 Week with Cait Cruz MD New Medications: Budesonide-Formoterol Inh (Symbicort Inh) 80-4.5 Mcg/Act Aero 2 PUFF INH Q12HR Asthma Management #1 Ref 0 INHALER Lactulose Liq (Lactulose Liq) 10 Gm/15 Ml Soln 30 ML PO DAILY PRN liver #30 Ref 0 ML Methylprednisolone Dosepak (Medrol Dosepak) 4 Mg Dspk 4 MG PO DIRECTED Per Pharmacist direction #1 Ref 0 DSPK Nebulizer (Nebulizer) 1 Mis Mis 1 EA .ROUTE DIRECTED Breathing Treatment #1 Ref 0 EA Atorvastatin (Lipitor) 80 Mg Tab 80 MG PO HS hld #30 TAB Azithromycin (Zithromax) 250 Mg Tab 250 MG PO DAILY copd #2 TAB Carvedilol (Coreg) 6.25 Mg Tab 6.25 MG PO Q12HR cmp #60 TAB Continued Medications: Albuterol 18 GM Inh (Ventolin Hfa 18 GM Inh) 90 Mcg/Act Aer 1 PUFF INH Q6HR COPD #1 Ref 1 INHALER Aspirin (Aspirin) 81 Mg Chew 81 MG CHEW DAILY Ref 0 TAB Levothyroxine (Levothyroxine) 125 Mcg Tab 125 MCG PO DAILY Thyroid #30 Ref 0 TAB Morphine ER (Morphine ER) 30 Mg Tab 30 MG PO Q8H Pain Management Ref 0 TAB Omeprazole (Omeprazole) 20 Mg Cap 20 MG PO DAILY Tiotropium Inh (Spiriva Handihaler) 18 Mcg Cap 18 MCG INH DAILY COPD #1 Ref 1 CAP Girma Asencio MD Nov 10, 2016 16:10
[2016-11-10 19:03] VITALS: BP 148/70; PULSE 80; RESP 20; TEMP 97; O2SAT 98
[2016-11-10] MEDS: ATORVASTATIN 80 MG TAB PO SCH (20:17)
[2016-11-11 01:18] VITALS: BP 142/81; PULSE 78; RESP 18; TEMP 97.9; O2SAT 96
[2016-11-11] MEDS: HEPARIN SODIUM - SQ 10,000 UNITS/ML VIAL SQ SCH ×2 (03:16→10:00)
[2016-11-11] MEDS: MORPHINE SULFATE 30 MG TAB PO SCH (03:17)
[2016-11-11] MEDS: methylPREDNISolone SOD SUCC 40 MG/1 ML VIAL IV PUSH SCH ×2 (03:17→10:31)
[2016-11-11] MEDS: LEVOTHYROXINE SODIUM 125 MCG TAB PO SCH (05:20)
[2016-11-11] MEDS: INSULIN NovoLIN REGULAR SUPPLEMENTAL SCALE SQ SCH (05:25)
--- NOTE | 2016-11-11 07:16 | PD.CARD.PN ---
Subjective Subjective Remarks Pt without complaint Objective Medications Current Medications Medications (Trade) Dose Ordered Sig/Renita Route Start Time Stop Time Status Last Admin (NS Flush) 2 ml UNSCH PRN IVF 11/08/16 11:45 11/08/16 21:36 (Nitrostat Sl) 0.4 mg Q5M PRN SL 11/08/16 16:30 (Heparin Inj) 5,000 units Q8H SQ 11/08/16 18:00 11/11/16 03:16 (Zithromax) 250 mg DAILY PO 11/09/16 09:00 11/14/16 08:59 11/10/16 08:56 (Aspirin Chew) 81 mg DAILY PO 11/09/16 09:00 11/10/16 08:55 (Coreg) 6.25 mg Q12HR PO 11/09/16 09:00 11/10/16 20:17 (Lipitor) 80 mg HS PO 11/09/16 21:00 11/10/16 20:17 (SoluMEDROL INJ) 40 mg Q6H IV PUSH 11/09/16 15:00 11/11/16 03:17 (Synthroid) 125 mcg DAILY@0600 PO 11/10/16 06:00 11/11/16 05:20 (Msir) 30 mg Q8H PO 11/09/16 12:00 11/11/16 03:17 (D50w (Vial) Inj) 25 ml UNSCH PRN IV PUSH 11/10/16 09:30 (Glucagon Inj) 1 mg UNSCH PRN OTHER 11/10/16 09:30 Vital Signs / I&O Vital Signs Date Time Temp Pulse Resp B/P Pulse Ox O2 Delivery O2 Flow Rate FiO2 11/11/16 04:24 20 11/11/16 01:18 97.9 78 18 142/81 96 11/10/16 19:03 97.0 80 20 148/70 98 11/10/16 16:00 97.6 85 20 135/71 98 11/10/16 12:31 98.6 87 20 135/71 99 11/10/16 08:00 96.3 64 20 132/72 99 11/10/16 08:00 97.8 91 18 113/62 95 I/O 11/10/16 11/10/16 11/10/16 11/11/16 11/11/1625/17 07:00 15:00 23:00 07:00 15:00 23:00 Intake Total 480 ml Balance 480 ml Intake Oral 480 ml # Voids 3 # Bowel Movements 1 Physical Exam GENERAL: Well developed, well nourished. No acute distress. HEENT: Jugular venous pressure is normal. CHEST: Lungs decreased and clear to auscultation bilaterally, post cough. Unlabored respiratory effort. CARDIAC: Regular rate and rhythm without S3, S4, or murmur. ABDOMEN: Soft, nontender, no hepatosplenomegaly. Bowel sounds present. EXTREMITIES: No clubbing, cyanosis, or edema. Imaging Last 72 hours Impressions Myocardial Perfusion Scan Nuc Med 11/10/16 0000 Signed Impressions: Service Date/Time: Thursday, November 10, 2016 09:53 - CONCLUSION: Normal examination. RISK CATEGORY: Low (<1%% Annual Mortality Rate) Presley Walden MD Assessment and Plan Assessment and Plan Abnormal ECG- new deeply inverted T waves with neg trop -geo nuc was normal Cardiomyopathy- resolved, likely was related to stunning from hypoxia HTN- add bunny URI- per primary team ok for d/c, available Cait Ley MD Nov 11, 2016 07:16
[2016-11-11] MEDS: RESP: ALBUTEROL 2.5 MG/IPRATROPIUM 0.5 MG NEB (SCH) NEB ×2 (07:39→13:08)
[2016-11-11 07:41] VITALS: O2SAT 98
[2016-11-11] MEDS ORDERED: LISINOPRIL 5 MG TAB PO SCH (09:00)
[2016-11-11 09:09] VITALS: BP 169/79; PULSE 75; RESP 20; TEMP 98.1; O2SAT 97
[2016-11-11] MEDS: ASPIRIN 81 MG CHEW TAB PO SCH (10:31)
[2016-11-11] MEDS: AZITHROMYCIN 250 MG TAB PO SCH (10:31)
[2016-11-11] MEDS: SODIUM CHLORIDE 0.9% FLUSH 5 ML FLUSH IVF PRN (10:31)
[2016-11-11] MEDS: CARVEDILOL 6.25 MG TAB PO SCH (10:31)
== END 2016-11-11 13:29 | disposition home or self-care (01) ==
LOC: NEPE 10:00 → NEDA 15:20 → NEPFCDU 19:41
PROVIDERS: ADMIT Hospitalist; ATTEND Hospitalist
DX: J44.0 Chronic obstructive pulmonary disease with (acute) lower respiratory infection (principal); D72.829 Elevated white blood cell count, unspecified; R94.31 Abnormal electrocardiogram [ECG] [EKG]; E03.9 Hypothyroidism, unspecified; K74.60 Unspecified cirrhosis of liver; R06.02 Shortness of breath; I25.2 Old myocardial infarction; G89.29 Other chronic pain; G93.40 Encephalopathy, unspecified; Z87.01 Personal history of pneumonia (recurrent); Z87.891 Personal history of nicotine dependence; Z86.14 Personal history of Methicillin resistant Staphylococcus aureus infection; Z79.82 Long term (current) use of aspirin
CPT/HCPCS: 71020; 78452; 80048; 80053; 80061; 81001; 82140; 82550; 82948; 83735; 83880; 84439; 84443; 84481; 84484; 85025; 85379; 85610; 85730; 87804; 93005; 93017; 94620; 94640; 94664; 96365; 96367; 96375; 99285; A9502; G0378; J0456; J0696; J1644; J2785; J2920; J2930; J7050